=== PATIENT | male | born 1965 | race African-American/Black ===

== ENCOUNTER 2025-05-28 13:19 | Outpatient (AMB) | payer MEDICAID, SELFPAY ==
--- NOTE | 2025-05-28 13:16 | A.PHYSOV_ITS ---
Vital Signs 05/28/25 13:20 Height 5 ft 3 in Weight 231 lb BMI 40.9 Intake Visit Reasons: NPV VMA Ref- left sciatica (MRI 05/25 @ [facility]) Intake Note: Patient is a 60 year old male here today for a new patient office visit. 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 He initially believed it was related to his mattress and replaced it, but the pain persisted. The pain has progressed to the point where it wakes him in the morning, and he reports being unable to walk upon waking. He reports the pain radiates from his back down his left leg, and he is starting to experience it in the right leg as well, accompanied by numbness and tingling. For treatment, he has previously taken prednisone and is currently on tramadol, which he reports provides no significant relief. 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 He has a history of receiving cortisone injections in his knees. I reviewed the referring provider's no prior to consultation. Pain Description - Onset: The patient's back pain started around March. - Location: The pain is located in his lower back. - Radiation: The pain radiates down the back of his left leg and is beginning to radiate into his right leg. - Character: The pain is associated with numbness and tingling, which is more pronounced in the left leg. - Severity: The patient rated his pain as a 4/10 at the time of the visit, but reports it is an 8 or 9 out of 10 in the morning. - Timing: The pain is worse in the morning, described as crippling and preventi ng him from walking. - Exacerbating Factors: Bending forward and leaning backward both increase the pain. - Relieving Factors: He keeps his leg straight, which he states helps. Results - MRI: Findings reviewed, showing the most significant changes at the L4-5 level. - There is moderate foraminal narrowing on the left and moderate to severe foraminal narrowing on the right at L4-5. [facility] Surgical History History of carpal tunnel surgery H/O oral surgery Social History Alcohol intake: current Alcohol intake frequency: does not drink Patient Tobacco Use Status: Current everyday Tobacco user Use of substances other than those prescribed or required for medical reasons: Yes Substance Use Type: Former Substance User Substance Use Type Other:: marijuana, crack cocaine quite September 2018 Review of Systems Narrative Review of Systems - Musculoskeletal: Reports lower back pain. - Neurological: Reports pain radiating down his left leg and beginning in the right leg. - He also reports associated numbness and tingling in his leg. Physical Exam Exam Exam: Physical Exam - General: Patient keeps his left leg in a straight position when standing. - Back: Palpation of the lower back elicits tenderness. - Lumbar range of motion is limited by pain with both forward flexion and backward extension. - Neurological: Reflexes were tested in the lower extremities. - Motor strength testing of the feet elicited some pain and increased tingling in the left leg. Positive straight leg raise - Sensation to touch is altered, with the patient reporting more tingling in the left leg compared to the right. Vital Signs: BMI result Body Mass Index 40.9 Assessment & Plan Assessment & Plan (1) Lumbar radiculopathy: Code(s): M54.16 - Radiculopathy, lumbar region Category: Medical (2) Lumbar spondylosis: Code(s): M47.816 - Spondylosis without myelopathy or radiculopathy, lumbar region Category: Medical Plan Pain Management - Affect: The patient reports feeling incredibly angry upon waking due to pain severity and describes the morning pain as crippling. - Analgesia: He is currently taking tramadol, which he reports does not help. - Activities of Daily Living: The pain significantly impacts his ability to function, particularly in the morning when he is unable to walk. - Goals: The patient's functional goals include being able to perform stretching exercises and to stop taking oral pain medications. Plan Patient was informed and verbally consented to the use of an ambient scribe for clinic note documentation during this visit. 1. Lumbar Spinal Stenosis The patient's clinical presentation of chronic low back pain with left-sided radiculopathy is consistent with his MRI findings of L4-5 foraminal stenosis. His pain is inadequately controlled with oral tramadol. The plan is to proceed with a left L4 transforaminal epidural steroid injection to target the presumed source of his radicular symptoms. This procedure will be performed under X-ray guidance to ensure accurate medication placement and will be offered with sedation for patient comfort. The goal of the injection is to achieve at least 50% pain relief, thereby improving his functional ability and reducing the need for oral pain medication. The order will be placed for the injection, and the patient will be contacted by scheduling once authorization is obtained. Dr. Nguyen will perform the procedure. A follow-up visit will be scheduled with me three weeks after the injection. Discussion Notes I reviewed the patient's MRI findings with him, explaining that there is narrowing at the L4-5 level, which is moderate on the left and [id number] on the right, and that his symptoms are primarily on the left side. I recommended a left L4 transforaminal epidural steroid injection as the next step in treatment. I explained that the procedure involves injecting cortisone into his back to calm the inflammation around the nerve, with a goal of achieving at least 50% pain reduction for a period that typically lasts three to six months. I discussed the risks, including a small risk of infection, bleeding, or nerve damage, and explained that using X-ray guidance minimizes these risks. I noted the benefits include potential for significant pain relief, improved function, and a reduction in the need for oral pain medications. We discussed that he could be put to sleep (sedated) for the procedure, which he preferred. The patient understood the proposed plan and consented to proceed with the injection. I outlined the logistical next steps, including placing the order, waiting for authorization, and scheduling the procedure with Dr. Nguyen, to be followed by a three-week follow-up appointment with me. Patient Instructions - We will schedule you for a cortisone shot (epidural injection) in your lower back to help with your pain. - Our office will call you to schedule the appointment once it is approved by your insurance, which may take a couple of weeks. - When we call, we will give you instructions about eating and taking your medications before the procedure. - You will have the option to be sedated (put to sleep) for the injection. - The goal of this injection is to reduce your pain, which should make it easier for you to move and do activities like stretching, as well as reduce your need for pain pills. - Please schedule a follow-up appointment to see me about three weeks after you have the injection. Orders: Referrals Physiatry Procedure Notification M54.16 - Radiculopathy, lumbar region Coding Level of Care Code New Pt Level 4 (59374) Diagnoses Lumbar radiculopathy M54.16 Lumbar spondylosis M47.816
[2025-05-28 13:20] VITALS: BMI 40.9
--- OUTSIDE RECORDS SUMMARY | 2025-05-28 15:06 | XMS_ITS | Clinical Summary ---
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 Name Role Phone Unavailable Primary Care Provider Unavailabl e Social History Tobacco Use Types Packs/Day Years Used Date Smoking Tobacco: Never Assessed Sex and Gender Information Value Date Recorded Sex Assigned at Not on file Legal Sex Male 8:31 PM EST Gender Identity Not on file Sexual Orientation Not on file Plan of Treatment Health Maintenance Due Date Last Done Comments Colorectal Cancer Screening: Colonoscopy 1967 DTaP,Tdap,and Td Vaccines (1 - Tdap) 1986 Hepatitis B Vaccines (1 of 3 - 19+ 3-dose series) 1986 Pneumococcal Vaccine: 50+ Ye ars (1 of 1 - PCV) 2017 Zoster Vaccines (1 of 2) 2017 Depression Screening 06/10/2024 Cholesterol Screening (Lipid Panel) 12/17/2024 HIV Screening 12/17/2024 Hepatitis C Screening 12/17/2024 Social Influencers of Health Screening 12/17/2024 COVID-19 Vaccine (1 - 2024-2 6 season) 2025 Influenza Vaccine (#1) 2025 RSV Immunization Adult Patie nts (1 - 1-dose 75+ series) 2042 HIB Vaccines Aged Out No longer eligi ble based on patient's age to complete this topic HPV Vaccines Aged Out No longer eligi ble based on patient's age to complete this topic Hepatitis A Vaccines Aged Out No long er eligible based on patient's age to complete this topic IPV Vaccines Aged Out No longer eligi ble based on patient's age to complete this topic MMR Vaccines Aged Out No longer eligi ble based on patient's age to complete this topic Meningococcal ACWY Vaccine Aged Out N o longer eligible based on patient's age to complete this topic Meningococcal B Vaccine Aged Out No l onger eligible based on patient's age to complete this topic RSV Immunization Patients Un wilmer 20 months Aged Out No longer eligible b ased on patient's age to complete this topic Varicella Vaccines Aged Out No longer eligible based on patient's age to complete this topic
--- OUTSIDE RECORDS SUMMARY | 2025-05-28 15:06 | XMS_ITS | Continuity of Care Document ---
Author Organization [facility], Main Office Address [address] [facility] [address] [place] [address] Care Team Providers Care Bobcat Operator Name Role Phone RUTHANN TREJO Primary Care Provider SHAILA HERBERT Referring Provider [facility] Dentist [phone] RADHA MCCABE Dentist [facility] [place] Infectious Disease RADHA FONTANA Hand Surgeon MIRIAM COLLADO Coldfusion MAIK FONTANA Neurosurgeon LYNSEY RUBY General Surgeon [facility] Orthopedic Surgeon TED MARTINI Jacker Feeder ARMOND MUÑOZ Energy Infrastructure Engineer [phone] Assessment No assessment recorded. Plan of Treatment Reminders Order Date Submit Date Provider Last Modified By Organization Details Last Modified Time Details Appointments FOLLOW UP 30MIN 2025 01:00P M Ruthann matt MD Not available Not available Not available PE EST 2025 01:00P M uRthann matt MD Not available Not available Not available Lab None recorded. Referral pain managemen t referral - Back pain since early February and now with radiation into left leg. 2024 025 MARIVEL Israel MD, [address], [place], [address], 04/14/2025 09:49:08 Procedures None recorded. Surgeries None recorded. Imaging XR, lumbar spine - Low back pain with radiation into left leg/foot. R/o lesion 2024 025 DIANNA Not available 04/16/2025 11:58:59 MRI, lumbar spine, w/o contrast - Low back pain for 8 weeks. Doing PT which has not been helpful. Now with radiation into left leg. R/o stenosis. 2024 025 [email or web address] Not available 04/20/2025 08:24:17 Medication Orders Medrol (Jarrod) 4 mg tablets in a dose pack 2024 025 [facility], [address] [place], [address], 04/26/2025 05:02:13 cyclobenz aprine 10 mg tablet 2024 025 [facility], [address] [place], [address], 04/13/2025 15:23:30 meloxicam 15 mg tablet 2024 025 [facility], [address] [place], [address], 04/13/2025 15:23:15 Patient TargetsNo targets recorded. Patient InstructionsNo instructions recorded. 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 Referring Physician: Ruthann Trejo, Family Medicine, Encounter Date: 04/13/2025 Results Created Date Observation Date Name Description Value Unit Range Abnormal Flag Note LastModifiedBy Organization Detail LastModifiedTime 04/16/2004/14/2025 XR, lumba r spine Lumbar Spine 2 or 3 Views Reason : low back pain COMPAR ROBIN: None. FINDIN GS: No bone lesion s or fractu res. Mild multif ocal degene rative disc endpla te spurri ng and disc space narrow ing. Grade 1 shanti listhe sis of L4 on L5. Normal soft tissue s. IMPRES ADAM: Mild degene rative change of the lumbar spine with no radiog raphic eviden ce of lumbar verteb ral fractu re. WSN: [id number] Orderi ng Physic nergo: Ruthann Vazquez Dictat ed By: Rosalba Wagner ra, MD Dictat ed Date/T erica: 11:55 a Review ed By: Rosalba Wagner ra, MD Signed By: Rosalba Wagner ra, MD Signed Date/T erica: 11:55 am Transc ribed By: RONNIE Transc ribed Date/T erica: 11:51 am Patien t Class: Outpat ient [facility] (Outpt Imaging) [address] [facility], [place], [address], 04/16/2025 12:14:44 05/27/20 25 05/25/2025 MRI, lumba r spine , w/o contr ast MRI Lumbar Spine W/O Contra st INDICA TION: Reason : M54.10 ; Clinic al Questi on(s): Other: - TECHNI QUE: Multip lanar, multis equenc e MRI of the lumbar spine was perfor med withou t contra st. COMPAR ROBIN: Lumbar spine radiog raphs 025. FINDIN GS: LOCALI ZER: No additi onal findin gs on limite d locali zer images . NUMBER ING: The study assume s 5 non-ri b-bear ing lumbar type verteb ral bodies . ALIGNM ENT, VERTEB ANS, MARROW , AND DISCS: Subtle shanti listhe sis of L4 on L5. Otherw ise, alignm ent is normal . Verteb ral body height s are preser sohan. Minima l Modic type I signal change s at T11-T1 2, L3-L4, and L4-L5. Multil evel facet arthro ousmane with associ ated degene rative /react lexi marrow signal change s at L4-L5 bilate rally. Disc desicc ation at T11-T1 2, L3-L4, and L4-L5 with loss of interv ertebr al disc height at these levels . Otherw ise, the interv ertebr al discs are mainta ined. CONUS: The conus is normal in signal and contou r, with normal level of termin ation at T12-L1 . PARASP INAL TISSUE S: The parasp inal soft tissue s are unrema rkable . DETAIL ED FINDIN GS BY LEVEL: T12-L1 : No signif icant canal stenos is or neural forami nal narrow ing. L1-L2: No signif icant canal stenos is or neural forami nal narrow ing. L2-L3: Subtle disc bulge. No signif icant canal stenos is. Mild bilate ral neural forami nal narrow ing. L3-L4: Diffus e disc bulge. Facet spurri ng. No signif icant canal stenos is. Mild bilate ral neural forami nal narrow ing. L4-L5: Diffus e disc bulge, ligame ntum flavum thicke prieto, and advanc ed facet arthro ousmane with bilate ral facet joint effusi ons and reacti ve marrow signal change s as above. Mild canal stenos is. Modera te left and modera te to severe right neural forami nal narrow ing crowdi ng of the exitin g right L4 nerve root. L5-S1: Facet arthro ousmane. No signif icant canal stenos is or neural forami nal narrow ing. IMPRES ADAM: Degene rative change s of the lumbar spine as above which are most advanc ed at L4-L5. Modera te to severe right neural forami nal narrow ing with crowdi ng of the exitin g right L4 nerve root at this level. WSN: [id number] Orderi ng Physic negro: Ruthann Vazquez Dictat ed By: Malini Crenshaw MD Dictat ed Date/T erica: 2:50 pm Review ed By: Malini Crenshaw MD Signed By: Malini Crenshaw MD Signed Date/T erica: 2:50 pm Transc ribed By: RONNIE Transc ribed Date/T erica: 2:43 pm Patien t Class: Outpat ient INTERFACE [facility] (Outpt Imaging) [address] , [place], [address], 05/27/2025 14:55:30 Result Notes None recorded. Problems Name Problem SNOMED Code Status Onset Date Resolution Date Notes Provider Name and Address Organization Details Recorded Time Fracture of two ribs 25374364 Active Kellysonja Cordova [facility], [facility] 0 13:52:52 Pityrias is versicol or 84435582 Active Kelly Smarty Ants [facility], [facility] 0 13:52:52 Hearing loss 50407208 Active Kelly [facility], [facility] 0 13:52:52 Human immunode ficiency virus enteropa thy 273515144 Active Mery Gao [facility], [facility] 0 09:57:02 Asymptom atic human immunode ficiency virus infectio n 08203933 Active 1990 Kelly [facility], [facility] 0 13:52:52 Administ ration of bacteria l and viral vaccine Completed 200701/14/2014 RECORDED 02/17/20 08 3:08PM BY KAVYA GRANADOS, OFFICE VISIT Ruthann matt MD [address] [facility] [address], [place], [address], [facility] 6 19:06:01 Administ ration of bacteria l and viral vaccine Completed 200701/15/2014 RECORDED 02/17/20 08 3:08PM BY KAVYA GRANADOS, OFFICE VISIT Ruthann matt MD [address] [facility] [address], [facility] [place], [address], [facility] 6 19:06:01 Administ ration of bacteria l and viral vaccine Completed 200712/22/2013 RECORDED 02/17/20 08 3:08PM BY KAVYA GRANADOS, OFFICE VISIT Ruthann matt MD [address] [facility] [address], [place], [address], [facility] 6 19:06:01 Eruption [id number] Completed 200801/14/2014 RECORDED 02/02/20 09 9:42AM BY AZUCENA COBB ON/ADDEN DUM Ruthann matt MD [address] [facility] [address], [place], [address], [facility] 6 19:06:01 Eruption [id number] Completed 200801/15/2014 RECORDED 02/02/20 09 9:42AM BY AZUCENA COBB ON/ADDEN MARY matt MD [address] [facility] [address], [place], [address], [facility] 6 19:06:01 Eruption [id number] Completed 200812/22/2013 RECORDED 02/02/20 09 9:42AM BY AZUCENA COBB ON/ADDEN DUM Ruthann matt MD [address] [facility] [address], [place], [address], [facility] 6 19:06:01 Influenz a vaccine needed 90958445742 06 Completed 200901/14/2014 RECORDED 06/29/19 10 10:39AM BY RUTHANN SADLER MD, OFFICE VISIT Ruthann matt MD [address] [facility] [address] [facility] [address], [place], [address], [facility] 6 19:06:01 Influenz a vaccine needed 13685360420 06 Completed 200901/15/2014 RECORDED 06/29/19 10 10:39AM BY RUTHANN SADLER MD, OFFICE VISIT Ruthann matt MD [address] [facility] [address] [facility] [address], [place], [address], [facility] 6 19:06:01 Influenz a vaccine needed 25649440181 06 Completed 200912/22/2013 RECORDED 06/29/19 10 10:39AM BY RUTHANN SADLER MD, OFFICE VISIT Ruthann matt MD [address], [facility] [place], [address], [facility] 6 19:06:01 Allergic rhinitis 25472986 Completed 200901/14/2014 RECORDED 05/02/20 10 1:28PM BY PRANEETH SKY, ANNOTATI ON/ADDEN DUM Ruthann matt MD [address], [facility] [place], [address], [facility] 7 14:14:34 Allergic rhinitis 95125174 Completed 200901/15/2014 RECORDED 05/02/20 10 1:28PM BY PRANEETH SKY, ANNOTATI ON/ADDEN DUM Ruthann matt MD [address], [facility] [place], [address], [facility] 7 14:14:34 Allergic rhinitis 46493888 Completed 200912/22/2013 RECORDED 05/02/20 10 1:28PM BY PRANEETH SKY, ANNOTATI ON/ADDEN DUM Ruthann matt MD [address] [facility] [address], [facility] [place], [address], [facility] 7 14:14:34 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 Followed by Dr Modi. On lifelong Coumadin . Kelly warren, [facility] 0 13:52:52 Abdomina l pain 44436452 Completed 201101/14/2014 IMPRESSI ON: X 10 DAYS, WITH FAILURE TO MOVE BOWELS. NO EFFECT WITH ENEMAS AND OTC LAXATIVE S. STAT ABDO XRAY APPEARS NEG. I HAVE CONCERN REGARDIN G HIS HIGH LEVEL OF DISCOMFO RT, LACK OF RESPONSE TO MULTIPLE ENEMAS AND OTC LAXATIVE S. DISCUSSE D OPTIONS, ELECTED TO SEEK IMMEDIAT E TX/W/U VIA ER AT [facility]. CALLED IN EXPECT.; RECORDED 01/10/20 12 10:20AM BY AZUCENA FULLER ON/DAVID matt MD [address] [facility] [address], [place], [address], [facility] 6 19:06:01 Left upper quadrant pain 715150215 Completed 201101/14/2014 RECORDED 01/10/20 12 10:20AM BY AZUCENA FULLER/DAVID matt MD [address] [facility] [address], [place], [address], [facility] 6 19:06:01 Chronic allergic conjunct ivitis 44805814 Completed 201101/14/2014 RECORDED 01/10/20 12 10:20AM BY AZUCENA FULLER/DAVID matt MD [address] [facility] [address], [place], [address], [facility] 6 19:06:01 Acute asthma 132878169 Completed 201101/14/2014 IMPRESSI ON: MILD; RECORDED 01/10/20 12 10:20AM BY AZUCENA FULLER ON/DAVID matt MD [address] [facility] [address], [place], [address], [facility] 6 19:06:01 Digestiv e symptom 762514048 Completed 201101/14/2014 RECORDED 01/10/20 12 10:20AM BY AZUCENA FULLER/DAVID matt MD [address] [facility] [address], [place], [address], [facility] 6 19:06:01 Bronchit is 38590035 Completed 201101/14/2014 RECORDED 01/10/20 12 10:20AM BY AZUCENA FULLER ON/DAVID matt MD [address] [facility] [address], [place], [address], [facility] 6 19:06:01 Pain in limb 03090306 Completed 201101/14/2014 RECORDED 01/10/20 12 10:20AM BY AZUCENA FULLER ON/DAVID matt MD [address] [facility] [address], [place], [address], [facility] 6 19:06:01 Conjunct ivitis 8765925 Completed 201101/14/2014 IMPRESSI ON: SEE OTHER MESSAGE; RECORDED 01/10/20 12 10:20AM BY AZUCENA FULLER ON/DAVID matt MD [address] [facility] [address], [place], [address], [facility] 6 19:06:01 Counseli ng Completed 201101/14/2014 IMPRESSI ON: RE COUMADIN MONITORI NG, DIET. DUE FOR REPEAT PT/INR TODAY, THEN AGAIN SATURDAY. ANDRÉS BROWN WITH BRANCH LEAD WHO WILL BE IN COMMUNIC ATION WITH PT WE CONTINUE TO FOLLOW TO THERAPEU TIC LEVEL AND THEN W/REG MONITORI NG.; RECORDED 01/10/20 12 10:20AM BY AZUCENA FULLER/DAVID matt MD [address] [facility] [address], [place], [address], [facility] 6 19:06:01 Function al visual loss 618842665 Completed 201101/14/2014 RECORDED 01/10/20 12 10:20AM BY AZUCENA FULLER ON/DAVID matt MD [address] [facility] [address], [place], [address], [facility] 6 19:06:01 Abnormal weight gain 416288409 Completed 201101/14/2014 RECORDED 01/10/20 12 10:20AM BY AZUCENA FULLER ON/DAVID matt MD [address] [facility] [address], [facility] [place], [address], [facility] 6 19:06:01 Hearing loss 47442743 Completed 201101/14/2014 RECORDED 01/10/20 12 10:20AM BY AZUCENA FULLER ON/DAVID matt MD [address] [facility] [address], [facility] [place], [address], [facility] 6 19:06:01 Immunode ficiency disorder 046244177 Completed 201101/14/2014 RECORDED 01/10/20 12 10:20AM BY AZUCENA FULLER ON/DAVID matt MD [address] [facility] [address], [place], [address], [facility] 6 19:06:01 Disorder of upper respirat ory system Completed 201101/14/2014 RECORDED 01/10/20 12 10:20AM BY AZUCENA FULLER ON/DAVID matt MD [address] [facility] [address], [place], [address], [facility] 6 19:06:01 Breast finding [id number] Completed 201101/14/2014 RECORDED 01/10/20 12 10:20AM BY AZUCENA FULLER ON/DAVID matt MD [address] [facility] [address], [place], [address], [facility] 6 19:06:01 Abnormal ity of systemic vein Completed 201101/14/2014 RECORDED 01/10/20 12 10:20AM BY AZUCENA FULLER ON/DAVID matt MD [address] [facility] [address], [place], [address], [facility] 6 19:06:01 Shoulder joint pain 198484092 Completed 201101/14/2014 RECORDED 01/10/20 12 10:20AM BY AZUCENA FULLER ON/DAVID matt MD [address] [facility] [address], [place], [address], [facility] 6 19:06:01 Phlebiti s and thrombop hlebitis Completed 201101/14/2014 RECORDED 01/10/20 12 10:20AM BY AZUCENA FULLER ON/DAVID matt MD [address] [facility] [address], [place], [address], [facility] 6 19:06:01 Abdomina l pain 62487933 Completed 201101/15/2014 IMPRESSI ON: X 10 DAYS, WITH FAILURE TO MOVE BOWELS. NO EFFECT WITH ENEMAS AND OTC LAXATIVE S. STAT ABDO XRAY APPEARS NEG. I HAVE CONCERN REGARDIN G HIS HIGH LEVEL OF DISCOMFO RT, LACK OF RESPONSE TO MULTIPLE ENEMAS AND OTC LAXATIVE S. DISCUSSE D OPTIONS, ELECTED TO SEEK IMMEDIAT E TX/W/U VIA ER AT [facility]. CALLED IN EXPECT.; RECORDED 01/10/20 12 10:20AM BY AZUCENA FULLER/DAVID matt MD [address] [facility] [address], [place], [address], [facility] 6 19:06:01 Left upper quadrant pain 391796311 Completed 201101/15/2014 RECORDED 01/10/20 12 10:20AM BY AZUCENA FULLER ON/DAVID matt MD [address], [facility] [place], [address], [facility] 6 19:06:01 Chronic allergic conjunct ivitis 85453299 Completed 201101/15/2014 RECORDED 01/10/20 12 10:20AM BY AZUCENA FULLER ON/DAVID matt MD [address], [facility] [place], [address], [facility] 6 19:06:01 Acute asthma 286168531 Completed 201101/15/2014 IMPRESSI ON: MILD; RECORDED 01/10/20 12 10:20AM BY AZUCENA FULLER ON/DAVID matt MD [address], [place], [address], [facility] 6 19:06:01 Digestiv e symptom 184377855 Completed 201101/15/2014 RECORDED 01/10/20 12 10:20AM BY AZUCENA FULLER ON/DAVID matt MD [address], [facility] [place], [address], [facility] 6 19:06:01 Bronchit is [id number] Completed 201101/15/2014 RECORDED 01/10/20 12 10:20AM BY AZUCENA FULLER ON/DAVID matt MD [address], [facility] [place], [address], [facility] 6 19:06:01 Pain in limb 84067507 Completed 201101/15/2014 RECORDED 01/10/20 12 10:20AM BY AZUCENA FULLER/DAVID matt MD [address] [facility] [address], [place], [address], [facility] 6 19:06:01 Conjunct ivitis 8588273 Completed 201101/15/2014 IMPRESSI ON: SEE OTHER MESSAGE; RECORDED 01/10/20 12 10:20AM BY AZUCENA FULLER ON/DAVID matt MD [address] [address], [facility] [place], [address], [facility] 6 19:06:01 Counseli ng Completed 201101/15/2014 IMPRESSI ON: RE COUMADIN MONITORI NG, DIET. DUE FOR REPEAT PT/INR TODAY, THEN AGAIN SATURDAY. ANDRÉS BROWN WITH BRANCH LEAD WHO WILL BE IN COMMUNIC ATION WITH PT WE CONTINUE TO FOLLOW TO THERAPEU TIC LEVEL AND THEN W/REG MONITORI NG.; RECORDED 01/10/20 12 10:20AM BY AZUCENA FULLER ON/DAVID matt MD [address] [address], [place], [address], [facility] 6 19:06:01 Function al visual loss 261295065 Completed 201101/15/2014 RECORDED 01/10/20 12 10:20AM BY AZUCENA FULLER ON/DAVID matt MD [address] [facility] [address], [facility] [place], [address], [facility] 6 19:06:01 Abnormal weight gain 543715287 Completed 201101/15/2014 RECORDED 01/10/20 12 10:20AM BY AZUCENA FULLER/DAVID matt MD [address] [address], [place], [address], [facility] 6 19:06:01 Hearing loss 12501497 Completed 201101/15/2014 RECORDED 01/10/20 12 10:20AM BY AZUCENA FULLER ON/DAVID matt MD [address] [facility] [address], [place], [address], [facility] 6 19:06:01 Immunode ficiency disorder 682866724 Completed 201101/15/2014 RECORDED 01/10/20 12 10:20AM BY AZUCENA FULLER ON/DAVID matt MD [address] [facility] [address], [place], [address], [facility] 6 19:06:01 Disorder of upper respirat ory system Completed 201101/15/2014 RECORDED 01/10/20 12 10:20AM BY AZUCENA FULLER ON/DAVID matt MD [address] [facility] [address], [place], [address], [facility] 6 19:06:01 Breast finding [id number] Completed 201101/15/2014 RECORDED 01/10/20 12 10:20AM BY AZUCENA FULLER ON/DAVID matt MD [address] [facility] [address], [place], [address], [facility] 6 19:06:01 Abnormal ity of systemic vein Completed 201101/15/2014 RECORDED 01/10/20 12 10:20AM BY AZUCENA FULLER ON/DAVID matt MD [address] [facility] [address], [place], [address], [facility] 6 19:06:01 Shoulder joint pain 893418027 Completed 201101/15/2014 RECORDED 01/10/20 12 10:20AM BY AZUCENA FULLER/DAVID matt MD [address] [facility] [address], [place], [address], [facility] 6 19:06:01 Phlebiti s and thrombop hlebitis Completed 201101/15/2014 RECORDED 01/10/20 12 10:20AM BY AZUCENA FULLER ON/DAVID matt MD [address] [facility] [address], [place], [address], [facility] 6 19:06:01 Abdomina l pain 72880456 Completed 201112/22/2013 IMPRESSI ON: X 10 DAYS, WITH FAILURE TO MOVE BOWELS. NO EFFECT WITH ENEMAS AND OTC LAXATIVE S. STAT ABDO XRAY APPEARS NEG. I HAVE CONCERN REGARDIN G HIS HIGH LEVEL OF DISCOMFO RT, LACK OF RESPONSE TO MULTIPLE ENEMAS AND OTC LAXATIVE S. DISCUSSE D OPTIONS, ELECTED TO SEEK IMMEDIAT E TX/W/U VIA ER AT [facility]. CALLED IN EXPECT.; RECORDED 01/10/20 12 10:20AM BY AZUCENA FULLER/DAVID matt MD [address] [facility] [address], [place], [address], [facility] 6 19:06:01 Left upper quadrant pain 398743677 Completed 201112/22/2013 RECORDED 01/10/20 12 10:20AM BY AZUCENA FULLER/DAVID matt MD [address] [facility] [address], [place], [address], [facility] 6 19:06:01 Chronic allergic conjunct ivitis 42064666 Completed 201112/22/2013 RECORDED 01/10/20 12 10:20AM BY AZUCENA FULLER ON/DAVID matt MD [address] [facility] [address], [place], [address], [facility] 6 19:06:01 Acute asthma 488586165 Completed 201112/22/2013 IMPRESSI ON: MILD; RECORDED 01/10/20 12 10:20AM BY AZUCENA FULLER ON/DAVID matt MD [address] [facility] [address], [place], [address], [facility] 6 19:06:01 Digestiv e symptom 940219829 Completed 201112/22/2013 RECORDED 01/10/20 12 10:20AM BY AZUCENA FULLER ON/DAVID matt MD [address] [facility] [address], [place], [address], [facility] 6 19:06:01 Bronchit is 99143941 Completed 201112/22/2013 RECORDED 01/10/20 12 10:20AM BY AZUCENA FULLER ON/DAVID matt MD [address] [facility] [address], [place], [address], [facility] 6 19:06:01 Pain in limb 62819043 Completed 201112/22/2013 RECORDED 01/10/20 12 10:20AM BY AZUCENA FULLER/DAVID matt MD [address] [facility] [address], [place], [address], [facility] 6 19:06:01 Conjunct ivitis 1265724 Completed 201112/22/2013 IMPRESSI ON: SEE OTHER MESSAGE; RECORDED 01/10/20 12 10:20AM BY AZUCENA FULLER ON/DAVID matt MD [address], [place], [address], [facility] 6 19:06:01 Counseli belen Completed 201112/22/2013 IMPRESSI ON: RE COUMADIN MONITORI NG, DIET. DUE FOR REPEAT PT/INR TODAY, THEN AGAIN SATURDAY. ANDRÉS BROWN WITH BRANCH LEAD WHO WILL BE IN COMMUNIC ATION WITH PT WE CONTINUE TO FOLLOW TO THERAPEU TIC LEVEL AND THEN W/REG MONITORI NG.; RECORDED 01/10/20 12 10:20AM BY AZUCENA FULLER/DAVID matt MD [address] [facility] [address], [place], [address], [facility] 6 19:06:01 Function al visual loss 102322025 Completed 201112/22/2013 RECORDED 01/10/20 12 10:20AM BY AZUCENA FULLER ON/DAVID matt MD [address] [facility] [address], [place], [address], [facility] 6 19:06:01 Abnormal weight gain 122333748 Completed 201112/22/2013 RECORDED 01/10/20 12 10:20AM BY AZUCENA FULLER/DAVID matt MD [address] [facility] [address], [place], [address], [facility] 6 19:06:01 Hearing loss 98472562 Completed 201112/22/2013 RECORDED 01/10/20 12 10:20AM BY AZUCENA FULLER/DAVID matt MD [address] [facility] [address], [place], [address], [facility] 6 19:06:01 Immunode ficiency disorder 071010223 Completed 201112/22/2013 RECORDED 01/10/20 12 10:20AM BY AZUCENA FULLER/DAVID matt MD [address], [place], [address], [facility] 6 19:06:01 Disorder of upper respirat ory system Completed 201112/22/2013 RECORDED 01/10/20 12 10:20AM BY AZUCENA FULLER/DAVID matt MD [address], [place], [address], [facility] 6 19:06:01 Breast finding [id number] Completed 201112/22/2013 RECORDED 01/10/20 12 10:20AM BY AZUCENA FULLER/DAVID matt MD [address], [place], [address], [facility] 6 19:06:01 Abnormal ity of systemic vein Completed 201112/22/2013 RECORDED 01/10/20 12 10:20AM BY AZUCENA FULLER/DAVID matt MD [address], [place], [address], [facility] 6 19:06:01 Shoulder joint pain 781745653 Completed 201112/22/2013 RECORDED 01/10/20 12 10:20AM BY AZUCENA FULLER/DAVID matt MD [address], [place], [address], [facility] 6 19:06:01 Phlebiti s and thrombop hlebitis Completed 201112/22/2013 RECORDED 01/10/20 12 10:20AM BY CAMRON FULLERATI ON/DAVID matt MD [address] [address], [place], [address], [facility] 6 19:06:01 Acute pharyngi tis 717393624 Completed 201101/14/2014 IMPRESSI ON: RAPID STREP NEGATIVE , C/W VIRAL INFECTIO N, RECOMMEN D SUPPORTI VE TREATMEN T.; RECORDED 04/14/20 12 11:30AM BY MERY RHODES I, ANNOTATI ON/ADDEN MARY matt MD [address] [address], [place], [address], [facility] 6 19:06:01 Acute pharyngi tis [id number] Completed 201101/15/2014 IMPRESSI ON: RAPID STREP NEGATIVE , C/W VIRAL INFECTIO N, RECOMMEN D SUPPORTI VE TREATMEN T.; RECORDED 04/14/20 12 11:30AM BY MERY RHODES I, CAMRONATI ON/DAVID matt MD [address] [address], [place], [address], [facility] 6 19:06:01 Acute pharyngi tis [id number] Completed 201112/22/2013 IMPRESSI ON: RAPID STREP NEGATIVE , C/W VIRAL INFECTIO N, RECOMMEN D SUPPORTI VE TREATMEN T.; RECORDED 04/14/20 12 11:30AM BY CAMRON FULLERATI ON/ADDDERECK matt MD [address] [address], [place], [address], [facility] 6 19:06:01 Depressi ve disorder [id number] Completed 201201/14/2014 RECORDED 07/09/19 13 1:05AM BY QUIN RODRIGUEZ MA, ANNOTATI ON/ADDEN MARY matt MD [address] [facility] [address], [place], [address], [facility] 6 19:06:01 Onychomy cosis due to dermatop hyte [id number] Completed 201201/14/2014 RECORDED 07/09/19 13 1:06AM BY AZUCENA FULLER ON/LUCRECIAEN MARY matt MD [address] [facility] [address], [place], [address], [facility] 6 19:06:01 Depressi ve disorder 34268599 Completed 201201/15/2014 RECORDED 07/09/19 13 1:05AM BY QUIN RODRIGUEZ MA, AZUCENA ON/LUCRECIAEN MARY matt MD [address] [facility] [address], [facility] [place], [address], [facility] 6 19:06:01 Onychomy cosis due to dermatop hyte 869725026 Completed 201201/15/2014 RECORDED 07/09/19 13 1:06AM BY AZUCENA FULLER ON/DAVID matt MD [address] [facility] [address], [place], [address], [facility] 6 19:06:01 Depressi ve disorder [id number] Completed 201212/22/2013 RECORDED 07/09/19 13 1:05AM BY QUIN RODRIGUEZ MA, AZUCENA ON/LUCRECIAEN MARY matt MD [address] [facility] [address], [place], [address], [facility] 6 19:06:01 Onychomy cosis due to dermatop hyte 386894212 Completed 201212/22/2013 RECORDED 07/09/19 13 1:06AM BY AZUCENA FULLER ON/DAVID matt MD [address], [place], [address], [facility] 6 19:06:01 Knee pain Completed 201201/14/2014 RECORDED 07/15/19 13 11:37AM BY AZUCENA FULLER ON/DAVID matt MD [address], [facility] [place], [address], [facility] 6 19:06:01 Renewal of prescrip tion Completed 201201/14/2014 RECORDED 07/15/19 13 11:37AM BY AZUCENA FULLER ON/DAVID matt MD [address], [facility] [place], [address], [facility] 6 19:06:01 Knee pain Completed 201201/15/2014 RECORDED 07/15/19 13 11:37AM BY AZUCENA FULLER ON/DAVID matt MD [address], [facility] [place], [address], [facility] 6 19:06:01 Renewal of prescrip tion Completed 201201/15/2014 RECORDED 07/15/19 13 11:37AM BY AZUCENA FULLER ON/DAVID matt MD [address], [facility] [place], [address], [facility] 6 19:06:01 Knee pain Completed 201212/22/2013 RECORDED 07/15/19 13 11:37AM BY AZUCENA FULLER ON/DAVID matt MD [address], [facility] [place], [address], [facility] 6 19:06:01 Renewal of prescrip tion Completed 201212/22/2013 RECORDED 07/15/19 13 11:37AM BY AZUCENA FULLER/DAVID matt MD [address] [facility] [address], [facility] [place], [address], [facility] 6 19:06:01 Abscess of eyelid [id number] Completed 201201/14/2014 IMPRESSI ON: WILL FIND HOW TO GET HIM AN EYE DR APPT OR BE EVALUATE D URGENTLY SOMEWHER E. PT ALSO EXAMINED BY DR. RUPERT Perez; RECORDED 11/25/19 13 12:54PM BY AZUCENA FULLER/DAVID matt MD [address] [facility] [address], [facility] [place], [address], [facility] 6 19:06:01 Abscess of eyelid [id number] Completed 201201/15/2014 IMPRESSI ON: WILL FIND HOW TO GET HIM AN EYE DR APPT OR BE EVALUATE D URGENTLY SOMEWHER E. PT ALSO EXAMINED BY DR. RUPERT Perez; RECORDED 11/25/19 13 12:54PM BY AZUCENA FULLER/DAVID matt MD [address] [facility] [address], [facility] [place], [address], [facility] 6 19:06:01 Abscess of eyelid [id number] Completed 201212/22/2013 IMPRESSI ON: WILL FIND HOW TO GET HIM AN EYE DR APPT OR BE EVALUATE D URGENTLY SOMEWHER E. PT ALSO EXAMINED BY DR. RUPERT Perez; RECORDED 11/25/19 13 12:54PM BY AZUCENA FULLER/DAVID matt MD [address] [facility] [address], [facility] [place], [address], [facility] 6 19:06:01 External hordeolu m [id number] Completed 201201/14/2014 IMPRESSI ON: HAS AN OPHTHO APPT NEXT WEEK.; RECORDED 03/05/20 13 8:56AM BY AZUCENA FULLER ON/DAVID matt MD [address] [facility] [address], [place], [address], [facility] 6 19:06:01 External hordeolu m [id number] Completed 201201/15/2014 IMPRESSI ON: HAS AN OPHTHO APPT NEXT WEEK.; RECORDED 03/05/20 13 8:56AM BY AZUCENA FULLER ON/DAVID matt MD [address] [facility] [address], [place], [address], [facility] 6 19:06:01 External hordeolu m [id number] Completed 201212/22/2013 IMPRESSI ON: HAS AN OPHTHO APPT NEXT WEEK.; RECORDED 03/05/20 13 8:56AM BY AZUCENA FULLER ON/DAVID matt MD [address] [facility] [address], [place], [address], [facility] 6 19:06:01 Adult health examinat ion Completed 201201/14/2014 RECORDED 04/06/20 13 10:40AM BY AZUCENA FULLER ON/DAVID matt MD [address] [facility] [address], [place], [address], [facility] 6 19:06:01 Adult health examinat ion Completed 201201/15/2014 RECORDED 04/06/20 13 10:40AM BY AZUCENA UFLLER ON/DAVID matt MD [address] [address], [place], [address], [facility] 6 19:06:01 Adult health examinat ion Completed 201212/22/2013 RECORDED 04/06/20 13 10:40AM BY AZUCENA FULLER ON/DAVID matt MD [address] [facility] [address], [place], [address], [facility] 6 19:06:01 Acute upper respirat ory infectio n [id number] Completed 201201/14/2014 IMPRESSI ON: NO SIGNS FOR BACTERIA L INFECTIO ; WILL TREAT WITH CODEINE AND HE WILL CALL NEXT WEEK IF HIS SX PERSIST. ; RECORDED 05/04/20 13 11:01AM BY AZUCENA FULLER ON/DAVID matt MD [address] [facility] [address], [place], [address], [facility] 6 19:06:01 Acute upper respirat ory infectio n [id number] Completed 201201/15/2014 IMPRESSI ON: NO SIGNS FOR BACTERIA L INFECTIO ; WILL TREAT WITH CODEINE AND HE WILL CALL NEXT WEEK IF HIS SX PERSIST. ; RECORDED 05/04/20 13 11:01AM BY AZUCENA FULLER ON/DAVID matt MD [address] [facility] [address], [place], [address], [facility] 6 19:06:01 Acute upper respirat ory infectio n [id number] Completed 201212/22/2013 IMPRESSI ON: NO SIGNS FOR BACTERIA L INFECTIO ; WILL TREAT WITH CODEINE AND HE WILL CALL NEXT WEEK IF HIS SX PERSIST. ; RECORDED 05/04/20 13 11:01AM BY AZUCENA FULLER ON/DAVID matt MD [address] [facility] [address], [place], [address], [facility] 6 19:06:01 Anemia [id number] Completed 201301/14/2014 IMPRESSI ON: HGB 13 IN HOSPITAL BEFORE DISCHARG E, WILL REPEAT IN 2 WEEKS, LABSLIP GIVEN; RECORDED 08/04/19 14 10:34AM BY AZUCENA FULLER ON/DAVID matt MD [address], [facility] [place], [address], [facility] 6 19:06:01 Hemorrha ge of rectum and anus [id number] Completed 201301/14/2014 RECORDED 08/04/19 14 10:34AM BY AZUCENA FULLER ON/DAVID matt MD [address] [facility] [address], [place], [address], [facility] 6 19:06:01 Cough [id number] Completed 201301/14/2014 IMPRESSI ON: C/W VIRAL ILLNESS, LUNGS ARE CLEAR TODAY AND AFEBRILE , RECOMMEN D SUPPORTI VE TX INCL. REST AND HYDRATIO N BUT ADVISE TO RTC IF PERSISTE NT FEVER OR DYSPNEA. ; RECORDED 08/04/19 14 10:34AM BY AZUCENA FULLER ON/DAVID matt MD [address] [facility] [address], [facility] [place], [address], [facility] 6 19:06:01 Tobacco dependen ce syndrome 30691246 Completed 201301/14/2014 RECORDED 08/04/19 14 10:34AM BY [facility]NA [facility] ON[facility] 8 08:[facility]:50 Fever [id number] Completed 201301/14/2014 IMPRESSI ON: WITH TACHYPNE A, TACHYCAR KYLIE, ABDOMINA L TENDERNE SS, H/O SUPERIOR MESENTER IC VEIN THROMBOS IS ON COUMADIN , HIV+, SEND TO ER VIA AMBULANC E; RECORDED 08/04/19 14 10:34AM BY AZUCENA FULLER ON/DAVID matt MD [address], [place], [address], [facility] 6 19:06:01 Follow-u p encounte r Completed 201301/14/2014 RECORDED 08/04/19 14 10:34AM BY AZUCENA FULLER ON/DAVID matt MD [address], [place], [address], [facility] 6 19:06:01 Influenz a with respirat ory manifest ation other than pneumoni a Completed 201301/14/2014 IMPRESSI ON: RESOLVIN G, ON TAMIFLU, WILL COMPLETE COURSE; RECORDED 08/04/19 14 10:34AM BY AZUCENA FULLER ON/DAVID matt MD [address], [place], [address], [facility] 6 19:06:01 Anemia [id number] Completed 201301/15/2014 IMPRESSI ON: HGB 13 IN HOSPITAL BEFORE DISCHARG E, WILL REPEAT IN 2 WEEKS, LABSLIP GIVEN; RECORDED 08/04/19 14 10:34AM BY AZUCENA FULLER ON/DAVID matt MD [address], [place], [address], [facility] 6 19:06:01 Hemorrha ge of rectum and anus 683948441 Completed 201301/15/2014 RECORDED 08/04/19 14 10:34AM BY AZUCENA FULLER ON/DAVID matt MD [address], [place], [address], [facility] 6 19:06:01 Cough [id number] Completed 201301/15/2014 IMPRESSI ON: C/W VIRAL ILLNESS, LUNGS ARE CLEAR TODAY AND AFEBRILE , RECOMMEN D SUPPORTI VE TX INCL. REST AND HYDRATIO N BUT ADVISE TO RTC IF PERSISTE NT FEVER OR DYSPNEA. ; RECORDED 08/04/19 14 10:34AM BY AZUCENA FULLER ON/DAVID matt MD [address] [facility] [address], [place], [address], [facility] 6 19:06:01 Tobacco dependen ce syndrome [id number] Completed 201301/15/2014 RECORDED 08/04/19 14 10:34AM BY AZUCENA FULLER ON/DAVID [facility] [facility] 8 08:51:50 Fever [id number] Completed 201301/15/2014 IMPRESSI ON: WITH TACHYPNE A, TACHYCAR KYLIE, ABDOMINA L TENDERNE SS, H/O SUPERIOR MESENTER IC VEIN THROMBOS IS ON COUMADIN , HIV+, SEND TO ER VIA AMBULANC E; RECORDED 08/04/19 14 10:34AM BY AZUCENA FULLER ON/DAVID matt MD [address] [facility] [address], [place], [address], [facility] 6 19:06:01 Follow-u p encounte r Completed 201301/15/2014 RECORDED 08/04/19 14 10:34AM BY AZUCENA FULLER/DAVID matt MD [address] [facility] [address], [place], [address], [facility] 6 19:06:01 Influenz a with respirat ory manifest ation other than pneumoni a Completed 201301/15/2014 IMPRESSI ON: RESOLVIN G, ON TAMIFLU, WILL COMPLETE COURSE; RECORDED 08/04/19 14 10:34AM BY AZUCENA FULLER ON/DAVID mtat MD [address], [place], [address], [facility] 6 19:06:01 Anemia [id number] Completed 201312/22/2013 IMPRESSI ON: HGB 13 IN HOSPITAL BEFORE DISCHARG E, WILL REPEAT IN 2 WEEKS, LABSLIP GIVEN; RECORDED 08/04/19 14 10:34AM BY AZUCENA FULLER ON/DAVID matt MD [address] [facility] [address], [place], [address], [facility] 6 19:06:01 Hemorrha ge of rectum and anus [id number] Completed 201312/22/2013 RECORDED 08/04/19 14 10:34AM BY AZUCENA FULLER ON/DAVID matt MD [address] [facility] [address], [place], [address], [facility] 6 19:06:01 Cough 07238480 Completed 201312/22/2013 IMPRESSI ON: C/W VIRAL ILLNESS, LUNGS ARE CLEAR TODAY AND AFEBRILE , RECOMMEN D SUPPORTI VE TX INCL. REST AND HYDRATIO N BUT ADVISE TO RTC IF PERSISTE NT FEVER OR DYSPNEA. ; RECORDED 08/04/19 14 10:34AM BY AZUCENA FULLER ON/DAVID matt MD [address] 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 , HIV+, SEND TO ER VIA AMBULANC E; RECORDED 08/04/19 14 10:34AM BY AZUCENA FULLER ON/DAVID matt MD [address], [place], [address], [facility] 6 19:06:01 Follow-u p encounte r Completed 201312/22/2013 RECORDED 08/04/19 14 10:34AM BY AZUCENA FULLER ON/DAVID matt MD [address], [place], [address], [facility] 6 19:06:01 Influenz a with respirat ory manifest ation other than pneumoni a Completed 201312/22/2013 IMPRESSI ON: RESOLJESICA G, ON TAMIFLU, WILL COMPLETE COURSE; RECORDED 08/04/19 14 10:34AM BY AZUCENA FULLER ON/DAVID matt MD [address] [facility] [address], [place], [address], [facility] 6 19:06:01 Arthropa thy of knee joint 816051540 Active 2013 IMPRESSI ON: FOLLOWED BY [facility]; MCL sprain with medial compartm ent OA. Prescrib ed a rigid brace. 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 On lifelong coumadin Kelly warren [facility] 0 13:52:52 Degenera tion of lumbar interver tebral disc 56646766 Active 2013 Kelly warren [facility] 0 13:52:52 Blood coagulat ion disorder 83294026 Active 2013 Was positive for anticard iolipin Ab but has become negative . Followed by Dr Modi and on lifelong anticoag ulation. Kelly warren [facility] 0 13:52:52 Asthma 020555018 Active 2013 Kelly warren [facility] 0 13:52:52 Recurren t major depressi ve episodes , moderate 998503009 Active 2013 Kelly warren [facility] 0 13:52:52 Pure hypercho lesterol emia 141563896 Completed 201303/21/2017 RECORDED 12/03/19 14 2:09PM BY MERY RHODES I, OFFICE VISIT Ruthann matt MD [address] [facility] [address], [place], [address] 7 11:41:51 Insomnia 247428011 Active 2013 Kelly warren [facility] 0 13:52:52 Tobacco dependen ce syndrome 36323587 Active 2013 Kellysonja warren [facility] 0 13:52:52 Abnormal anal Papanico laou smear 128084749 Active 2014 Referred to surgery. Negative for AIN; needs yearly PAPs Kelly warren [facility] 0 13:52:52 Low grade squamous intraepi thelial lesion on anal Papanico laou smear [id number] 9106 Active 2015 followed by surgery; had anal biopsy which was negative ; followed yearly. Kelly warren [facility] 0 13:52:52 Hyperlip idemia 83237109 Active 2016 Kelly warren [facility] 0 13:52:52 Allergic rhinitis 33462511 Active 2016 Kellysonja warren, [facility] 0 13:52:52 Traumati c dislocat ion of joint of finger 063442628 Active 2017 4th finger. Reduced in ER Kelly warren, [facility] 0 13:52:52 Carpal tunnel syndrome of right wrist 66320815448 9108 Active 2018 Kelly warren, [facility] 0 13:52:52 Alcohol dependen ce 45568680 Active 2018 [facility], [facility] 0 13:52:52 Patellof emoral osteoart hritis 433422877 Active 2018 Nae lorenzo; seen at [facility]; PT and meds are only treatmen t. Kellysonja warren, [facility] 0 13:52:52 Gastroes ophageal reflux disease 788705701 Active 2018 [facility], [facility] 0 13:52:52 Obstruct lexi sleep apnea syndrome 55016064 Active 2019 [facility], [facility] 0 13:52:52 Essentia l hyperten adam 71850708 Active 2019 [facility], [facility] 0 13:52:52 Right lateral elbow tendinop athy 25655122962 9107 Active 2019 seen by ortho [facility], [facility] 0 13:52:52 Stenosin g tenosyno vitis 80205326 Active 2020 left ring finger; seen by Dr Fontana; consider ing surgery. Ruthann matt MD [address] [facility] [address], [facility] [address] , [facility] 1 08:42:39 Cyst 016241776 Active 2020 retinacu lar cyst of left ring finger. Dr Addi self ds surgery. Ruthann matt MD [address], [place], [address], [facility] 1 08:43:24 Dizzines s 065075394 Active 2020 Gertrude Woods PA-C [address], [place], [address], [facility] 1 15:12:20 Eczema of ear lobe 84923043 Active 2020 Gertrude Woods PA-C [address] [facility] [address], [place], [address], [facility] 1 15:17:29 SARS-CoV -2 Active 2021 Quin childs [place] null, [facility] 2 13:57:23 Hypercoa gulabili ty state 23204826 Active 2021 Josue Bacon MD [address], [place], [address], [facility] 2 14:33:58 Generali zed anxiety disorder 62215372 Active 2022 Ruthann matt MD [address] [facility] [address], [place], [address], [facility] 3 15:36:59 Type 2 diabetes mellitus 19223552 Active 2024 Ruthann matt MD [address] [facility] [facility] [address], [place], [address], [facility] 5 07:42:07 Problem Notes None recorded. Procedures Surgical History Date Name Laterality Status Provider Name and Address Organization Details Recorded Time 11/03/19 22 Carpal tunnel surgery completed Shireen Solorio [facility] 11/20/2021 15:10:46 10/22/19 21 Colonoscopy completed Deepika Peralta [facility] 10/28/2020 11:18:56 07/22/19 19 Carpal tunnel surgery completed Quin jeffrey MA [facility] 03/05/2019 15:05:37 05/28/20 18 Mini-Cog Test completed Mery Gao [facility] 05/28/2018 13:34:35 03/05/20 18 Unlisted px hands/fingers completed Shireen Solorio [facility] 03/06/2019 15:18:47 02/14/20 18 open reduction of dislocation completed Quin jeffrey MA [facility] 03/05/2019 15:10:44 01/11/20 18 tooth extraction completed Quin jeffrey MA [facility] 03/05/2019 14:40:16 05/31/20 15 Anoscopy and biopsy completed Quin jeffrey MA [facility] 03/05/2019 14:39:24 04/15/20 15 microscopic examination of anal Papanicolaou smear completed Quin jeffrey MA [facility] 03/05/2019 14:38:34 Oral surgery procedure completed Roxy Gupta MA [facility] 07/10/2022 13:07:19 Imaging Results None recorded. Procedure Notes None recorded. Medical Equipment None Reported. Allergies Allergen ID Allergen Name Allergen Category Reaction Reaction Severity Criticality Documentation Date Start Date Code Code System Note Provider Name and Address Organization Details Recorded Time 99684 hepatitis B surface antigen vaccine medicatio n itching Not available Not available 03/16/2022 25673 2 RxNorm BELKIS Colunga [facility] 2 13:59:27 Medications Name Sig Start Date Stop Date Status Note LastModified by Organization Details LastModified Time acetamino phen/code ine 300-15 mg tabs active Not Available Not Available Not Available loratadin e 10 mg tabs active Not Available Not Available Not Available vitamin d 55654 unit caps active Not Available Not Available No t Available vitamin d 50 mcg (1999 ut) 01/23 completed Not Available Not Available Not Available vitamin d 2000 unit tabs 04/09 completed Not Available Not Available Not Available selenium sulfide 2.5 % lotn active Not Available Not Available Not Available oxycodone /acetamin ophen 5-325 mg tabs active Not Available Not Available Not Available docqlace 100 mg caps active Not Available Not Available Not Available vitamin d3 2,000 unit tab 1 Tablet daily 02/07 completed Not Available Not Available Not Available d3 50 mcg (1999) tabs 09/26 completed Not Available Not Available Not Available warfarin sodium 2.5 mg tabs active Not Available Not Available Not Available bupropion hcl xl 300 mg tb24 active Not Available Not Available Not Available complera 200-25-30 0 mg tabs active Not Available Not Available No t Available bupropion hcl xl 150 mg tb24 active Not Available Not Available Not Available simvastat in 20 mg tabs active Not Available Not Available Not Available trazodone hcl 100 mg tabs active Not Available Not Available Not Available diazepam 5 mg tabs active Not Available Not Available No t Available citalopra m hydrobrom virgil 20 mg tabs active Not Available Not Available Not Available nasonex 50 mcg/act susp 11/22 completed Not Available Not Available Not Available lidocaine 5 % oint active Not Available Not Available Not Available vitamin d3 2,000 unit softg 07/10 completed Not Available Not Available Not Available vitamin d3 50 mcg (1999) 02/21 completed Not Available Not Available Not Available warfarin sodium 7.5 mg tabs active Not Available Not Available Not Available proair hfa 108 (90 base) mcg/act aers active Not Available Not Available Not Available cyclobenz aprine 10 mg tablet TAKE 1 TABLET BY MOUTH 3 TIMES A DAY FOR 5 DAYS active Not Available Not Available No t Available buspirone 5 mg tablet Take 1 tablet every day by oral route for 30 days. 05/21 completed Not Available Not Available Not Available Percocet 7.5 mg-325 mg tablet Take 1 tablet every 6 hours by oral route for 10 days. 05/21 completed Not Available Not Available Not Available venlafaxi ne ER 37.5 mg capsule,e xtended release 24 hr Take 1 capsule every day by oral route for 7 days. 02/03 completed Not Available Not Available Not Available prednison e 10 mg tablet 5 tabs daily for 4 days, then 4 tabs daily for 4 days, then 3 tabs daily for 4 days, then 2 tabs daily for 4 days then 1 tab daily for 4 days. 2024 active Not Available Not Available Not Avai lable venlafaxi ne ER 75 mg capsule,e xtended release 24 hr TAKE 1 CAPSULE BY MOUTH ONCE DAILY 05/21 completed Not Available Not Available Not Available atorvasta tin 20 mg tablet TAKE ONE TABLET BY MOUTH ONCE DAILY AT BEDTIME active Not Available Not Available No t Available venlafaxi ne 75 mg tablet 03/18 completed Not Available Not Available Not Available clindamyc in HCl 300 mg capsule TAKE 1 CAPSULE BY MOUTH EVERY 6 HOURS UNTIL GONE 07/10 completed Not Available Not Available Not Available albuterol sulfate 2.5 mg/3 mL (0.083 %) solution for nebulizat ion Inhale 3 mL 3 times a day by nebuliza tion route as needed. 03/21 completed Not Available Not Available Not Available citalopra m 40 mg tablet 03/18 completed Not Available Not Available Not Available triamcino lone acetonide 0.5 % topical cream Apply 1 applicat ion twice a day by topical route as needed. 04/02 completed Not Available Not Available Not Available cetirizin e 10 mg tablet TAKE ONE TABLET BY MOUTH ONCE DAILY active Not Available Not Available No t Available ibuprofen 800 mg tablet Take by oral route for 10 days. 07/10 completed Not Available Not Available Not Available nicotine (polacril ex) 2 mg gum EVERY 1-2 HRS 2011 completed RECORDED 08/08/19 12 3:31PM BY RUTHANN SADLER MD, MEDICATI ON AUTO-EVER CTIVATIO N;MAX OF 16 PER DAY Not Available Not Available Not Available hydrocodo ne 5 mg-acetam inophen 325 mg tablet Take 1 tablet 3 times a day by oral route as needed for 5 days. 12/31 completed Not Available Not Available Not Available warfarin 7.5 mg tablet 1 daily or as directed by coumadin nurse 04/20 completed Not Available Not Available Not Available meloxicam 15 mg tablet TAKE 1 TABLET BY MOUTH EVERY DAY active Not Available Not Available No t Available naltrexon e 50 mg tablet TAKE ONE TABLET BY MOUTH ONCE DAILY 04/02 completed Not Available Not Available Not Available Medrol (Jarrod) 4 mg tablets in a dose pack Take 1 dose pk every day by oral route as directed for 6 days. 04/26 completed Not Available Not Available Not Available prednison e 20 mg tablet TAKE 2 TABLETS BY MOUTH EVERY DAY FOR 5 DAYS 05/21 completed Not Available Not Available Not Available Tubersol 5 tub. unit/0.1 mL intraderm al injection solution Inject 1 mL by intrader mal route. 05/14 completed Not Available Not Available Not Available Doc-Q-Lac e 100 mg capsule active Not Available Not Available Not Available flunisoli de 250 mcg/actua tion aerosol inhaler FOUR TIMES DAILY 2007 active RECORDED 10/08/19 08 2:05PM BY RUTHANN SADLER MD, ANNOTATI ON/ADDEN DUM; Not Available Not Available Not Available Milk of Magnesia 400 mg/5 mL oral suspensio n active Not Available Not Available Not Available Zithromax Z-Jarrod 250 mg tablet DAILY 03/18 completed RECORDED 03/21/20 11 1:21PM BY QUOC LUX PA-C, MEDICATI ON AUTO-EVER CTIVATIO N;TAKE 2 TABS BY MOUTH ON DAY 1, THEN 1 TAB DAILY ON DAYS 2-5. Not Available Not Available Not Available venlafaxi ne ER 150 mg capsule,e xtended release 24 hr Take 1 capsule every day by oral route for 90 days. 05/21 completed Not Available Not Available Not Available warfarin 2.5 mg tablet 1daily 04/20 completed Not Available Not Available Not Available acetamino phen 300 mg-codein e 15 mg tablet Take 1 tablet twice a day by oral route as needed for 30 days. 2014 active Not Available Not Available Not Avai lable acetamino phen 300 mg-codein e 30 mg tablet TWO TIMES DAILY, NEEDED 02/28 completed Not Available Not Available Not Available chlorthal idone 25 mg tablet Take 1 tablet every day by oral route for 90 days. 03/18 completed Not Available Not Available Not Available amlodipin e 5 mg tablet TAKE ONE TABLET BY MOUTH ONCE DAILY 02/03 completed Not Available Not Available Not Available sulfameth oxazole 800 mg-trimet hoprim 160 mg tablet TWO TIMES DAILY 05/10 completed RECORDED 05/17/20 10 9:41AM BY QUOC LUX PA-C, MEDICATI ON AUTO-EVER CTIVATIO N; Not Available Not Available Not Available tramadol 50 mg tablet Take 1 tablet 3 times a day by oral route as needed for 7 days. 2024 active Not Available Not Available Not Avai lable triamcino lone acetonide 0.1 % topical cream APPLY A THIN LAYER TO THE AFFECTED AREA(S) BY TOPICAL ROUTE 2 TIMES PER DAY active Not Available Not Available No t Available oxycodone -acetamin ophen 5 mg-325 mg tablet TAKE 1 TABLET BY MOUTH EVERY 4 HOURS NEEDED FOR PAIN. DO NOT OPERATE HEAVY MACHINER Y UNDER THE INFLUENC E 07/10 completed Not Available Not Available Not Available Fluticaso ne Propionat e (Inhal) 50 mcg/BLIST inhl powd EACH NOSTRIL DAILY 07/20 completed RECORDED 07/20/19 12 11:05AM BY MERY RHODES I, MEDICATI ON AUTO-EVER CTIVATIO N; Not Available Not Available Not Available citalopra m 20 mg tablet TAKE 1 TABLET BY MOUTH EVERY DAY 02/28 completed Not Available Not Available Not Available gentamici n 0.3 % eye drops QID 06/14 completed RECORDED 06/14/19 12 8:39AM BY ADAIR Matt MD, MEDICATI ON AUTO-EVER CTIVATIO N; Not Available Not Available Not Available trazodone 100 mg tablet AT BEDTIME 04/09 completed Not Available Not Available Not Available amlodipin e 10 mg tablet take 1 tablet daily active Not Available Not Available No t Available benzonata te 100 mg capsule Take 1 capsule 3 times a day by oral route as needed for 10 days. 05/21 completed Not Available Not Available Not Available simvastat in 20 mg tablet TAKE 1 TABLET BY MOUTH ONCE DAILY 08/09 completed Will change to atorvast atin because there are too many interact ions with simvasta tin. Not Available Not Available Not Available mirtazapi ne 30 mg tablet EVERY EVENING BEFORE BEDTIME 11/07 completed RECORDED 11/08/19 12 3:00PM BY AZUCENA MONTEIRO ON/DAVID DUM; Not Available Not Available Not Available Coumadin 2 mg tablet QD PER INR RESULTS 2011 active RECORDED 01/18/20 12 3:02PM BY JOSUE BACON MD, PRESCRIP TION REFILL; Not Available Not Available Not Available buspirone 10 mg tablet Take 1 tablet every day by oral route for 30 days. active Not Available Not Available No t Available prednison e 50 mg tablet DAILY 05/28 completed Not Available Not Available Not Available lidocaine 5 % topical patch 02/28 completed Not Available Not Available Not Available polymyxin B sulfate 10,000 unit-trim ethoprim 1 mg/mL eye drops QID 06/06 completed RECORDED 06/07/20 11 11:07AM BY CASSIE MONTEIRO ON AUTO-EVER CTIVATIO N; Not Available Not Available Not Available warfarin 5 mg tablet Take 1 tablet every day by oral route. 04/20 completed Not Available Not Available Not Available Advair Diskus 250 mcg-50 mcg/dose powder for inhalatio n TWO TIMES DAILY 06/26 completed RECORDED 06/26/19 12 9:25AM BY RUTHANN SADLER MD, AZUCENA ON/DAVID DUM; Not Available Not Available Not Available Acular 0.5 % eye drops FOUR TIMES DAILY 06/26 completed RECORDED 06/26/19 12 9:25AM BY RUTHANN SADLER MD, AZUCENA ON/DAVID DUM; Not Available Not Available Not Available gabapenti n 300 mg capsule TAKE ONE CAPSULE BY MOUTH EVERY NIGHT AT BEDTIME 03/05 completed Not Available Not Available Not Available diclofena c sodium 75 mg tablet,de layed release TAKE ONE TABLET BY MOUTH TWO TIMES A DAY NEEDED active Not Available Not Available No t Available codeine 10 mg-guaife nesin 100 mg/5 mL oral liquid 10 ML EVERY 6 HOURS NEEDED FOR COUGH 11/22 completed Not Available Not Available Not Available Aspirin EC 325 mg tablet,de layed release DAILY 06/26 completed RECORDED 06/26/19 12 9:25AM BY RUTHANN SADLER MD, ANNOTATI ON/ADDEN DUM; Not Available Not Available Not Available gabapenti n 100 mg capsule active Not Available Not Available Not Available ergocalci ferol (vitamin D2) 1,250 mcg (50,000 unit) capsule 11/22 completed Not Available Not Available Not Available lorazepam 1 mg tablet Take 1 tablet twice a day by oral route as directed for 10 days. 05/31 completed Not Available Not Available Not Available selenium sulfide 2.5 % shampoo APPLY TO THE AFFECTED AREA(S) BY TOPICAL ROUTE DAILY for 7 days. Apply and leave on for 10 minutes. 2014 active Not Available Not Available Not Avai lable Nasonex 50 mcg/actua tion Perdido Perdido 2 sprays every day by intranas al route as directed for 90 days. 05/28 completed Not Available Not Available Not Available zolpidem 10 mg tablet TAKE ONE TABLET BY MOUTH AT BEDTIME active Not Available Not Available No t Available ketoconaz ole 2 % topical cream APPLY TOPICALL Y TWO TIMES A DAY FOR TINEA VERSICOL OR/SKIN COLOR CHANGES active Not Available Not Available No t Available piroxicam 20 mg capsule DAILY WITH FOOD 01/14 completed RECORDED 01/17/20 10 9:48AM BY QUIN RODRIGUEZ MA, MEDICATI ON AUTO-EVER CTIVATIO N; Not Available Not Available Not Available fluticaso ne propionat e 50 mcg/actua tion nasal spray,deidre pension USE 1 SPRAY IN EACH NOSTRIL DAILY active Not Available Not Available No t Available doxycycli ne hyclate 100 mg tablet 02/17 completed Not Available Not Available Not Available loratadin e 10 mg tablet TAKE 1 TABLET BY MOUTH ONCE DAILY 06/12 completed Not Available Not Available Not Available amoxicill in 875 mg-potass ium clavulana te 125 mg tablet TWO TIMES DAILY 11/05 completed RECORDED 11/18/19 13 7:51AM BY DONAVAN ABREU MA, MEDICATI ON AUTO-EVER CTIVATIO N; Not Available Not Available Not Available nicotine 7 mg/24 hr daily transderm al patch active Not Available Not Available Not Available Ventolin HFA 90 mcg/actua tion aerosol inhaler Inhale 2 puffs every 4 hours by inhalati on route as needed for 30 days. 2024 active Not Available Not Available Not Avai lable buspirone 15 mg tablet 02/03 completed Not Available Not Available Not Available oxycodone 5 mg tablet active Not Available Not Available Not Available hydroxyzi ne pamoate 25 mg capsule active Not Available Not Available Not Available Mouthwash Gargle 3-5 TIMES DAILY, NEEDED 07/11 completed RECORDED 07/21/19 11 1:04PM BY PRANEETH SKY, MEDICATI ON AUTO-EVER CTIVATIO N;1/3 VISCOUS LIDOCAIN E, 1/3 BENADRYL , 1/3 MAALOX. SWISH AND SPIT. Not Available Not Available Not Available albuterol (refill) 90 mcg/actua tion aerosol inhaler FOUR TIMES DAILY 2013 active RECORDED 07/22/19 14 4:22PM BY RUTHANN SADLER MD, REFILL REQUEST; Not Available Not Available Not Available bupropion HCl SR 200 mg tablet,12 hr sustained -release Take 1 tablet every day by oral route for 30 days. 02/03 completed Not Available Not Available Not Available codeine-g uaifenesi n oral syrup Q 4 HOURS PRN 08/05 completed RECORDED 08/13/19 14 9:34AM BY RUTHANN SADLER MD, MEDICATI ON AUTO-EVER CTIVATIO N; Not Available Not Available Not Available bupropion HCl XL 300 mg 24 hr tablet, extended release TAKE ONE TABLET BY MOUTH ONCE DAILY active Not Available Not Available No t Available bupropion HCl XL 150 mg 24 hr tablet, extended release TAKE ONE TABLET BY MOUTH ONCE DAILY 12/12 completed Not Available Not Available Not Available Flovent HFA 220 mcg/actua tion aerosol inhaler 11/22 completed Not Available Not Available Not Available Asmanex Twisthale r 220 mcg/actua tion(60 doses) breath activated inhalr TWO TIMES DAILY 11/11 completed RECORDED 11/12/19 10 1:36PM BY AZUCENA MONTEIRO ON/ADDEN DUM; Not Available Not Available Not Available chlorhexi dine gluconate 0.12 % mouthwash USE MOUTHWAS H 3 TO 4 TIMES A DAY. DO NOT SWALLOW. 05/21 completed Not Available Not Available Not Available Nasonex 2 1s. 03/18 completed Not Available Not Available Not Available Claritin 10 mg. 10/13 completed Not Available Not Available Not Available Ultram FOUR TIMES DAILY, NEEDED 08/17 completed RECORDED 09/15/19 10 11:32AM BY JOSUE BACON MD, MEDICATI ON AUTO-EVER CTIVATIO N; Not Available Not Available Not Available peak flow meter DAILY 06/07 completed RECORDED 06/07/20 11 2:52PM BY AZUCENA MONTEIRO ON/ADDDERECK DUM;DX=A STHMA Not Available Not Available Not Available varenicli ne tartrate 1 mg tablet 2 TIMES A DAY TO HELP QUIT SMOKING 11/11 completed RECORDED 11/12/19 10 1:36PM BY AZUCENA MONTEIRO ON/ADDEN DUM; Not Available Not Available Not Available Chantix Starting Month Jarrod 0.5 mg (11)-1 mg (42) tablets in dose pack TWO TIMES DAILY 12/14 completed RECORDED 12/16/19 10 10:15AM BY RUTHANN SADLER MD, MEDICATI ON AUTO-EVER CTIVATIO N; Not Available Not Available Not Available efavirenz 600 mg-emtric itabine 200 mg-tenofo vir disoprox 300 mg tablet DAILY 11/07 completed RECORDED 11/08/19 12 3:00PM BY AZUCENA MONTEIRO ON/ADDEN DUM; Not Available Not Available Not Available Ultram ER 200 mg tablet,ex tended release DAILY 01/21 completed RECORDED 01/22/20 09 7:25AM BY RUTHANN SADLER MD, MEDICATI ON AUTO-EVER CTIVATIO N; Not Available Not Available Not Available Symbicort 160 mcg-4.5 mcg/actua tion HFA aerosol inhaler INHALE 2 PUFFS BY MOUTH TWO TIMES A DAY 2024 active Not Available Not Available Not Avai lable Symbicort 80 mcg-4.5 mcg/actua tion HFA aerosol inhaler INHALE 2 PUFFS INTO THE LUNGS TWO TIMES A DAY 02/03 completed Not Available Not Available Not Available Golytely 236 gram-22.7 4 gram-6.74 gram-5.86 gram oral solution 11/02 completed Not Available Not Available Not Available cholecalc iferol (vitamin D3) 50 mcg (2,000 unit) capsule TAKE ONE CAPSULE BY MOUTH ONCE DAILY 02/17 completed *DO NOT TAKE IN THE SUMMER MONTHS*0 02/01/23 waiting for pt to get Vit D level checked Not Available Not Available Not Available cholecalc iferol (vitamin D3) 50 mcg (2,000 unit) tablet TAKE ONE TABLET BY MOUTH ONCE DAILY 07/10 completed Not Available Not Available Not Available Complera 200 mg-25 mg-300 mg tablet DAILY 02/28 completed Not Available Not Available Not Available lidocaine 5 % topical ointment 02/28 completed Not Available Not Available Not Available Vitamin D3 100 mcg (4,000 unit) capsule Take 1 capsule every day by oral route. 09/26 completed Not Available Not Available Not Available Forfivo XL 450 mg 24 hr tablet, extended release TAKE ONE TABLET BY MOUTH ONCE DAILY 03/18 completed Not Available Not Available Not Available Eliquis 5 mg tablet TAKE 1 TABLET BY MOUTH TWO TIMES A DAY active Not Available Not Available No t Available Eliquis 2.5 mg tablet TAKE 1 TABLET BY MOUTH TWICE DAILY FOR 5 DAYS 04/19 completed Not Available Not Available Not Available selenium sulfide 2.5 % lotion APPLY TO WET SCALP BY TOPICAL ROUTE ONCE WEEKLY WORK INTO A FULL LATHER, LEAVE ON SCALP FOR 2-3 MINUTES, RINSE THOROUGH LY, AND THEN PAT DRY 09/26 completed Not Available Not Available Not Available Odefsey 200 mg-25 mg-25 mg tablet Take 1 1 by oral route. active Not Available Not Available No t Available fluticaso ne 113 mcg-salme terol 14 mcg/actua tion breath activated powdr Inhale 1 puff twice a day by inhalati on route. 12/31 completed refill request Not Available Not Available Not Available Flucelvax Quad 60 mcg (15 mcg x 4)/0.5 mL intramusc ular susp ADM 0.5ML IM UTD 11/30 completed Not Available Not Available Not Available Egrifta SV 2 mg subcutane ous solution Inject 1.4 mg every day by subcutan eous route for 30 days, for lipodyst rophy. 02/03 completed Not Available Not Available Not Available Paxlovid 300 mg (150 mg x 2)-100 mg tablets in a dose pack TAKE 3 TABLET BY MOUTH TWICE DAILY 05/21 completed Not Available Not Available Not Available Vitals Date Recorded Body height Body mass index (BMI) Body weight Heart rate Oxygen saturation Body temperature Systolic And Diastolic Provider Name and Address Organization Details Last Updated DateTime 5 180.34 cm 32.2 kg/m2 585031. 84 g 86 /min 100 % 97.8 [degF] 130/80 mm[Hg] Glenny Mann MA [facility] 5 13:18:35 Social History Question Answer Notes LastModified by Organizat ion Details LastModified Time Tobacco Smoking Status Current Every Day Smoker Not Available [employer] 04/12/2020 03:36:34 Do You Have An Advance Directive? Yes [id number] Information not available 04/12/2020 Is Blood Transfusion Acceptable In An Emergency? Yes [id number] Information not available 04/12/2020 What Is Your Level Of Caffeine Consumption? Heavy 2 Pots Of Coffee Daily (five Large Cups Of Coffee); Occasional Soda Information not available 05/21/2023 How Much Tobacco Do You Chew? None [id number] Information not available 04/12/2020 What Type Of Diet Are You Following? REGULAR Eating More Cabbage [id number] Information not available 04/12/2020 Which Illicit Or Recreational Drugs Have You Used? Marijuana, Crack Quit Crack Cocaine On October 07, 2018 [id number] Information not available 04/12/2020 Are There Any Guns Present In Your Home? No [id number] Information not available 04/12/2020 Live Alone Or With Others? With Others Mother (Stefany) lara Information not available 04/09/2016 Do You Take Precautions To Prevent Distracted Driving? Yes Information not available 04/07/2015 How Often Do You Need To Have Someone Help You When You Read Instructions, Pamphlets, Or Other Written Material From Your Doctor Or Pharmacy? Never Information not available 04/07/2015 Have You Served In The ? No [email or web address] Information not available 04/09/2016 Have You Or Anyone In Your Household Had Any Of The Following Symptoms In The Last 14 Days: Sore Throat, Cough, Chills, Body Aches For Unknown Reasons, Shortness Of Breath For Unknown Reasons, Loss Of Smell, Loss Of Taste, Fever At Or Greater Than 100 Degrees Fahrenheit? No Information not available 12/23/2019 Are You Or Anyone In Your Household A Health Care Provider Or Emergency Responder? No Information not available 12/23/2019 To The Best Of Your Knowledge Have You Been In Close Proximity To Any Individual Who Tested Positive For COVID-19? No Information not available 12/23/2019 *AWV ONLY* Are You Presently Prescribed Opioid Medication By PCP Or Specialist? If YES -Provider Assess The Benefit For Other, Non-opioid Pain Therapies Instead, Even If The Patient Does Not Have OUD But Is Possibly At Risk. No Information not available 06/28/2021 Have You Recently Traveled To A COVID-19 High Risk Area Or Gathering In The Last 10 Days? No [email or web address] Information not available 12/27/2020 What Was The Date Of Your Most Recent Tobacco Screening? 09/29/2024 [email or web address] Information not available 09/29/2024 How Many Children Do You Have? 0 [id number] Information not available 04/12/2020 What Is Your Current Pack Years? 30ormorepa [email or web address] Information not available 06/28/2021 Do You Use Protection During Sex? Usually [id number] Information not available 04/12/2020 Seat Belts Used Routinely Yes Information not available 04/07/2015 Are You Sexually Active? Yes [id number] Information not available 04/12/2020 Smoke Alarm In Home Yes Information not available 04/07/2015 At What Age Did You Start Smoking Tobacco? 13 [id number] Information not available 04/12/2020 Are You Passively Exposed To Smoke? Yes [email or web address] Information not available 04/09/2016 How Much Tobacco Do You Smoke? 0.5 PPD [id number] Information not available 04/12/2020 General Stress Level Medium [email or web address] Information not available 03/23/2014 Do You Use Sunscreen Routinely? No [id number] Information not available 04/12/2020 How Many Years Have You Smoked Tobacco? 41 [id number] Information not available 04/12/2020 Sex: Unknown Functional Status Question Answer Note LastModified by Organizat ion Details LastModified Time Do you use any illicit or recreational drugs? No Information not available 06/28/2021 Do you or have you ever used any other forms of tobacco or nicotine? No Information not available 06/28/2021 What is your level of alcohol consumption? None quit October 07, 2018 [id number] Information not available 04/12/2020 Do you or have you ever used smokeless tobacco? Never used smokeless tobacco [id number] Information not available 04/12/2020 Are you currently employed? No [id number] Information not available 04/12/2020 Are you able to walk independently without assistance or assistive devices? [email or web address] Information not available 02/07/2021 Are you able to care for yourself independently? Yes [id number] Information not available 04/12/2020 What is your occupation? disabled Information not available 03/05/2019 Do you or have you ever used e-cigarettes or vape? Never used electronic cigarettes [id number] Information not available 04/12/2020 What is your exercise level? Occasional walking and using stairs [id number] Information not available 04/12/2020 Mental Status None recorded. Family History Relationship Description Onset Age of this Age Resolved Age Notes LastModified by Organization Details LastModified Time Mother Alzheimer's disease [email or web address] Not available 13:11:23 Mother Diabetes mellitus [email or web address] Not available 13:11:23 Mother Neuropathy due to diabetes mellitus [email or web address] s Not available 03/05/2019 14:49:21 Maternal Grandmother Diabetes mellitus [email or web address] Not available 13:11:23 Father Dementia due to Alzheimer's disease 75 [email or web address] Not available 03/12 14:14:59 Sister Fibromyalgia 48 [email or web address] to s Not available 03/05/2019 14:49:41 Notes:3 brothers and 2 siste rs (1 brother as an infant) Medical History Condition Response Coronary Artery Disease N Other N Gout N Kidney Stones N Blood Diseases N Hyperthyroidism N Breast Cancer N mrsa exposure N COPD N Depression Y Lung Disease N Hypothyroidism N Defects or Inherited Disease N Developmental or Behavioral Disorders N Breast Problem N Anesthesia Complications N Headaches/Migraines N Varicose Veins N Anxiety Disorder N Muscle, Joint, or Bone Problems N Obesity N Vision or Eye Problems N Arthritis N Head Injury/Concussion N Polyps N Infertility N Mental Disorder N Congenital Anomalies N Acid Reflux (GERD) N Cancer N Stroke N ADHD N Endometriosis N High Cholesterol Y Liver Disease N Fibromyalgia N Headaches N Kidney Disease N Heart Problems N Ear or Hearing Problems N Hospitalizations N Thyroid Problems N GI Problems N Developmental Delay N Acne N Skin Problems N Eating Disorder N Anemia N Constipation N Bladder Problems N Mental Illness N Ovarian Cancer N Diabetes N Bedwetting N Blood Transfusions N Seizures/Epilepsy N Heart Problems/Murmur N Tuberculosis N AIDS/HIV Y Congestive Heart Failure (CHF) N Eczema N Diverticulitis N Abuse/Domestic Violence N Asthma Y Allergies N Reflux/GERD N Hepatitis N Heart Disease N Pulmonary Embolism N Hypertension N Osteoporosis N Chicken Pox N Autism Spectrum Disorder (ASD) N Immunizations Vaccine Type Date Status Note Provider Nam e and Address Organization Details Recorded Time Influenza, MDCK, quadrivalent, preservative 9 completed BELKIS Samayoa [facility] 02/21/2022 11:36:55 pneumococcal polysaccharide PPV23 9 completed BELKIS Samayoa [facility] - [facility] 02/21/2022 11:36:54 meningococcal ACWY, unspecified formulation 7 completed BELKIS Samayoa, [facility] 02/21/2022 11:36:54 influenza, whole 2 completed BELKIS Samayoa, [facility] 02/21/2022 11:36:54 Hep A-Hep B 3 completed BELKIS Samayoa, [facility] 02/21/2022 11:36:54 Influenza, split virus, trivalent, preservative 3 completed BELKIS Samayoa, [facility] 02/21/2022 11:36:54 pneumococcal [facility]accharide PPV[facility] 11:36:55 Hep A-Hep B 3 completed BELKIS Samayoa, [facility] 02/21/2022 11:36:55 Hep A-Hep B 4 completed BELKIS Samayoa, [facility] 02/21/2022 11:36:55 influenza, whole 9 completed Mery warren [facility] 09/22/2019 09:57:03 Hep A, adult 2 completed BELKIS Samayoa, [facility] 02/21/2022 11:36:55 Hep A, adult 2 completed BELKIS Samayoa, [facility] 02/21/2022 11:36:55 Influenza, split virus, trivalent, preservative 8 completed BELKIS Samayoa, [facility] 02/21/2022 11:36:55 Hep B, adult 9 completed BELKIS Samayoa, [facility] 02/21/2022 11:36:55 Tdap 2 [facility] 11:36:55 Influenza, split virus, trivalent, preservative 5 [facility] 11:36:55 pneumococcal conjugate PCV 7 3 [facility] 11:36:55 Hep B, adult 9 [facility] 09[facility]57:04 COVID-19, mRNA, LNP-S, PF, 30 mcg/0.3 mL dose 1 [facility] 16:16:34 Influenza, split virus, trivalent, preservative 1 [facility] 16:16:34 zoster recombinant 1 [facility] 16:16:34 COVID-19, mRNA, LNP-S, PF, 30 mcg/0.3 mL dose 1 [facility] 16:16:34 COVID-19, mRNA, LNP-S, PF, 30 mcg/0.3 mL dose 1 [facility] 16:16:34 Influenza, MDCK, quadrivalent, preservative 9 [facility] 16:16:34 pneumococcal polysaccharide PPV23 2 completed Kelly Cordova [facility] 11/05/2019 13:52:46 Hep B, adult 6 completed Kelly Money null, [facility] 11/05/2019 13:52:46 Influenza, split virus, trivalent, preservative 7 completed Kelly Money null, [facility] 11/05/2019 13:52:46 Tdap 8 [facility] 13:52:46 Influenza, split virus, trivalent, preservative 8 completed Kelly Money null, [facility] 11/05/2019 13:52:46 Influenza, split virus, trivalent, preservative 9 completed Kelly Money null, [facility] 11/05/2019 13:52:46 Novel [id number], all formulations 0 completed Kelly Money [facility] 11/05/2019 13:52:46 Influenza, split virus, trivalent, preservative 0 completed Kelly Money null, [facility] 11/05/2019 13:52:46 Influenza, split virus, trivalent, preservative 1 completed Kelly Money null, [facility] 11/05/2019 13:52:46 Influenza, split virus, trivalent, preservative 3 [facility] 13:52:46 COVID-19, mRNA, LNP-S, PF, 10 mcg/0.2 mL dose, jocelyn-sucrose 1 completed Lisha Goff MA null, [facility] 02/21/2022 11:36:54 COVID-19, mRNA, LNP-S, PF, 30 mcg/0.3 mL dose, jocelyn-sucrose 2 completed Lisha Goff MA null, [facility] 02/21/2022 11:36:54 Influenza, split virus, quadrivalent, PF 8 completed BELKIS Samayoa, [facility] 02/21/2022 11:36:54 Td (adult), 2 Lf tetanus toxoid, preservative free, adsorbed 8 completed BELKIS Samayoa, [facility] 02/21/2022 11:36:55 Influenza, split virus, quadrivalent, PF [facility] 11:36:55 Influenza, split virus, quadrivalent, PF 6 completed BELKIS Samayoa, [facility] 02/21/2022 11:36:55 Influenza, split virus, quadrivalent, PF 5 [facility] 11:36:55 zoster recombinant 2 [facility] 11:36:55 Influenza, split virus, quadrivalent, PF 0 completed BELKIS Samayoa, [facility] 02/21/2022 11:36:55 Influenza, split virus, trivalent, preservative 1 [facility] 11:36:55 Influenza, split virus, quadrivalent, PF 5 completed BELKIS Alvarez, [facility] 03/14/2022 13:27:19 Influenza, split virus, quadrivalent, PF 2 completed BELKIS Catalan, [facility] 03/16/2022 13:58:37 Vaccinia, smallpox monkeypox vaccine live, PF, SQ or ID injection 2 completed BELKIS Alvarez, [facility] 07/10/2022 12:57:08 Vaccinia, smallpox monkeypox vaccine live, PF, SQ or ID injection 2 completed BELKIS Alvarez, [facility] 07/10/2022 12:57:08 Influenza, MDCK, quadrivalent, PF 3 completed BELKIS Cummings [facility] 05/21/2023 13:37:44 COVID-19, mRNA, LNP-S, PF, 50 mcg/0.5 mL 3 completed BELKIS Cummings, [facility] 05/21/2023 13:37:44 COVID-19, mRNA, LNP-S, PF, 50 mcg/0.5 mL 3 completed BELKIS Cummings, [facility] 05/21/2023 13:37:44 Pneumococcal conjugate PCV20, polysaccharide [id number] conjugate, adjuvant, PF 4 completed Not Available [facility] 05/04/2025 13:36:15 COVID-19, mRNA, LNP-S, PF, jocelyn-sucrose, 30 mcg/0.3 mL 4 completed Not Available [facility] 05/04/2025 13:36:15 Influenza, MDCK, trivalent, PF 4 completed Not Available [facility] 05/04/2025 13:36:15 Past Encounters Encounter ID Performer Location Encounter Start Date Encounter Closed Date Diagnosis/Indication Diagnosis SNOMED-CT Code Diagnosis ICD10 Code Diagnosis IMO Codes Diagnosis Note [id number] Ruthann Trejo MD Main Office [address] [facility] [address] [facility] [place] [id number] 04/13/2025 13:13:51 04/13/2025 14:20:58 Radicular pain 65298978 M54.10 [id number] He will hold his meloxicam while taking the medrol dose pack. Disorder o f left sciatic nerve 8082323743 24502 M54.32 [id number] Health Concerns Section Related Observation LastModified by Organization Detai ls LastModified Time None Recorded Concern Status LastModified by Organization Details LastModified Time None Recorded Payers Encounter Date Sequence Insurance Name Policy Number Policy Kebede Covered Member ID Kebede Member ID Guarantor Name 04/13/2025 1 [place]: [facility] Toby Brasher [id number] Toby Brasher Notes Date Note Type Note Provider Name and Address Organization Details Recorded Time 04/13/2025 text/html ROS as noted in the HPI He has been having low back for about 8 weeks. The pain was initially across his lower back but has recently started going into his left buttocks and down his left leg. He has a difficult time finding a comfortable position and has been having trouble sleeping. He has been doing PT w/o much help. He was taking meloxicam and cyclobenzaprine which was helping. Ruthann Trejo MD [address] [address], [place], [id number], [facility] 04/13/2025 20:32:39
--- OUTSIDE RECORDS SUMMARY | 2025-05-28 15:06 | XMS_ITS | Continuity of Care Document ---
Author Organization [facility], Main Office Address [address] [place] [address] Care Team Providers Care Scientific Publications Editor Name Role Phone RUTHANN TREJO Primary Care Provider SHAILA HERBERT Referring Provider [facility] Dentist RADHA MCCABE Dentist [phone] [facility] [place] Infectious Disease RADHA FONTANA Hand Surgeon MIRIAM COLLADO Account Officer MAKI FONTANA Neurosurgeon LYNSEY RUBY General Surgeon [facility] ([facility]) Orthopedic Surgeon TED MARTINI Inspecting And Testing Lead Hand ARMOND MUÑOZ Kelp Or Seagrass Gatherer Assessment No assessment recorded. Plan of Treatment Reminders Order Date Submit Date Provider Last Modified By Organization Details Last Modified Time Details Appointments FOLLOW UP 30MIN 2025 01:00P M Ruthann matt MD Not available Not available Not available PE EST 2025 01:00P M Ruthann matt MD Not available Not available Not available Lab None recorded. Referral None recorded. Procedures None recorded. Surgeries None recorded. Imaging None recorded. Medication Orders prednison e 10 mg tablet 2024 025 [facility], [address], [place], [address], 05/04/2025 15:03:45 Patient TargetsNo targets recorded. Patient InstructionsNo instructions recorded. Reason for Referral None Reported. Results Created Date Observation Date Name Description [...] of lumbar verteb ral fractu re. WSN: [id number] Orderi ng Physic negro: Ruthann Vazquez Dictat ed By: Rosalba Wagner ra, MD Dictat ed Date/T erica: 11:55 a Review ed By: Rosalba Wagner ra, MD Signed By: Rosalba Wagner ra, MD Signed Date/T erica: 11:55 am Transc ribed By: RONNIE Transc ribed Date/T erica: 11:51 am Patien t Class: Outpat [facility] (Outpt Imaging) [address], [place], [address], 04/16/2025 12:14:44 05/27/2005/25/2025 MRI, lumba r spine , w/o contr [...] verteb ral bodies . ALIGNM ENT, VERTEB NAS, MARROW , AND DISCS: Subtle shanti listhe [...] L4 nerve root at this level. WSN: [id number] Orderi ng Physic negro: Ruthann Vazquez ed By: Malini Crenshaw MD Dictat ed Date/T erica: 2:50 pm Review ed By: Malini Crenshaw MD Signed By: Malini Crenshaw MD Signed Date/T erica: 2:50 pm Transc ribed By: TYLERB Transc ribed Date/T erica: 2:43 pm Patien t Class: Outpat ient INTERFACE [facility] (Outpt Imaging) [address] [place], [address], 05/27/2025 14:55:30 Result Notes None recorded. Problems Name Problem SNOMED Code Status Onset Date Resolution Date Notes Provider Name and Address Organization Details Recorded Time Fracture of two ribs 88648659 Active Kelly Modbook [facility] 0 13:52:52 Pityrias is versicol or 01366426 Active Kelly Modbook [facility] 0 13:52:52 Hearing loss 40385389 Active [facility] 0 13:52:52 Human immunode ficiency virus enteropa thy 969300237 Active Mery Gao [facility] 0 09:57:02 Asymptom atic human immunode ficiency virus infectio n 07538814 Active 1990 Kelly Modbook [facility] 0 13:52:52 Administ ration of bacteria l and viral vaccine Completed 200701/14/2014 RECORDED 02/17/20 08 3:08PM BY KAVYA GRANADOS, OFFICE VISIT Ruthann matt MD [address], [place], [address], [facility] 6 19:06:01 Administ ration of bacteria l and viral vaccine Completed 200701/15/2014 RECORDED 02/17/20 08 3:08PM BY KAVYA GRANADOS, OFFICE VISIT Ruthann matt MD [address], [place], [address], [facility] 6 19:06:01 Administ ration of bacteria l and viral vaccine Completed 200712/22/2013 RECORDED 02/17/20 08 3:08PM BY KAVYA GRANADOS, OFFICE VISIT Ruthann matt MD [address] [facility], [place], [address], [facility] 6 19:06:01 Eruption [id number] Completed 200801/14/2014 RECORDED 02/02/20 09 9:42AM BY AZUCENA COBB ON/ADDEN DUM Ruthann matt MD [address], [place], [address], [facility] 6 19:06:01 Eruption [id number] Completed 200801/15/2014 RECORDED 02/02/20 09 9:42AM BY AZUCENA COBB ON/ADDEN DUM Ruthann matt MD [address], [place], [address], [facility] 6 19:06:01 Eruption [id number] Completed 200812/22/2013 RECORDED 02/02/20 09 9:42AM BY AZUCENA COBB ON/ADDEN DUM Ruthann matt MD [address], [place], [address], [facility] 6 19:06:01 Influenz a vaccine needed [id number] 06 Completed 200901/14/2014 RECORDED 06/29/19 10 10:39AM BY RUTHANN SADLER MD, OFFICE VISIT Ruthann matt MD [address], [place], [address], [facility] 6 19:06:01 Influenz a vaccine needed 34859342482 06 Completed 200901/15/2014 RECORDED 06/29/19 10 10:39AM BY RUTHANN SADLER MD, OFFICE VISIT Ruthann matt MD [address], [place], [address], [facility] 6 19:06:01 Influenz a vaccine needed 62178334750 06 Completed 200912/22/2013 RECORDED 06/29/19 10 10:39AM BY RUTHANN SADLER MD, OFFICE VISIT Ruthann matt MD [address], [facility] [place], [address], [facility] 6 19:06:01 Allergic rhinitis 98979131 Completed 200901/14/2014 RECORDED 05/02/20 10 1:28PM BY PRANEETH SKY, ANNOTATI ON/ADDEN DUM Ruthann matt MD [address], [place], [address], [facility] 7 14:14:34 Allergic rhinitis 02870608 Completed 200901/15/2014 RECORDED 05/02/20 10 1:28PM BY PRANEETH SKY, ANNOTATI ON/ADDEN DUM Ruthann matt MD [address], [place], [address], [facility] 7 14:14:34 Allergic rhinitis 75366926 Completed 200912/22/2013 RECORDED 05/02/20 10 1:28PM BY PRANEETH SKY, ANNOTATI ON/ADDEN DUM Ruthann matt MD 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 Followed by Dr Modi. On lifelong Coumadin . Kelly Art null, [facility] 0 13:52:52 Abdomina l pain 64287056 Completed 201101/14/2014 IMPRESSI ON: X 10 DAYS, WITH FAILURE TO MOVE BOWELS. NO EFFECT WITH ENEMAS AND OTC LAXATIVE S. STAT ABDO XRAY APPEARS NEG. I HAVE CONCERN REGARDIN G HIS HIGH LEVEL OF DISCOMFO RT, LACK OF RESPONSE TO MULTIPLE ENEMAS AND OTC LAXATIVE S. DISCUSSE D OPTIONS, ELECTED TO SEEK IMMEDIAT E TX/W/U VIA ER AT [place] [facility] [place]. CALLED IN EXPECT.; RECORDED 01/10/20 12 10:20AM BY AZUCENA FULLER ON/DAVID matt MD [address], [place], [address], [facility] 6 19:06:01 Left upper quadrant pain 511598906 Completed 201101/14/2014 RECORDED 01/10/20 12 10:20AM BY AZUCENA FULLER/DAVID matt MD [address], [place], [address], [facility] 6 19:06:01 Chronic allergic conjunct ivitis 25182195 Completed 201101/14/2014 RECORDED 01/10/20 12 10:20AM BY AZUCENA FULLER/DAVID matt MD [address], [place], [address], [facility] 6 19:06:01 Acute asthma 079454699 Completed 201101/14/2014 IMPRESSI ON: MILD; RECORDED 01/10/20 12 10:20AM BY AZUCENA FULLER ON/DAVID matt MD [address], [place], [address], [facility] 6 19:06:01 Digestiv e symptom 633192259 Completed 201101/14/2014 RECORDED 01/10/20 12 10:20AM BY AZUCENA FULLER ON/DAVID matt MD [address], [place], [address], [facility] 6 19:06:01 Bronchit is 08866824 Completed 201101/14/2014 RECORDED 01/10/20 12 10:20AM BY AZUCENA FULLER ON/DAVID matt MD [address], [place], [address], [facility] 6 19:06:01 Pain in limb 20012190 Completed 201101/14/2014 RECORDED 01/10/20 12 10:20AM BY AZUCENA FULLER ON/DAVID matt MD [address], [place], [address], [facility] 6 19:06:01 Conjunct ivitis 6600091 Completed 201101/14/2014 IMPRESSI ON: SEE OTHER MESSAGE; RECORDED 01/10/20 12 10:20AM BY AZUCENA FULLER/DAVID matt MD [address], [place], [address], [facility] 6 19:06:01 Counseli ng Completed 201101/14/2014 IMPRESSI ON: RE COUMADIN MONITORI NG, DIET. DUE FOR REPEAT PT/INR TODAY, THEN AGAIN SATURDAY. ANDRÉS BROWN WITH RAIL CAR MAINTENANCE MECHANIC WHO WILL BE IN COMMUNIC ATION WITH PT WE CONTINUE TO FOLLOW TO THERAPEU TIC LEVEL AND THEN W/REG MONITORI NG.; RECORDED 01/10/20 12 10:20AM BY AZUCENA FULLER/DAVID matt MD [address], [place], [address], [facility] 6 19:06:01 Function al visual loss 686654017 Completed 201101/14/2014 RECORDED 01/10/20 12 10:20AM BY AZUCENA FULLER/DAVID matt MD [address], [facility] [place], [address], [facility] 6 19:06:01 Abnormal weight gain 936368613 Completed 201101/14/2014 RECORDED 01/10/20 12 10:20AM BY AZUCENA FULLER/DAVID matt MD [address], [facility] [place], [address], [facility] 6 19:06:01 Hearing loss 98389013 Completed 201101/14/2014 RECORDED 01/10/20 12 10:20AM BY AZUCENA FULLRE/DAVID matt MD [address], [facility] [place], [address], [facility] 6 19:06:01 Immunode ficiency disorder 626301601 Completed 201101/14/2014 RECORDED 01/10/20 12 10:20AM BY AZUCENA FULLER/DAVID matt MD [address], [place], [address], [facility] 6 19:06:01 Disorder of upper respirat ory system Completed 201101/14/2014 RECORDED 01/10/20 12 10:20AM BY AZUCENA FULLER ON/DAVID matt MD [address], [place], [address], [facility] [place] 6 19:06:01 Breast finding 709392541 Completed 201101/14/2014 RECORDED 01/10/20 12 10:20AM BY AZUCENA FULLER ON/DAVID matt MD [address], [place], [address], [facility] 6 19:06:01 Abnormal ity of systemic vein Completed 201101/14/2014 RECORDED 01/10/20 12 10:20AM BY AZUCENA FULLER ON/DAVID matt MD [address], [place], [address], [facility] [place] 6 19:06:01 Shoulder joint pain 540179658 Completed 201101/14/2014 RECORDED 01/10/20 12 10:20AM BY AZUCENA FULLER ON/DAVID matt MD [address], [place], [address], [facility] [place] 6 19:06:01 Phlebiti s and thrombop hlebitis Completed 201101/14/2014 RECORDED 01/10/20 12 10:20AM BY AZUCENA FULLER/DAVID matt MD [address], [place], [address], [facility] [place] 6 19:06:01 Abdomina l pain 98000872 Completed 201101/15/2014 IMPRESSI ON: X 10 DAYS, WITH FAILURE TO MOVE BOWELS. NO EFFECT WITH ENEMAS AND OTC LAXATIVE S. STAT ABDO XRAY APPEARS NEG. I HAVE CONCERN REGARDIN G HIS HIGH LEVEL OF DISCOMFO RT, LACK OF RESPONSE TO MULTIPLE ENEMAS AND OTC LAXATIVE S. DISCUSSE D OPTIONS, ELECTED TO SEEK IMMEDIAT E TX/W/U VIA ER AT [place] [facility] [place]. CALLED IN EXPECT.; RECORDED 01/10/20 12 10:20AM BY AZUCENA FULLER ON/DAVID matt MD [address], [place], [address], [facility] 6 19:06:01 Left upper quadrant pain [id number] Completed 201101/15/2014 RECORDED 01/10/20 12 10:20AM BY AZUCENA FULLER/DAVID matt MD [address] [address], [place], [address], [facility] 6 19:06:01 Chronic allergic conjunct ivitis 50628301 Completed 201101/15/2014 RECORDED 01/10/20 12 10:20AM BY AZUCENA FULLER/DAVID matt MD [address] [address], [place], [address], [facility] 6 19:06:01 Acute asthma 986362508 Completed 201101/15/2014 IMPRESSI ON: MILD; RECORDED 01/10/20 12 10:20AM BY AZUCENA FULLER ON/DAVID matt MD [address], [facility] [place], [address], [facility] 6 19:06:01 Digestiv e symptom 090518522 Completed 201101/15/2014 RECORDED 01/10/20 12 10:20AM BY AZUCENA FULLER/DAVID matt, MD [address], [place], [address], [facility] 6 19:06:01 Bronchit is 57121071 Completed 201101/15/2014 RECORDED 01/10/20 12 10:20AM BY AZUCENA FULLER ON/DAVID matt MD [address], [facility] [place], [address], [facility] 6 19:06:01 Pain in limb 59310187 Completed 201101/15/2014 RECORDED 01/10/20 12 10:20AM BY AZUCENA FULLER ON/DAVID matt MD [address], [place], [address], [facility] 6 19:06:01 Conjunct ivitis 0858992 Completed 201101/15/2014 IMPRESSI ON: SEE OTHER MESSAGE; RECORDED 01/10/20 12 10:20AM BY AZUCENA FULLER/DAVID matt MD [address], [place], [address], [facility] 6 19:06:01 Counseli ng Completed 201101/15/2014 IMPRESSI ON: RE COUMADIN MONITORI NG, DIET. DUE FOR REPEAT PT/INR TODAY, THEN AGAIN SATURDAY. ANDRÉS BROWN WITH RAIL CAR MAINTENANCE MECHANIC WHO WILL BE IN COMMUNIC ATION WITH PT WE CONTINUE TO FOLLOW TO THERAPEU TIC LEVEL AND THEN W/REG MONITORI NG.; RECORDED 01/10/20 12 10:20AM BY AZUCENA FULLER/DAVID matt MD [address], [place], [address], [facility] 6 19:06:01 Function al visual loss 988625952 Completed 201101/15/2014 RECORDED 01/10/20 12 10:20AM BY AZUCENA FULLER ON/DAVID matt MD [address], [place], [address], [facility] 6 19:06:01 Abnormal weight gain 890841957 Completed 201101/15/2014 RECORDED 01/10/20 12 10:20AM BY AZUCENA FULLER ON/DAVID matt MD [address], [place], [address], [facility] 6 19:06:01 Hearing loss 96468486 Completed 201101/15/2014 RECORDED 01/10/20 12 10:20AM BY AZUCENA FULLER ON/DAVID matt MD [address], [place], [address], [facility] 6 19:06:01 Immunode ficiency disorder 351959899 Completed 201101/15/2014 RECORDED 01/10/20 12 10:20AM BY AZUCENA FULLER ON/DAVID matt MD [address], [place], [address], [facility] 6 19:06:01 Disorder of upper respirat ory system Completed 201101/15/2014 RECORDED 01/10/20 12 10:20AM BY AZUCENA FULLER ON/DAVID matt MD [address], [place], [address], [facility] 6 19:06:01 Breast finding 415565668 Completed 201101/15/2014 RECORDED 01/10/20 12 10:20AM BY AZUCENA FULLER ON/DAVID matt MD [address], [place], [address], [facility] 6 19:06:01 Abnormal ity of systemic vein Completed 201101/15/2014 RECORDED 01/10/20 12 10:20AM BY AZUCENA FULLER ON/DAVID matt MD [address], [place], [address], [facility] 6 19:06:01 Shoulder joint pain 450361609 Completed 201101/15/2014 RECORDED 01/10/20 12 10:20AM BY AZUCENA FULLER ON/DAVID matt MD [address], [facility] [place], [address], [facility] 6 19:06:01 Phlebiti s and thrombop hlebitis Completed 201101/15/2014 RECORDED 01/10/20 12 10:20AM BY AZUCENA FULLER ON/DAVID matt MD [address], [place], [address], [facility] 6 19:06:01 Abdomina l pain 80941778 Completed 201112/22/2013 IMPRESSI ON: X 10 DAYS, WITH FAILURE TO MOVE BOWELS. NO EFFECT WITH ENEMAS AND OTC LAXATIVE S. STAT ABDO XRAY APPEARS NEG. I HAVE CONCERN REGARDIN G HIS HIGH LEVEL OF DISCOMFO RT, LACK OF RESPONSE TO MULTIPLE ENEMAS AND OTC LAXATIVE S. DISCUSSE D OPTIONS, ELECTED TO SEEK IMMEDIAT E TX/W/U VIA ER AT [place] [facility] [place]. CALLED IN EXPECT.; RECORDED 01/10/20 12 10:20AM BY AZUCENA FULLER/DAVID matt MD [address], [place], [address], [facility] 6 19:06:01 Left upper quadrant pain 174130599 Completed 201112/22/2013 RECORDED 01/10/20 12 10:20AM BY AZUCENA FULLER ON/DAVID matt MD [address], [place], [address], [facility] 6 19:06:01 Chronic allergic conjunct ivitis 96576238 Completed 201112/22/2013 RECORDED 01/10/20 12 10:20AM BY AZUCENA FULLER ON/DAVID matt MD [address], [place], [address], [facility] 6 19:06:01 Acute asthma 258660939 Completed 201112/22/2013 IMPRESSI ON: MILD; RECORDED 01/10/20 12 10:20AM BY AZUCENA FULLER ON/DAVID matt MD [address], [place], [address], [facility] 6 19:06:01 Digestiv e symptom 376382060 Completed 201112/22/2013 RECORDED 01/10/20 12 10:20AM BY AZUCENA FULLER ON/DAVID matt MD [address], [place], [address], [facility] 6 19:06:01 Bronchit is 78371283 Completed 201112/22/2013 RECORDED 01/10/20 12 10:20AM BY AZUCENA FULLER ON/DAVID matt MD [address], [place], [address], [facility] 6 19:06:01 Pain in limb 33877594 Completed 201112/22/2013 RECORDED 01/10/20 12 10:20AM BY AZUCENA FULLER/DAVID matt MD [address], [facility] [place], [address], [facility] 6 19:06:01 Conjunct ivitis 6048659 Completed 201112/22/2013 IMPRESSI ON: SEE OTHER MESSAGE; RECORDED 01/10/20 12 10:20AM BY AZUCENA FULLER ON/DAVID matt MD [address], [place], [address], [facility] 6 19:06:01 Counseli ng Completed 201112/22/2013 IMPRESSI ON: RE COUMADIN MONITORI NG, DIET. DUE FOR REPEAT PT/INR TODAY, THEN AGAIN SATURDAY. ANDRÉS BROWN WITH RAIL CAR MAINTENANCE MECHANIC WHO WILL BE IN COMMUNIC ATION WITH PT WE CONTINUE TO FOLLOW TO THERAPEU TIC LEVEL AND THEN W/REG MONITORI NG.; RECORDED 01/10/20 12 10:20AM BY AZUCENA FULLER ON/DAVID matt MD [address], [place], [address], [facility] 6 19:06:01 Function al visual loss 802668196 Completed 201112/22/2013 RECORDED 01/10/20 12 10:20AM BY AZUCENA FULLER ON/DAVID matt MD [address], [place], [address], [facility] 6 19:06:01 Abnormal weight gain 285424722 Completed 201112/22/2013 RECORDED 01/10/20 12 10:20AM BY AZUCENA FULLER/DAVID matt MD [address], [place], [address], [facility] 6 19:06:01 Hearing loss 86408693 Completed 201112/22/2013 RECORDED 01/10/20 12 10:20AM BY AZUCENA FULLER/DAVID matt MD [address], [place], [address], [facility] 6 19:06:01 Immunode ficiency disorder 065062981 Completed 201112/22/2013 RECORDED 01/10/20 12 10:20AM BY AZUCENA FULLER ON/DAVID matt MD [address] [facility] [address], [place], [address], [facility] 6 19:06:01 Disorder of upper respirat ory system Completed 201112/22/2013 RECORDED 01/10/20 12 10:20AM BY AZUCENA FULLER/DAVID matt MD [address] [facility] [address], [place], [address], [facility] 6 19:06:01 Breast finding [id number] Completed 201112/22/2013 RECORDED 01/10/20 12 10:20AM BY AZUCENA FULLER ON/DAVID matt MD [address], [place], [address], [facility] 6 19:06:01 Abnormal ity of systemic vein Completed 201112/22/2013 RECORDED 01/10/20 12 10:20AM BY AZUCENA FULLER/DAVID matt MD [address], [place], [address], [facility] 6 19:06:01 Shoulder joint pain 619968517 Completed 201112/22/2013 RECORDED 01/10/20 12 10:20AM BY AZUCENA FULLER ON/DAVID matt MD [address], [facility] [place], [address], [facility] 6 19:06:01 Phlebiti s and thrombop hlebitis Completed 201112/22/2013 RECORDED 01/10/20 12 10:20AM BY AZUCENA FULLER ON/DAVID matt MD [address], [facility] [place], [address], [facility] 6 19:06:01 Acute pharyngi tis 432148645 Completed 201101/14/2014 IMPRESSI ON: RAPID STREP NEGATIVE , C/W VIRAL INFECTIO N, RECOMMEN D SUPPORTI VE TREATMEN T.; RECORDED 04/14/20 12 11:30AM BY AZUCENA FULLER ON/DAVID matt MD [address], [facility] [place], [address], [facility] 6 19:06:01 Acute pharyngi tis 568826416 Completed 201101/15/2014 IMPRESSI ON: RAPID STREP NEGATIVE , C/W VIRAL INFECTIO N, RECOMMEN D SUPPORTI VE TREATMEN T.; RECORDED 04/14/20 12 11:30AM BY AZUCENA FULLER ON/DAVID matt MD [address], [place], [address], [facility] 6 19:06:01 Acute pharyngi tis 859277977 Completed 201112/22/2013 IMPRESSI ON: RAPID STREP NEGATIVE , C/W VIRAL INFECTIO N, RECOMMEN D SUPPORTI VE TREATMEN T.; RECORDED 04/14/20 12 11:30AM BY AZUCENA FULLER ON/LUCRECIAEN MARY matt MD [address], [facility] [place], [address], [facility] 6 19:06:01 Depressi ve disorder 30705626 Completed 201201/14/2014 RECORDED 07/09/19 13 1:05AM BY QUIN RODRIGUEZ MA, AZUCENA ON/ADDEN MARY matt MD [address], [place], [address], [facility] 6 19:06:01 Onychomy cosis due to dermatop hyte 735340991 Completed 201201/14/2014 RECORDED 07/09/19 13 1:06AM BY AZUCENA FULLER ON/ADDEN MARY matt MD [address] [facility] [facility] [address], [place], [address], [facility] 6 19:06:01 Depressi ve disorder 74365474 Completed 201201/15/2014 RECORDED 07/09/19 13 1:05AM BY QUIN RODRIGUEZ MA, AZUCENA ON/DAVID matt MD [address] [facility] [facility] [address], [place], [address], [facility] [place] 6 19:06:01 Onychomy cosis due to dermatop hyte 378166931 Completed 201201/15/2014 RECORDED 07/09/19 13 1:06AM BY AZUCENA FULLER ON/LUCRECIAEN MARY matt MD [address] [facility], [place], [address], [facility] 6 19:06:01 Depressi ve disorder 27436328 Completed 201212/22/2013 RECORDED 07/09/19 13 1:05AM BY QUIN RODRIGUEZ MA, AZUCENA ON/DAVID matt MD [address], [facility] [place], [address], [facility] 6 19:06:01 Onychomy cosis due to dermatop hyte 003469178 Completed 201212/22/2013 RECORDED 07/09/19 13 1:06AM BY AZUCENA FULLER ON/DAVID matt MD [address] [facility] [address], [facility] [place], [address], [facility] 6 19:06:01 Knee pain Completed 201201/14/2014 RECORDED 07/15/19 13 11:37AM BY AZUCENA FULLER ON/DAVID matt MD [address], [facility] [place], [address], [facility] 6 19:06:01 Renewal of prescrip tion Completed 201201/14/2014 RECORDED 07/15/19 13 11:37AM BY AZUCENA FULLER ON/DAVID matt MD [address] [facility] [address], [facility] [place], [address], [facility] 6 19:06:01 Knee pain Completed 201201/15/2014 RECORDED 07/15/19 13 11:37AM BY AZUCENA FULLER ON/DAVID matt MD [address], [facility] [place], [address], [facility] 6 19:06:01 Renewal of prescrip tion Completed 201201/15/2014 RECORDED 07/15/19 13 11:37AM BY AZUCENA FULLER ON/DAVID matt MD [address] [facility] [address], [place], [address], [facility] 6 19:06:01 Knee pain Completed 201212/22/2013 RECORDED 07/15/19 13 11:37AM BY AZUCENA FULLER ON/DAVID matt MD [address] [facility], [place], [address], [facility] 6 19:06:01 Renewal of prescrip tion Completed 201212/22/2013 RECORDED 07/15/19 13 11:37AM BY AZUCENA FULLER ON/DAVID matt MD [address] [facility], [place], [address], [facility] 6 19:06:01 Abscess of eyelid [id number] Completed 201201/14/2014 IMPRESSI ON: WILL FIND HOW TO GET HIM AN EYE DR LI OR BE EVALUATE D URGENTLY SOMEWHER E. PT ALSO EXAMINED BY DR. RUPERT Perez; RECORDED 11/25/19 13 12:54PM BY AZUCENA FULLER/DAVID matt MD [address] [facility], [place], [address], [facility] 6 19:06:01 Abscess of eyelid [id number] Completed 201201/15/2014 IMPRESSI ON: WILL FIND HOW TO GET HIM AN EYE DR LI OR BE EVALUATE D URGENTLY SOMEWHER E. PT ALSO EXAMINED BY DR. RUPERT Perez; RECORDED 11/25/19 13 12:54PM BY AZUCENA FULLER/DAVID matt MD [address] [facility], [facility] [place], [address], [facility] 6 19:06:01 Abscess of eyelid [id number] Completed 201212/22/2013 IMPRESSI ON: WILL FIND HOW TO GET HIM AN EYE DR APPT OR BE EVALUATE D VIVI Rubio. PT ALSO EXAMINED BY DR. RUPERT Lopez.; RECORDED 11/25/19 13 12:54PM BY AZUCENA FULLER ON/DAVID matt MD [address] [facility], [place], [address], [facility] 6 19:06:01 External hordeolu m [id number] Completed 201201/14/2014 IMPRESSI ON: HAS AN OPHTHO APPT NEXT WEEK.; RECORDED 03/05/20 13 8:56AM BY AZUCENA FULLER ON/DAVID matt MD [address] [address], [place], [address], [facility] 6 19:06:01 External hordeolu m [id number] Completed 201201/15/2014 IMPRESSI ON: HAS AN OPHTHO APPT NEXT WEEK.; RECORDED 03/05/20 13 8:56AM BY AZUCENA FULLER ON/DAVID matt MD [address] [address], [facility] [place], [address], [facility] 6 19:06:01 External hordeolu m [id number] Completed 201212/22/2013 IMPRESSI ON: HAS AN OPHTHO APPT NEXT WEEK.; RECORDED 03/05/20 13 8:56AM BY AZUCENA FULLER/DAVID matt MD [address] [facility], [facility] [place], [address], [facility] 6 19:06:01 Adult health examinat ion Completed 201201/14/2014 RECORDED 04/06/20 13 10:40AM BY CAMRON FULLERATI ON/DAVID matt MD [address] [facility], [place], [address], [facility] [place] 6 19:06:01 Adult health examinat ion Completed 201201/15/2014 RECORDED 04/06/20 13 10:40AM BY CAMRON FULLERATI ON/DAVID matt MD [address] [facility], [place], [address], [facility] 6 19:06:01 Adult health examinat ion Completed 201212/22/2013 RECORDED 04/06/20 13 10:40AM BY AZUCENA FULLER ON/DAVID matt MD [address], [place], [address], [facility] [place] 6 19:06:01 Acute upper respirat ory infectio n [id number] Completed 201201/14/2014 IMPRESSI ON: NO SIGNS FOR BACTERIA L INFECTIO ; WILL TREAT WITH CODEINE AND HE WILL CALL NEXT WEEK IF HIS SX PERSIST. ; RECORDED 05/04/20 13 11:01AM BY AZUCENA FULLER ON/DAVID matt MD [address], [place], [address], [facility] 6 19:06:01 Acute upper respirat ory infectio n [id number] Completed 201201/15/2014 IMPRESSI ON: NO SIGNS FOR BACTERIA L INFECTIO ; WILL TREAT WITH CODEINE AND HE WILL CALL NEXT WEEK IF HIS SX PERSIST. ; RECORDED 05/04/20 13 11:01AM BY AZUCENA FULLER ON/DAVID matt MD [address] [facility] [address], [place], [address], [facility] 6 19:06:01 Acute upper respirat ory infectio n [id number] Completed 201212/22/2013 IMPRESSI ON: NO SIGNS FOR BACTERIA L INFECTIO ; WILL TREAT WITH CODEINE AND HE WILL CALL NEXT WEEK IF HIS SX PERSIST. ; RECORDED 05/04/20 13 11:01AM BY AZUCENA FULLER ON/DAVID matt MD [address] [facility] [address], [place], [address], [facility] 6 19:06:01 Anemia [id number] Completed 201301/14/2014 IMPRESSI ON: HGB 13 IN HOSPITAL BEFORE DISCHARG E, WILL REPEAT IN 2 WEEKS, LABSLIP GIVEN; RECORDED 08/04/19 14 10:34AM BY AZUCENA FULLER ON/DAVID matt MD [address] [facility] [address], [facility] [place], [address], [facility] 6 19:06:01 Hemorrha ge of rectum and anus 147714014 Completed 201301/14/2014 RECORDED 08/04/19 14 10:34AM BY AZUCENA FULLER ON/DAVID matt MD [address] [facility] [address], [facility] [place], [address], [facility] 6 19:06:01 Cough [id number] Completed 201301/14/2014 IMPRESSI ON: C/W VIRAL ILLNESS, LUNGS ARE CLEAR TODAY AND AFEBRILE , RECOMMEN D SUPPORTI VE TX INCL. REST AND HYDRATIO N BUT ADVISE TO RTC IF PERSISTE NT FEVER OR DYSPNEA. 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 , HIV+, SEND TO ER VIA AMBULANC E; RECORDED 08/04/19 14 10:34AM BY AZUCENA FULLER ON/DAVID matt MD [address], [place], [address], [facility] 6 19:06:01 Follow-u p encounte r Completed 201301/14/2014 RECORDED 08/04/19 14 10:34AM BY AZUCENA FULLER ON/DAVID matt MD [address], [place], [address], [facility] 6 19:06:01 Influenz a with respirat ory manifest ation other than pneumoni a Completed 201301/14/2014 IMPRESSI ON: RESOLVIN G, ON TAMIFLU, WILL COMPLETE COURSE; RECORDED 08/04/19 14 10:34AM BY AZUCENA FULLER ON/DAVID matt MD [address], [place], [address], [facility] 6 19:06:01 Anemia [id number] Completed 201301/15/2014 IMPRESSI ON: HGB 13 IN HOSPITAL BEFORE DISCHARG E, WILL REPEAT IN 2 WEEKS, LABSLIP GIVEN; RECORDED 08/04/19 14 10:34AM BY AZUCENA FULLER ON/DAVID matt MD [address], [place], [address], [facility] 6 19:06:01 Hemorrha ge of rectum and anus [id number] Completed 201301/15/2014 RECORDED 08/04/19 14 10:34AM BY AZUCENA FULLER ON/DAVID matt MD [address], [facility] [place], [address], [facility] 6 19:06:01 Cough [id number] Completed 201301/15/2014 IMPRESSI ON: C/W VIRAL ILLNESS, LUNGS ARE CLEAR TODAY AND AFEBRILE , RECOMMEN D SUPPORTI VE TX INCL. REST AND HYDRATIO N BUT ADVISE TO RTC IF PERSISTE NT FEVER OR DYSPNEA. 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 , HIV+, SEND TO ER VIA AMBULANC E; RECORDED 08/04/19 14 10:34AM BY AZUCENA FULLER ON/DAVID matt MD [address], [place], [address], [facility] 6 19:06:01 Follow-u p encounte r Completed 201301/15/2014 RECORDED 08/04/19 14 10:34AM BY AZUCENA FULLER/DAVID matt MD [address] [facility] [address], [place], [address], [facility] 6 19:06:01 Influenz a with respirat ory manifest ation other than pneumoni a Completed 201301/15/2014 IMPRESSI ON: RESOLVIN G, ON TAMIFLU, WILL COMPLETE COURSE; RECORDED 08/04/19 14 10:34AM BY AZUCENA FULLER ON/DAVID matt MD [address] [facility] [address], [facility] [place], [address], [facility] 6 19:06:01 Anemia [id number] Completed 201312/22/2013 IMPRESSI ON: HGB 13 IN HOSPITAL BEFORE DISCHARG E, WILL REPEAT IN 2 WEEKS, LABSLIP GIVEN; RECORDED 08/04/19 14 10:34AM BY AZUCENA FULLER ON/DAVID matt MD [address] [facility] [address], [facility] [place], [address], [facility] 6 19:06:01 Hemorrha ge of rectum and anus [id number] Completed 201312/22/2013 RECORDED 08/04/19 14 10:34AM BY AZUCENA FULLER ON/DAVID matt MD [address] [facility] [address], [facility] [place], [address], [facility] 6 19:06:01 Cough [id number] Completed 201312/22/2013 IMPRESSI ON: C/W VIRAL ILLNESS, LUNGS ARE CLEAR TODAY AND AFEBRILE , RECOMMEN D SUPPORTI VE TX INCL. REST AND HYDRATIO N BUT ADVISE TO RTC IF PERSISTE NT FEVER OR DYSPNEA. 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 , HIV+, SEND TO ER VIA AMBULANC E; RECORDED 08/04/19 14 10:34AM BY AZUCENA FULLER ON/DAVID matt MD [address], [place], [address], [facility] 6 19:06:01 Follow-u p encounte r Completed 201312/22/2013 RECORDED 08/04/19 14 10:34AM BY AZUCENA FULLER ON/DAVID matt MD [address], [place], [address], [facility] [place] 6 19:06:01 Influenz a with respirat ory manifest ation other than pneumoni a Completed 201312/22/2013 IMPRESSI ON: RESOLVIN G, ON TAMIFLU, WILL COMPLETE COURSE; RECORDED 08/04/19 14 10:34AM BY AZUCENA FULLER ON/DAVID matt MD [address] [facility] [address], [place], [address], [facility] [place] 6 19:06:01 Arthropa thy of knee joint 494611642 Active 2013 IMPRESSI ON: FOLLOWED BY ALAN; MCL sprain with medial compartm ent OA. Prescrib ed a rigid brace. 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 On lifelong coumadin Kellysonja Cordova [facility] 0 13:52:52 Degenera tion of lumbar interver tebral disc 43326185 Active 2013 Kelly Money [facility] 0 13:52:52 Blood coagulat ion disorder 56455539 Active 2013 Was positive for anticard iolipin Ab but has become negative . Followed by Dr Modi and on lifelong anticoag ulation. Kellysonja Cordova [facility] 0 13:52:52 Asthma 434698430 Active 2013 Kelly Money [facility] 0 13:52:52 Recurren t major depressi ve episodes , moderate 645830578 Active 2013 Kelly Art [facility] 0 13:52:52 Pure hypercho lesterol emia 568873923 Completed 201303/21/2017 RECORDED 12/03/19 14 2:09PM BY MERY RHODES I, OFFICE VISIT Ruthann matt MD [address], [place], [address] [place] [address] 7 11:41:51 Insomnia 305461122 Active 2013 Kellysonja Cordova [facility] 0 13:52:52 Tobacco dependen ce syndrome 68828726 Active 2013 Kelly Art [facility] 0 13:52:52 Abnormal anal Papanico laou smear 815555802 Active 2014 Referred to surgery. Negative for AIN; needs yearly PAPs Kelly warren [facility] 0 13:52:52 Low grade squamous intraepi thelial lesion on anal Papanico laou smear 95455347422 9106 Active 2015 followed by surgery; had anal biopsy which was negative ; followed yearly. Kelly warren, [facility] 0 13:52:52 Hyperlip idemia 50580590 Active 2016 Kelly warren, [facility] 0 13:52:52 Allergic rhinitis 37592988 Active 2016 Kelly Art warren, [facility] 0 13:52:52 Traumati c dislocat ion of joint of finger 724484019 Active 2017 4th finger. Reduced in ER Kelly warren [facility] 0 13:52:52 Carpal tunnel syndrome of right wrist 79977081745 9108 Active 2018 Kelly Art [facility], [facility] 0 13:52:52 Alcohol dependen ce 27819065 Active 2018 Kelly warren, [facility] 0 13:52:52 Patellof emoral osteoart hritis 465164041 Active 2018 Nae lorenzo; seen at [facility]; PT and meds are only treatmen t. Kelly warren, [facility] 0 13:52:52 Gastroes ophageal reflux disease 476655159 Active 2018 Kelly Art [facility], [facility] 0 13:52:52 Obstruct lexi sleep apnea syndrome 44834031 Active 2019 Kelly Art null, [facility] 0 13:52:52 Essentia l hyperten adam 39078797 Active 2019 Kelly Art null, [facility] 0 13:52:52 Right lateral elbow tendinop athy 68223536852 9107 Active 2019 seen by jay Cordova null, [facility] 0 13:52:52 Stenosin g tenosyno vitis 50441168 Active 2020 left ring finger; seen by Dr Fontana; consider ing surgery. Ruthann matt MD [address], [place], [address], [facility] 1 08:42:39 Cyst 178082305 Active 2020 retinacu lar cyst of left ring finger. Dr Fontana recommen surgery. Ruthann matt MD [address], [place], [address], [facility] 1 08:43:24 Dizzines s 646427804 Active 2020 Gertrude Woods PA-C [address], [place], [address], [facility] 1 15:12:20 Eczema of ear lobe 76237710 Active 2020 Gertrude Woods PA-C [address] [facility] [address], [place], [address], [facility] 1 15:17:29 SARS-CoV -2 Active 2021 Quin childs [place] null, [facility] 2 13:57:23 Hypercoa gulabili ty state 41269452 Active 2021 Josue Bacon MD [address] [facility] [address], [place], [address], [facility] 2 14:33:58 Generali zed anxiety disorder 24507262 Active 2022 Ruthann matt MD [address], [place], [address], [facility] 3 15:36:59 Type 2 diabetes mellitus 05082338 Active 2024 Ruthann matt MD [address] [facility] [address], [facility] [place], [address], [facility] 5 07:42:07 Problem Notes None recorded. Procedures Surgical History Date Name Laterality Status Provider Name and Address Organization Details Recorded Time 11/03/19 22 Carpal tunnel surgery completed Shireen Solorio [facility] 11/20/2021 15:10:46 10/22/19 21 Colonoscopy completed Deepika Peralta [facility] 10/28/2020 11:18:56 07/22/19 19 Carpal tunnel surgery completed Quin jeffrey MA [facility] 03/05/2019 15:05:37 05/28/20 18 Mini-Cog Test completed Mery Gao [facility] 05/28/2018 13:34:35 03/05/20 18 Unlisted px hands/fingers completed Shireen Solorio [facility] 03/06/2019 15:18:47 02/14/20 18 open reduction of dislocation completed Quin jeffrey MA [facility] 03/05/2019 15:10:44 01/11/20 18 tooth extraction completed Quin jeffrey MA [facility] 03/05/2019 14:40:16 05/31/20 15 Anoscopy and biopsy completed Quin jeffrey MA [facility] 03/05/2019 14:39:24 04/15/20 15 microscopic examination of anal Papanicolaou smear completed Quin jeffrey MA [facility] 03/05/2019 14:38:34 Oral surgery procedure completed Roxy Gupta MA [facility] 07/10/2022 13:07:19 Imaging Results None recorded. Procedure Notes None recorded. Medical Equipment None Reported. Allergies Allergen ID Allergen Name Allergen Category Reaction Reaction Severity Criticality Documentation Date Start Date Code Code System Note Provider Name and Address Organization Details Recorded Time 08227 hepatitis B surface antigen vaccine medicatio n itching Not available Not available 03/16/2022 12163 2 RxNorm BELKIS Colunga MA [facility] 2 13:59:27 Medications Name Sig Start Date Stop Date Status Note LastModified by Organization Details LastModified Time acetamino phen/code ine 300-15 mg tabs active Not Available Not Available Not Available loratadin e 10 mg tabs active Not Available Not Available Not Available vitamin d 83178 unit caps active Not Available Not Available No t Available vitamin d 50 mcg (1999) 01/23 completed Not Available Not Available Not [...] 2024 active Not Available Not Available Not Avyesika labjess triamcino lone acetonide 0.1 % topical cream [...] 12 9:25AM BY RUTHANN SADLER MD, AZUCENA ON/ADDEN DUM; Not Available Not Available Not Available Acular 0.5 % eye drops FOUR TIMES DAILY 06/26 completed RECORDED 06/26/19 12 9:25AM BY RUTHANN SADLER MD, AZUCENA ON/ADDEN DUM; Not Available Not Available Not [...] 12 9:25AM BY RUTHANN SADLER MD, AZUCENA ON/ADDEN DUM; Not Available Not Available Not [...] Not Avai lable Nasonex 50 mcg/actua tion [place] 2 sprays every day by intranas al [...] RECORDED 11/12/19 10 1:36PM BY AZUCENA MONTEIRO ON/DAVID DUM; Not Available [...] RECORDED 06/07/20 11 2:52PM BY AZUCENA MONTEIRO ON/DAVID HERNANDEZ;DX=A STHMA Not Available Not Available Not Available varenicli ne tartrate 1 mg tablet 2 TIMES A DAY TO HELP QUIT SMOKING 11/11 completed RECORDED 11/12/19 10 1:36PM BY AZUCENA MONTEIRO ON/DAVID HERNANDEZ; Not Available Not Available Not Available Chantix Starting Month Jarrod 0.5 mg (11)-1 mg (42) tablets in dose pack TWO TIMES DAILY 12/14 completed RECORDED 12/16/19 10 10:15AM BY RUTHANN SADLER MD, MEDICATI ON AUTO-EVER CTIVATIO N; Not Available Not Available Not Available efavirenz 600 mg-emtric itabine 200 mg-tenofo vir disoprox 300 mg tablet DAILY 11/07 completed RECORDED 11/08/19 12 3:00PM BY FRIDA NAJERA ANNOTDERRICK ON/DAVID DUM; Not Available Not Available Not [...] Available Not Available Not Available Flucelvax Quad 9219-0804 60 mcg (15 mcg x 4)/0.5 mL [...] Details Last Updated DateTime 5 180.34 cm 32.4 kg/m2 126369. 43 g 61 /min 96 % 98.1 [degF] 127/86 mm[Hg] Glenny Mann MA [facility] 5 13:49:23 Social History Question Answer Notes LastModified by Organizat ion Details LastModified Time Tobacco Smoking Status Current Every Day Smoker Not Available [employer] 04/12/2020 03:36:34 Do You Have An Advance Directive? Yes [id number] Information not available 04/12/2020 Is Blood Transfusion Acceptable In An Emergency? Yes [id number] Information not available 04/12/2020 What Is Your Level Of Caffeine Consumption? Heavy 2 Pots Of Coffee Daily (five Large Cups Of Coffee); Occasional Soda Information not available 05/21/2023 How Much Tobacco Do You Chew? None [id number] Information not available 04/12/2020 What Type Of Diet Are You Following? REGULAR Eating More Cabbage [id number] Information not available 04/12/2020 Which Illicit Or Recreational Drugs Have You Used? Marijuana, Crack Quit Crack Cocaine On October 07, 2018 [id number] Information not available 04/12/2020 Are There Any Guns Present In Your Home? No [id number] Information not available 04/12/2020 Live Alone Or [...] Have You Served In The ? No [email or web address] Information not available 04/09/2016 Have You Or [...] 06/28/2021 Have You Recently Traveled To A [facility] High Risk Area Or Gathering In The Last 10 Days? No Information not available 12/27/2020 What Was The Date Of Your Most Recent Tobacco Screening? 09/29/2024 [email or web address] Information not available 09/29/2024 How Many Children Do You Have? 0 [id number] Information not available 04/12/2020 What Is Your Current Pack Years? 30ormorepa [email or web address] Information not available 06/28/2021 Do You Use Protection During Sex? Usually [id number] Information not available 04/12/2020 Seat Belts Used Routinely Yes Information not available 04/07/2015 Are You Sexually Active? Yes [id number] Information not available 04/12/2020 Smoke Alarm In Home Yes Information not available 04/07/2015 At What Age Did You Start Smoking Tobacco? 13 [id number] Information not available 04/12/2020 Are You Passively Exposed To Smoke? Yes [email or web address] Information not available 04/09/2016 How Much Tobacco Do You Smoke? 0.5 PPD [id number] Information not available 04/12/2020 General Stress Level Medium [email or web address] Information not available 03/23/2014 Do You Use Sunscreen Routinely? No [id number] Information not available 04/12/2020 How Many Years Have You Smoked Tobacco? 41 [id number] Information not available 04/12/2020 Sex: Unknown Functional Status Question Answer Note LastModified by Organizat ion Details LastModified Time Do you use any illicit or recreational drugs? No Information not available 06/28/2021 Do you or have you ever used any other forms of tobacco or nicotine? No Information not available 06/28/2021 What is your level of alcohol consumption? None quit October 07, 2018 [id number] Information not available 04/12/2020 Do you or have you ever used smokeless tobacco? Never used smokeless tobacco [id number] Information not available 04/12/2020 Are you currently employed? No [id number] Information not available 04/12/2020 Are you able to walk independently without assistance or assistive devices? YESWOREST [email or web address] Information not available 02/07/2021 Are you able to care for yourself independently? Yes [id number] Information not available 04/12/2020 What is your occupation? disabled Information not available 03/05/2019 Do you or have you ever used e-cigarettes or vape? Never used electronic cigarettes [id number] Information not available 04/12/2020 What is your exercise level? Occasional walking and using stairs [id number] Information not available 04/12/2020 Mental Status None [...] N Breast Cancer N mrsa exposure N Depression Y COPD N Lung Disease N Hypothyroidism N Developmental or Behavioral Disorders N Defects or Inherited Disease N Breast Problem N Anesthesia Complications N Headaches/Migraines N Varicose Veins N Anxiety Disorder N Muscle, Joint, or Bone Problems N Obesity N Vision or Eye Problems N Arthritis N Head Injury/Concussion N Polyps N Infertility N Mental Disorder N Congenital Anomalies N Acid Reflux (GERD) N Cancer N Stroke N ADHD N Endometriosis N High Cholesterol Y Liver Disease N Headaches N Fibromyalgia N Kidney Disease N Heart Problems N [...] MDCK, quadrivalent, preservative 9 completed BELKIS Samayoa [facility] 02/21/2022 11:36:55 pneumococcal polysaccharide PPV23 9 [facility] 11:36:54 meningococcal ACWY, unspecified formulation 7 [facility] 11:36:54 influenza, whole 2 [facility] 11:36:54 Hep A-Hep B 3 [facility] 11:36:54 Influenza, split virus, trivalent, preservative 3 completed BELKIS Samayoa [facility] 02/21/2022 11:36:54 pneumococcal polysaccharide PPV23 2 completed BELKIS Samayoa [facility] 02/21/2022 11:36:55 Hep A-Hep B 3 completed BELKIS Samayoa [facility] 02/21/2022 11:36:55 Hep A-Hep B 4 [facility] 11:36:55 influenza, whole 9 completed Mery warren [facility] 09/22/2019 09:57:03 Hep A, adult 2 completed BELKIS Samayoa [facility] 02/21/2022 11:36:55 Hep A, adult 2 completed BELKIS Samayoa, [facility] 02/21/2022 11:36:55 Influenza, split virus, trivalent, preservative 8 completed BELKIS Samayoa, [facility] 02/21/2022 11:36:55 Hep B, adult 9 completed BELKIS Samayoa, [facility] 02/21/2022 11:36:55 Tdap 2 completed BELKIS Samayoa, [facility] 02/21/2022 11:36:55 Influenza, split virus, trivalent, preservative 5 completed BELKIS Samayoa, [facility] 02/21/2022 11:36:55 pneumococcal conjugate PCV 7 3 completed BELKIS Samayoa, [facility] 02/21/2022 11:36:55 Hep B, adult 9 completed Mery Gao null, [facility] 09/22/2019 09:57:04 COVID-19, mRNA, LNP-S, PF, 30 mcg/0.3 mL dose 1 completed BELKIS Alvarez, [facility] 05/31/2021 16:16:34 Influenza, split virus, trivalent, preservative 1 completed BELKIS Alvarez, [facility] 05/31/2021 16:16:34 zoster recombinant 1 completed BELKIS Alvarez, [facility] 05/31/2021 16:16:34 COVID-19, mRNA, LNP-S, PF, 30 mcg/0.3 mL dose 1 completed BELKIS Alvarez, [facility] 05/31/2021 16:16:34 COVID-19, mRNA, LNP-S, PF, 30 mcg/0.3 mL dose 1 completed Roxy Gupta MA null, [facility] 05/31/2021 16:16:34 Influenza, MDCK, quadrivalent, preservative 9 completed Roxy Gupta MA null, [facility] 05/31/2021 16:16:34 pneumococcal polysaccharide PPV23 2 completed Kelly Money null, [facility] 11/05/2019 13:52:46 Hep B, adult 6 completed [facility], [facility] 11/05/2019 13:52:46 Influenza, split virus, trivalent, preservative 7 completed [facility] 11/05/2019 13:52:46 Tdap 8 completed [facility], [facility] 11/05/2019 13:52:46 Influenza, split virus, trivalent, preservative 8 completed [facility], [facility] 11/05/2019 13:52:46 Influenza, split virus, trivalent, preservative 9 completed [facility] 11/05/2019 13:52:46 Novel [id number], all formulations 0 completed Kelly Money [facility], [facility] 11/05/2019 13:52:46 Influenza, split virus, trivalent, preservative 0 completed Kelly Money null, [facility] 11/05/2019 13:52:46 Influenza, split virus, trivalent, preservative 1 completed Kelly Money null, [facility] 11/05/2019 13:52:46 Influenza, split virus, trivalent, preservative 3 [facility] 13:52:46 COVID-19, mRNA, LNP-S, PF, 10 mcg/0.2 mL dose, jocelyn-sucrose 1 completed BELKIS Samayoa, [facility] 02/21/2022 11:36:54 COVID-19, mRNA, LNP-S, PF, 30 mcg/0.3 mL dose, jocelyn-sucrose 2 completed BELKIS Samayoa, [facility] 02/21/2022 11:36:54 Influenza, split virus, quadrivalent, PF 8 [facility] 11:36:54 Td (adult), 2 Lf tetanus toxoid, preservative free, adsorbed 8 [facility] 11:36:55 Influenza, split virus, quadrivalent, PF 7 completed BELKIS Samayoa, [facility] 02/21/2022 11:36:55 Influenza, split virus, quadrivalent, PF 6 completed BELKIS Samayoa, [facility] 02/21/2022 11:36:55 Influenza, split virus, quadrivalent, PF 5 completed BELKIS Samayoa, [facility] 02/21/2022 11:36:55 zoster recombinant 2 completed BELKIS Samayoa, [facility] 02/21/2022 11:36:55 Influenza, split virus, quadrivalent, PF 0 [facility] 11:36:55 Influenza, split virus, trivalent, preservative 1 [facility] 11:36:55 Influenza, split virus, quadrivalent, PF 5 completed BELKIS Alvarez, [facility] 03/14/2022 13:27:19 Influenza, split virus, quadrivalent, PF 2 completed BELKIS Catalan, [facility] 03/16/2022 13:58:37 Vaccinia, smallpox monkeypox vaccine live, PF, SQ or ID injection 2 completed BELKIS Alvarez, [facility] 07/10/2022 12:57:08 Vaccinia, smallpox monkeypox vaccine live, PF, SQ or ID injection 2 [facility] 12:57:08 Influenza, MDCK, quadrivalent, PF 3 [facility]23 13:37:44 COVID-19, mRNA, LNP-S, PF, 50 mcg/0.5 mL 3 [facility]23 13:37:44 COVID-19, mRNA, LNP-S, PF, 50 mcg/0.5 mL 3 [facility]23 13:37:44 Pneumococcal conjugate PCV20, polysaccharide [id number] conjugate, adjuvant, PF 4 completed Not Available [facility] 05/04/2025 13:36:15 COVID-19, mRNA, LNP-S, PF, jocelyn-sucrose, 30 mcg/0.3 mL 4 completed Not Available [facility] 05/04/2025 13:36:15 Influenza, MDCK, trivalent, PF 4 completed Not Available [facility] 05/04/2025 13:36:15 Past Encounters Encounter ID Performer Location Encounter Start Date Encounter Closed Date Diagnosis/Indication Diagnosis SNOMED-CT Code Diagnosis ICD10 Code Diagnosis IMO Codes Diagnosis Note [id number] Ruthann Trejo MD Main Office [address] [facility] [address] 04/13/2025 13:13:51 04/13/2025 14:20:58 Radicular pain 09963644 M54.10 [id number] He will hold his meloxicam while taking the medrol dose pack. Disorder o f left sciatic nerve [id number] 64584 M54.32 [id number] Ruthann Trejo MD Main Office [address] [facility] [address] [facility] [place] [address] 05/04/2025 13:35:26 05/04/2025 14:32:38 Disorder of left sciatic nerve [id number] 74016 M54.32 [id number] He is scheduled for an MRI on 05/25 (3 weeks from now) and a pain Mgmt appointmen t 05/[address] Israel. In the meantime we will do a tapering course of prednisone and he will continue with flexeril prn. Health Concerns Section Related Observation LastModified by Organization Detai ls LastModified Time None Recorded Concern Status LastModified by Organization Details LastModified Time None Recorded Payers Encounter Date Sequence Insurance Name Policy Number Policy Kebede Covered Member ID Kebede Member ID Guarantor Name 05/04/2025 1 [place] [facility] Toby Brasher [id number] Toby Brasher Notes Date Note Type Note Provider Name and Address Organization Details Recorded Time 05/04/2025 text/html ROS as noted in the HPI He continues to have left-sided pain that goes from his left buttocks to just below his left knee. He denies any pain or numbness in his left foot. No prior injury and the pain started in early February about 3 months ago. I initially thought it was from his mattress and bought a new mattress but this didn't help. He was also given scripts for meloxicam, medrol dose-pack and cyclobenzaprine. He felt that the meloxicam did not help but the steroid did. He also did PT w/o much help. He is scheduled for an MRI 05/25 and a Pain Mgmt appointment 05/28. Ruthann Trejo MD [address] [address], [place], [address], [facility] 05/04/2025 14:46:54
--- OUTSIDE RECORDS SUMMARY | 2025-05-28 15:07 | XMS_ITS | Data Portability ---
Author Organization [facility], Main Office Address [address] [facility] [address] [place] [address] Care Team Providers Care Loom Checker Name Role Phone RUTHANN TREJO Primary Care Provider SHAILA HERBERT Referring Provider [phone] [facility] Dentist RADHA MCCABE Dentist [facility]ICAL [facility]ERAP[facility] OTHER [facility] WHITMAN Infectious Disease RADHA FONTANA Hand Surgeon MIRIAM COLLADO Paving Foreman MAIK FONTANA Neurosurgeon [phone] LYNSEY RUBY General Surgeon [facility] (MATHEW HARRIS) Orthopedic Surgeon TED MARTINI Brick Handler ARMOND SCHREIBER Cable Reeler [phone] Assessment No assessment recorded. Plan of Treatment Reminders Order Date Submit Date Provider Last Modified By Organization Details Last Modified Time Details Appointments FOLLOW UP 30MIN 2025 01:00P M Ruthann matt MD Not available Not available Not available PE EST 2025 01:00P M Ruthann matt MD Not available Not available Not available Lab hemogl obin A1C, finger stick 2024 025 DIANNA In-Office Order, Internal Use Only DO Not Attach Compendium DO Not Attach Compendium, Do Not Delete/merge, [id number] 01/06/2025 13:46:48 lipid panel, serum 2024 025 DIANNA [facility] (Centralized Electronic Ordering - All Locations), Patient Can Go To The Location Of Their Choice, 10/08/2024 06:13:26 CMP, serum or plasma 2024 025 DIANNA [facility] (Centralized Electronic Ordering - All Locations), Patient Can Go To The Location Of Their Choice, 10/08/2024 06:13:25 CBC w/ auto diff 2024 025 DIANNA [facility] (Centralized Electronic Ordering - All Locations), Patient Can Go To The Location Of Their Choice, 10/08/2024 06:13:24 HbA1c (hemog lobin A1c), blood 2024 025 DIANNA [facility] (Centralized Electronic Ordering - All Locations), Patient Can Go To The Location Of Their Choice, 10/08/2024 06:13:26 Referral pain manage ment referr al - Back pain since early and now with radiat ion into left leg. 2024 025 MARIVEL Israel MD, [address] [facility], [address], [address], 04/14/2025 09:49:08 physic al therap ist referr al - Please see for LBP 2024 025 Not available 02/17/2025 15:07:14 sleep medici ne referr al - Had a dx in the past and had a sebas e but no longer and would like to be tested again. 2024 025 [email or web address] [facility], [address] [facility], [place], [address], 10/29/2024 11:54:21 bariat rochelle surger y referr al - BMI has been increa sing and is now >35. He has tried multip le diets over the years and has been unsucc essful either losing the weight and if he loses it he is unable to keep it off. 2024 025 lisette Johnson MD, [address] [address], [place], [address], 03/29/2025 08:41:53 Procedures None record ed. Surgeries None record ed. Imaging XR, lumbar spine - Low back pain with radiat ion into left leg/fo ot. R/o lesion 2024 025 DIANNA Not available 04/16/2025 11:58:59 MRI, lumbar spine, w/o contra st - Low back pain for 8 weeks. Doing PT which has not been helpfu l. Now with radiat ion into left leg. R/o stenos is. 2024 025 [email or web address] Not available 04/20/2025 08:24:17 LDCT, chest, for lung cancer screen ing - The patirufino t does not have lung cancer or signs of lung cancer at this time. -Sree nt has not had a chest CT in the last 12 months . *SHARE D DECISI ON MAKING * I have discus sed the benefi ts and risks of lung cancer screen ing in compli ance with [facility] shared decisi on making guidel ekta includ ing early detect ion, radiat ion exposu re, false negati ve rates, false positi ve rates, over-d iagnos is, incide ntal findin gs, impact of comorb iditie s and the abilit y or willin gness to underg o diagno sis and treatm ent if someth ing concer prieto is found. I have review ed with the patien t the import ance of abstin ence if a former smoker , and import ance of smokin g cessat ion if a curren t smoker . I have furnis hed the patirufino t with inform ation and resour gale availa ble to quit smokin g if approp riate. 2024 025 [email or web address] [facility], [address], [place], [address], 10/13/2024 13:21:20 Medication Orders predni sone 10 mg tablet 2024 025 [facility], [address] [place] [address], [id number], 05/04/2025 15:03:45 Medrol (Jarrod) 4 mg tablet s in a dose pack 2024 025 [facility], [address] [place] [address], [address], 04/26/2025 05:02:13 cyclob enzapr ine 10 mg tablet 2024 025 [facility], [address] [place] [address], [address], 04/13/2025 15:23:30 meloxi cam 15 mg tablet 2024 025 [facility], [address] [place] [address], [address], 04/13/2025 15:23:15 meloxi cam 15 mg tablet 2024 025 [facility], [address] [place] [address], [address], 03/18/2025 14:26:20 cyclob enzapr ine 10 mg tablet 2024 025 [facility], [address] [place] [address], [id number], 03/08/2025 11:37:53 amlodi pine 10 mg tablet 2024 025 [email or web address] [facility], [address] [place] [address], [address], 01/06/2025 13:38:17 triamc inolon e aceton virgil 0.1 % topica l cream 2024 025 [facility], [address] [place] [address], [address], 12/24/2024 12:49:22 Patient TargetsNo targets recorded. Patient Instructions Encounter Date Encounter Id Patient Instructions Last Modified By Organization Details Last Modified Time 09/29/2024 [id number] alcohol detoxification and withdrawal: care instructions [email or web address] Not available 09/29/2024 11:45:01 substance use disorder: care instructions [email or web address] Not available 09/29/2024 11:45:01 deciding about using medicines to quit smoking [email or web address] Not available 09/29/2024 11:45:01 Quitting Tobacco : Care Instructions [email or web address] Not available 09/29/2024 11:45:01 gastroesophageal reflux disease (GERD): care instructions [email or web address] Not available 09/29/2024 11:45:01 high cholesterol : care instructions acennerazzo Not available 09/29/2024 11:45:01 sleep apnea: car e instructions [email or web address] Not available 09/29/2024 11:45:01 high blood pressure: care instructions acennerazzo Not available 09/29/2024 11:45:01 learning about h igh blood pressure acennerazzo Not available 09/29/2024 11:45:01 body mass index: care instructions acennerazzo Not available 09/29/2024 11:49:25 learning about healthy weight acennerazzo Not available 09/29/2024 11:49:25 01/06/2025 [id number] alcohol detoxification and withdrawal: care instructions [email or web address] Not available 01/06/2025 13:55:07 substance use disorder: care instructions acennerazzo Not available 01/06/2025 13:55:07 learning about t ype 2 diabetes acennerazzo Not available 01/06/2025 13:38:17 type 2 diabetes: care instructions acennerazzo Not available 01/06/2025 13:38:17 02/17/2025 [id number] low back pain: exercises acennerazzo Not available 02/17/2025 15:05:11 Reason for Referral Sleep Medicine Referral for Obstructive sleep apnea syndrome Had a dx in the past and had a machine but no longer and would like to be tested again. Referring Physician: Ruthann Trejo, Family Medicine, Encounter Date: 09/29/2024 Bariatric Surgery Referral f or Body mass index 30+ - obesity BMI has been increasing and is now >35. He has tried multiple diets over the years and has been unsuccessful either losing the weight and if he loses it he is unable to keep it off. Referring Physician: Ruthann Trejo [facility], Encounter Date: 09/29/2024 Physical Therapist Referral for Acute low back pain Please see for LBP Referring Physician: Ruthann Trejo 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 Referring Physician: Ruthann Trejo [facility] Medicine, Encounter Date: 04/13/2025 Results Created Date Observation Date Name Description Value Unit Range Abnormal Flag Note LastModifiedBy Organization Detail LastModifiedTime 10/08/1910/08/2024 CBC WITH DIFFE RENTI AL/PL ATELE T WBC 4.1 x10e3 /uL 3.4-10 .8 normal Not Available [facility] ([facility]) [address] [place], [address], 10/08/2024 06:13:24 10/08/1910/08/2024 CBC WITH DIFFE RENTI AL/PL ATELE T RBC 4.54 x10e6 /uL 4.14-5 .80 normal Not Available [facility] ([facility]) [address] [place], [address], 10/08/2024 06:13:24 10/08/1910/08/2024 CBC WITH DIFFE RENTI AL/PL ATELE T hemoglobin 14.3 g/dL 13.0-1 7.7 normal Not Available [facility] ([facility]) [address] [place], [address], 10/08/2024 06:13:24 10/08/19 25 10/08/2024 CBC WITH DIFFE RENTI AL/PL ATELE T hematocrit 41.2 % 37.5-5 1.0 normal Not Available [facility] ([facility]) [address] [facility], [place], [address], 10/08/2024 06:13:24 10/08/1910/08/2024 CBC WITH DIFFE RENTI AL/PL ATELE T MCV 91 fL 79-97 normal Not Available [facility] ([facility]) [address] [facility], [place], [address], 10/08/2024 06:13:24 10/08/19 25 10/08/2024 CBC WITH DIFFE RENTI AL/PL ATELE T MCH 31.5 pg 26.6-3 3.0 normal Not Available [facility] ([facility]) [address] [facility], [place], [address], 10/08/2024 06:13:24 10/08/19 25 10/08/2024 CBC WITH DIFFE RENTI AL/PL ATELE T MCHC 34.7 g/dL 31.5-3 5.7 normal Not Available [facility] ([facility]) [address] [facility], [place], [address], 10/08/2024 06:13:24 10/08/1910/08/2024 CBC WITH DIFFE RENTI AL/PL ATELE T RDW 13.0 % 11.6-1 5.4 Not Available [facility] ([facility]) [address] [facility], [place], [address], 10/08/2024 06:13:24 10/08/1910/08/2024 CBC WITH DIFFE RENTI AL/PL ATELE T platelets 327 x10e3 /uL 150-45 0 normal Not Available [facility] ([facility]) [address] [place], [address], 10/08/2024 06:13:24 10/08/19 25 10/08/2024 CBC WITH DIFFE RENTI AL/PL ATELE T neutrophils 44 % not estab. normal Not Available [facility] ([facility]) [address] [facility], [place], [address], 10/08/2024 06:13:24 10/08/19 25 10/08/2024 CBC WITH DIFFE RENTI AL/PL ATELE T lymphs 39 % not estab. normal Not Available [facility] ([facility]) [address] [facility], [place], [address], 10/08/2024 06:13:24 10/08/19 25 10/08/2024 CBC WITH DIFFE RENTI AL/PL ATELE T monocytes 11 % not estab. normal Not Available [facility] ([facility]) [address] [facility], [place], [address], 10/08/2024 06:13:24 10/08/19 25 10/08/2024 CBC WITH DIFFE RENTI AL/PL ATELE T eos 5 % not estab. normal Not Available [facility] ([facility]) [address] [facility], [place], [address], 10/08/2024 06:13:24 10/08/19 25 10/08/2024 CBC WITH DIFFE RENTI AL/PL ATELE T basos 1 % not estab. normal Not Available [facility] ([facility]) [address] [facility], [place], [address], 10/08/2024 06:13:24 10/08/19 25 10/08/2024 CBC WITH DIFFE RENTI AL/PL ATELE T immature cells PAINT SPECIALIST Not Available [facility] ([facility]) [address] [facility], [place], [address], 10/08/2024 06:13:24 10/08/1910/08/2024 CBC WITH DIFFE RENTI AL/PL ATELE T neutrophils (absolute) 1.8 x10e3 /uL 1.4-7. 0 normal Not Available [facility] ([facility]) [address] [facility], [place], [address], 10/08/2024 06:13:24 10/08/19 25 10/08/2024 CBC WITH DIFFE RENTI AL/PL ATELE T lymphs (absolute) 1.6 x10e3 /uL 0.7-3. 1 normal Not Available [facility] ([facility]) [address] [facility], [place], [address], 10/08/2024 06:13:24 10/08/19 25 10/08/2024 CBC WITH DIFFE RENTI AL/PL ATELE T monocytes(ab solute) 0.5 x10e3 /uL 0.1-0. 9 normal Not Available [facility] ([facility]) [address] [facility], [place], [address], 10/08/2024 06:13:24 10/08/19 25 10/08/2024 CBC WITH DIFFE RENTI AL/PL ATELE T eos (absolute) 0.2 x10e3 /uL 0.0-0. 4 normal Not Available [facility] ([facility]) [address] [facility], [place], [address], 10/08/2024 06:13:24 10/08/19 25 10/08/2024 CBC WITH DIFFE RENTI AL/PL ATELE T baso (absolute) 0.0 x10e3 /uL 0.0-0. 2 normal Not Available [facility] ([facility]) [address] [place], [address], 10/08/2024 06:13:24 10/08/19 25 10/08/2024 CBC WITH DIFFE RENTI AL/PL ATELE T immature granulocytes 0 % not estab. Not Available [facility] ([facility]) [address] [place], [address], 10/08/2024 06:13:24 10/08/19 25 10/08/2024 CBC WITH DIFFE RENTI AL/PL ATELE T immature grans (abs) 0.0 x10e3 /uL 0.0-0. 1 Not Available [facility] ([facility]) [address], [place], [address], 10/08/2024 06:13:24 10/08/19 25 10/08/2024 CBC WITH DIFFE RENTI AL/PL ATELE T NRBC PAINT SPECIALIST Not Available [facility] ([facility]) [address], [place], [address], 10/08/2024 06:13:24 10/08/19 25 10/08/2024 CBC WITH DIFFE RENTI AL/PL ATELE T hematology comments: PAINT SPECIALIST Not Available [facility] ([facility]) [address], [place], [address], 10/08/2024 06:13:24 10/08/19 25 10/07/2024 COMP. METAB OLIC PANEL (14) glucose 111 mg/dL 70-99 above high normal Not Available [facility] ([facility]) [address], [place], [address], 10/08/2024 06:13:25 10/08/19 25 10/07/2024 COMP. METAB OLIC PANEL (14) BUN 15 mg/dL 6-24 normal Not Available [facility] ([facility]) [address], [place], [address], 10/08/2024 06:13:25 10/08/19 25 10/07/2024 COMP. METAB OLIC PANEL (14) creatinine 1.03 mg/dL 0.76-1 .27 normal Not Available [facility] ([facility]) [address], [place], [address], 10/08/2024 06:13:25 10/08/19 25 10/07/2024 COMP. METAB OLIC PANEL (14) eGFR 85 mL/mi n/1.7 3 >59 normal Not Available [facility] ([facility]) [address], [place], [address], 10/08/2024 06:13:25 10/08/19 25 10/07/2024 COMP. METAB OLIC PANEL (14) BUN/creatini ne ratio 15 9-20 normal Not Available [facility] ([facility]) [address] [place] [place], [address], 10/08/2024 06:13:25 10/08/19 25 10/07/2024 COMP. METAB OLIC PANEL (14) sodium 139 mmol/ L 134-14 4 normal Not Available [facility] ([facility]) [address] [place] [place], [address], 10/08/2024 06:13:25 10/08/19 25 10/07/2024 COMP. METAB OLIC PANEL (14) potassium 4.4 mmol/ L 3.5-5. 2 normal Not Available [facility] ([facility]) [address] [facility], [place], [address], 10/08/2024 06:13:25 10/08/19 25 10/07/2024 COMP. METAB OLIC PANEL (14) chloride 102 mmol/ L 96-106 normal Not Available [facility] ([facility]) [address] [place], [address], 10/08/2024 06:13:25 10/08/19 25 10/07/2024 COMP. METAB OLIC PANEL (14) carbon dioxide, total 23 mmol/ L 20-29 normal Not Available [facility] ([facility]) [address] [place], [address], 10/08/2024 06:13:25 10/08/19 25 10/07/2024 COMP. METAB OLIC PANEL (14) calcium 9.3 mg/dL 8.7-10 .2 normal Not Available [facility] ([facility]) [address] [place], [address], 10/08/2024 06:13:25 10/08/19 25 10/07/2024 COMP. METAB OLIC PANEL (14) protein, total 7.1 g/dL 6.0-8. 5 normal Not Available [facility] ([facility]) [address] [place], [address], 10/08/2024 06:13:25 10/08/19 25 10/07/2024 COMP. METAB OLIC PANEL (14) albumin 4.2 g/dL 3.8-4. 9 normal Not Available [facility] ([facility]) [address] [facility] [place], [address], 10/08/2024 06:13:25 10/08/19 25 10/07/2024 COMP. METAB OLIC PANEL (14) globulin, total 2.9 g/dL 1.5-4. 5 Not Available [facility] ([facility]) [address] [place], [address], 10/08/2024 06:13:25 10/08/19 25 10/07/2024 COMP. METAB OLIC PANEL (14) bilirubin, total 0.4 mg/dL 0.0-1. 2 normal Not Available [facility] ([facility]) [address] [facility] [place], [address], 10/08/2024 06:13:25 10/08/19 25 10/07/2024 COMP. METAB OLIC PANEL (14) alkaline phosphatase 121 IU/L 44-121 normal Not Available [facility] ([facility]) [address] [facility] [place], [address], 10/08/2024 06:13:25 10/08/19 25 10/07/2024 COMP. METAB OLIC PANEL (14) AST (SGOT) 24 IU/L 0-40 normal Not Available [facility] ([facility]) [address] [facility] [place], [address], 10/08/2024 06:13:25 10/08/19 25 10/07/2024 COMP. METAB OLIC PANEL (14) ALT (SGPT) 25 IU/L 0-44 normal Not Available [facility] ([facility]) [address] [place], [address], 10/08/2024 06:13:25 10/08/19 25 10/07/2024 LIPID PANEL triglyceride s 139 mg/dL 0-149 normal Not Available [facility] ([facility]) [address] [place], [address], 10/08/2024 06:13:25 10/08/19 25 10/08/2024 LIPID PANEL cholesterol, total 171 mg/dL 100-19 9 normal Not Available [facility] ([facility]) [address] [place], [address], 10/08/2024 06:13:25 10/08/19 25 10/08/2024 LIPID PANEL HDL cholesterol 46 mg/dL >39 normal Not Available [facility] ([facility]) [address] [place], [address], 10/08/2024 06:13:25 10/08/19 25 10/08/2024 LIPID PANEL VLDL cholesterol kati 25 mg/dL 5-40 Not Available [facility] ([facility]) [address] [place], [address], 10/08/2024 06:13:25 10/08/19 25 10/08/2024 LIPID PANEL LDL chol calc ([facility]) 100 mg/dL 0-99 above high normal Not Available [facility] ([facility]) [address] [place], [address], 10/08/2024 06:13:25 10/08/19 25 10/08/2024 LIPID PANEL LDL calc comment: PAINT SPECIALIST Not Available [facility] ([facility]) [address] [place], [address], 10/08/2024 06:13:25 10/08/19 25 10/08/2024 HEMOG LOBIN A1C hemoglobin A1C 6.2 % 4.8-5. 6 above high normal Predi abete s: 5.7 - 6.4 Diabe liberty: >6.4 Glyce jasmine contr ol for adult s with diabe liberty: <7.0 Not Available [facility] ([facility]) [address] [facility], [place], [address], 10/08/2024 06:13:26 01/07/20 25 01/06/2025 hemog lobin A1C, finge rstic k A1C 5.9 % 4-6 normal Not Available In-Office Order Internal Use Only DO Not Attach Compendium DO Not Attach Compendium, Do Not Delete/merge, [id number] 01/06/2025 13:38:11 04/16/2004/14/2025 XR, lumba r spine Lumbar Spine [...] of lumbar verteb ral fractu re. WSN: [id number] Orderi ng Physic negro: Ruthann Vazquez Dictat ed By: Rosalba Wagner ra, MD Dictat ed Date/T erica: 11:55 a Review ed By: Rosalba Wagner ra, MD Signed By: Rosalba Wagner ra, MD Signed Date/T erica: 11:55 am Transc ribed By: RONNIE Transc ribed Date/T erica: 11:51 am Patien t Class: Outpat ient [facility] (Outpt Imaging) [address] [place], [address], 04/16/2025 12:14:44 05/27/20 25 05/25/2025 MRI, lumba [...] L4 nerve root at this level. WSN: [id number] Orderi ng Physic negro: Ruthann Vazquez Dictat ed By: Malini Crenshaw MD Dictat ed Date/T erica: 2:50 pm Review ed By: Malini Crenshaw MD Signed By: Malini Crenshaw MD Signed Date/T erica: 2:50 pm Transc ribed By: RONNIE Transc ribed Date/T erica: 2:43 pm Patien t Class: Outpat ient INTERFACE [facility] (Outpt Imaging) [address] [place] [address], [address], 05/27/2025 14:55:30 Result Notes Documentation Provider Name and Address Organization Details Recorded Time Xr, Lumbar Spine : Lumbar Spine 2 or 3 Views Reason: low back pain COMPARISON: None. FINDINGS: No bone lesions or fractures. Mild multifocal degenerative disc endplate spurring and disc space narrowing. Grade 1 anterolisthesis of L4 on L5. Normal soft tissues. IMPRESSION: Mild degenerative change of the lumbar spine with no radiographic evidence of lumbar vertebral fracture. WSN: [id number] Ordering Physician: Ruthann Trejo Dictated By: Rosalba Woods MD Dictated Date/Time: 04/16/25 11:55 a Reviewed By: Rosalba Woods MD Signed By: Rosalba Woods MD Signed Date/Time: 04/16/25 11:55 am Transcribed By: RONNIE Transcribed Date/Time: 04/16/25 11:51 am Patient Class: Outpatient Ruthann Trejo MD [address] [address], [place], [address], [facility] 04/16/2025 12:14:44 Mri, Lumbar Spine, W/o Contrast : MRI Lumbar Spine W/O Contrast INDICATION: Reason: M54.10; Clinical Question(s): Other: - TECHNIQUE: Multiplanar, multisequence MRI of the lumbar spine was performed without contrast. COMPARISON: Lumbar spine radiographs 04/14/2025. FINDINGS: LOCALIZER: No additional findings on limited localizer images. NUMBERING: The study assumes 5 [id number]-hykvgzu lumbar type vertebral bodies. ALIGNMENT, VERTEBRAE, MARROW, AND DISCS: Subtle anterolisthesis of L4 on L5. Otherwise, alignment is normal. Vertebral body heights are preserved. Minimal Modic type I signal changes at T11-T12, L3-L4, and L4-L5. Multilevel facet arthropathy with associated degenerative/reactive marrow signal changes at L4-L5 bilaterally. Disc desiccation at T11-T12, L3-L4, and L4-L5 with loss of intervertebral disc height at these levels. Otherwise, the intervertebral discs are maintained. CONUS: The conus is normal in signal and contour, with normal level of termination at T12-L1. PARASPINAL TISSUES: The paraspinal soft tissues are unremarkable. DETAILED FINDINGS BY LEVEL: T12-L1: No significant canal stenosis or neural foraminal narrowing. L1-L2: No significant canal stenosis or neural foraminal narrowing. L2-L3: Subtle disc bulge. No significant canal stenosis. Mild bilateral neural foraminal narrowing. L3-L4: Diffuse disc bulge. Facet spurring. No significant canal stenosis. Mild bilateral neural foraminal narrowing. L4-L5: Diffuse disc bulge, ligamentum flavum thickening, and advanced facet arthropathy with bilateral facet joint effusions and reactive marrow signal changes as above. Mild canal stenosis. Moderate left and moderate to severe right neural foraminal narrowing crowding of the exiting right L4 nerve root. L5-S1: Facet arthropathy. No significant canal stenosis or neural foraminal narrowing. IMPRESSION: Degenerative changes of the lumbar spine as above which are most advanced at L4-L5. Moderate to severe right neural foraminal narrowing with crowding of the exiting right L4 nerve root at this level. WSN: [id number] Ordering Physician: Ruthann Trejo Dictated By: Malini Diaz MD Dictated Date/Time: 05/27/25 2:50 pm Reviewed By: Malini Diaz MD Signed By: Malini Diaz MD Signed Date/Time: 05/27/25 2:50 pm Transcribed By: RONNIE Transcribed Date/Time: 05/27/25 2:43 pm Patient Class: Outpatient Not Available [facility] 05/27/2025 14:55:30 Problems Name Problem SNOMED Code Status Onset Date Resolution Date Notes Provider Name and Address Organization Details Recorded Time Fracture of two ribs 51601463 Active [employer] [facility], [facility] 0 13:52:52 Pityrias is versicol or 37833905 Active Kelly [employer] null, [facility] 0 13:52:52 Hearing loss 45075796 Active [employer] [facility], [facility] 0 13:52:52 Human immunode ficiency virus enteropa thy 878828639 Active Mery Gao null, [facility] 0 09:57:02 Asymptom atic human immunode ficiency virus infectio n 31222688 Active 1990 Kelly Money null, [facility] 0 13:52:52 Administ ration of bacteria l and viral vaccine Completed 200701/14/2014 RECORDED 02/17/20 08 3:08PM BY KAVYA GRANADOS, OFFICE VISIT Ruthann matt MD [address], [phone], [facility] 6 19:06:01 Administ ration of bacteria l and viral vaccine Completed 200701/15/2014 RECORDED 02/17/20 08 3:08PM BY KAVYA GRANADOS, OFFICE VISIT Ruthann matt MD [address], [phone], [facility] 6 19:06:01 Administ ration of bacteria l and viral vaccine Completed 200712/22/2013 RECORDED 02/17/20 08 3:08PM BY KAVYA GRANADOS, OFFICE VISIT Ruthann matt MD [address] [facility] [address], [place], [address], [facility] [place] 6 19:06:01 Eruption [id number] Completed 200801/14/2014 RECORDED 02/02/20 09 9:42AM BY AZUCENA COBB ON/ADDEN DUM Ruthann matt MD [address] [facility] [address], [place], [address], [facility] [place] 6 19:06:01 Eruption [id number] Completed 200801/15/2014 RECORDED 02/02/20 09 9:42AM BY AZUCENA COBB ON/ADDEN MARY matt MD [address] [facility] [address], [place], [address], [facility] [place] 6 19:06:01 Eruption [id number] Completed 200812/22/2013 RECORDED 02/02/20 09 9:42AM BY AZUCENA COBB ON/ADDEN DUM Ruthann matt MD [address] [facility] [address], [place], [address], [facility] [place] 6 19:06:01 Influenz a vaccine needed [id number] 06 Completed 200901/14/2014 RECORDED 06/29/19 10 10:39AM BY RUTHANN SADLER MD, OFFICE VISIT Ruthann matt MD [address], [place], [address], [facility] [place] 6 19:06:01 Influenz a vaccine needed [id number] 06 Completed 200901/15/2014 RECORDED 06/29/19 10 10:39AM BY RUTHANN SADLER MD, OFFICE VISIT Ruthann matt MD [address] [facility] [address], [place], [address], [facility] [place] 6 19:06:01 Influenz a vaccine needed [id number] 06 Completed 200912/22/2013 RECORDED 06/29/19 10 10:39AM BY RUTHANN SADLER MD, OFFICE VISIT Ruthann matt MD [address], [facility] [place], [address], [facility] [place] 6 19:06:01 Allergic rhinitis [id number] Completed 200901/14/2014 RECORDED 05/02/20 10 1:28PM BY PRANEETH SKY, ANNOTATI ON/ADDEN DUM Ruthann matt MD [address], [facility] [place], [address], [facility] [place] 7 14:14:34 Allergic rhinitis 73674625 Completed 200901/15/2014 RECORDED 05/02/20 10 1:28PM BY PRANEETH SKY, ANNOTATI ON/ADDEN DUM Ruthann matt MD [address], [facility] [place], [address], [facility] [place] 7 14:14:34 Allergic rhinitis 88212084 Completed 200912/22/2013 RECORDED 05/02/20 10 1:28PM BY PRANEETH SKY, ANNOTATI ON/ADDEN DUM Ruthann matt MD [address] [facility] [address], [facility] [place], [address], [facility] [place] 7 14:14:34 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 Followed by Dr Modi. On lifelong Coumadin . Kelly warren, [facility] 0 13:52:52 Abdomina l pain [id number] Completed 201101/14/2014 IMPRESSI ON: X 10 DAYS, WITH FAILURE TO MOVE BOWELS. NO EFFECT WITH ENEMAS AND OTC LAXATIVE S. STAT ABDO XRAY APPEARS NEG. I HAVE CONCERN REGARDIN G HIS HIGH LEVEL OF DISCOMFO RT, LACK OF RESPONSE TO MULTIPLE ENEMAS AND OTC LAXATIVE S. DISCUSSE D OPTIONS, ELECTED TO SEEK IMMEDIAT E TX/W/U VIA ER AT [facility] [place]. CALLED IN EXPECT.; RECORDED 01/10/20 12 10:20AM BY AZUCENA FULLER ON/DAVID matt MD [address] [facility] [address], [facility] [place], [address], [facility] [place] 6 19:06:01 Left upper quadrant pain [id number] Completed 201101/14/2014 RECORDED 01/10/20 12 10:20AM BY AZUCENA FULLER/DAVID matt MD [address] [address], [facility] [place], [address], [facility] [place] 6 19:06:01 Chronic allergic conjunct ivitis 04583606 Completed 201101/14/2014 RECORDED 01/10/20 12 10:20AM BY AZUCENA FULLER/DAVID matt MD [address] [address], [place], [address], [facility] [place] 6 19:06:01 Acute asthma [id number] Completed 201101/14/2014 IMPRESSI ON: MILD; RECORDED 01/10/20 12 10:20AM BY AZUCENA FULLER ON/DAVID matt MD [address] [facility] [address], [facility] [place], [address], [facility] [place] 6 19:06:01 Digestiv e symptom [id number] Completed 201101/14/2014 RECORDED 01/10/20 12 10:20AM BY AZUCENA FULLER/DAVID matt MD [address] [address], [place], [address], [facility] [place] 6 19:06:01 Bronchit is [id number] Completed 201101/14/2014 RECORDED 01/10/20 12 10:20AM BY AZUCENA FULLER ON/DAVID matt MD [address] [facility] [address], [place], [address], [facility] [place] 6 19:06:01 Pain in limb 92906491 Completed 201101/14/2014 RECORDED 01/10/20 12 10:20AM BY AZUCENA FULLER ON/DAVID matt MD [address] [facility] [address], [place], [address], [facility] [place] 6 19:06:01 Conjunct ivitis [id number] Completed 201101/14/2014 IMPRESSI ON: SEE OTHER MESSAGE; RECORDED 01/10/20 12 10:20AM BY AZUCENA FULLER/DAVID matt MD [address] [facility] [address], [place], [address], [facility] [place] 6 19:06:01 Counseli ng Completed 201101/14/2014 IMPRESSI ON: RE COUMADIN MONITORI NG, DIET. DUE FOR REPEAT PT/INR TODAY, THEN AGAIN SATURDAY. 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 PT WE CONTINUE TO FOLLOW TO THERAPEU TIC LEVEL AND THEN W/REG MONITORI NG.; RECORDED 01/10/20 12 10:20AM BY AZUCENA FULLER/DAVID matt MD [address] [facility] [address], [place], [address], [facility] [place] 6 19:06:01 Function al visual loss [id number] Completed 201101/14/2014 RECORDED 01/10/20 12 10:20AM BY AZUCENA FULLER ON/DAVID matt MD [address] [facility] [address], [place], [address], [facility] [place] 6 19:06:01 Abnormal weight gain 031083716 Completed 201101/14/2014 RECORDED 01/10/20 12 10:20AM BY AZUCENA FULLER ON/DAVID matt MD [address] [facility] [address], [facility] [place], [address], [facility] [place] 6 19:06:01 Hearing loss 75620499 Completed 201101/14/2014 RECORDED 01/10/20 12 10:20AM BY AZUCENA FULLER ON/DAVID matt MD [address] [facility] [address], [facility] [place], [address], [facility] [place] 6 19:06:01 Immunode ficiency disorder [id number] Completed 201101/14/2014 RECORDED 01/10/20 12 10:20AM BY AZUCENA FULLER ON/DAVID matt MD [address] [facility] [address], [facility] [place], [address], [facility] [place] 6 19:06:01 Disorder of upper respirat ory system Completed 201101/14/2014 RECORDED 01/10/20 12 10:20AM BY AZUCENA FULLER ON/DAVID matt MD [address] [facility] [address], [place], [address], [facility] [place] 6 19:06:01 Breast finding [id number] Completed 201101/14/2014 RECORDED 01/10/20 12 10:20AM BY AZUCENA FULLER ON/DAVID matt MD [address] [facility] [address], [place], [address], [facility] [place] 6 19:06:01 Abnormal ity of systemic vein Completed 201101/14/2014 RECORDED 01/10/20 12 10:20AM BY AZUCENA FULLER ON/DAVID matt MD [address] [facility] [address], [place], [address], [facility] [place] 6 19:06:01 Shoulder joint pain [id number] Completed 201101/14/2014 RECORDED 01/10/20 12 10:20AM BY AZUCENA FULLER ON/DAVID matt MD [address] [facility] [address], [place], [address], [facility] [place] 6 19:06:01 Phlebiti s and thrombop hlebitis Completed 201101/14/2014 RECORDED 01/10/20 12 10:20AM BY AZUCENA FULLER ON/DAVID matt MD [address] [facility] [address], [place], [address], [facility] [place] 6 19:06:01 Abdomina l pain [id number] Completed 201101/15/2014 IMPRESSI ON: X 10 DAYS, WITH FAILURE TO MOVE BOWELS. NO EFFECT WITH ENEMAS AND OTC LAXATIVE S. STAT ABDO XRAY APPEARS NEG. I HAVE CONCERN REGARDIN G HIS HIGH LEVEL OF DISCOMFO RT, LACK OF RESPONSE TO MULTIPLE ENEMAS AND OTC LAXATIVE S. DISCUSSE D OPTIONS, ELECTED TO SEEK IMMEDIAT E TX/W/U VIA ER AT [facility]. CALLED IN EXPECT.; RECORDED 01/10/20 12 10:20AM BY AZUCENA FULLER ON/DAVID matt MD [address] [facility] [address], [place], [address], [facility] [place] 6 19:06:01 Left upper quadrant pain [id number] Completed 201101/15/2014 RECORDED 01/10/20 12 10:20AM BY AZUCENA FULLER ON/DAVID matt MD [address], [facility] [place], [address], [facility] [place] 6 19:06:01 Chronic allergic conjunct ivitis [id number] Completed 201101/15/2014 RECORDED 01/10/20 12 10:20AM BY AZUCENA FULLER ON/DAVID matt MD [address], [facility] [place], [address], [facility] [place] 6 19:06:01 Acute asthma [id number] Completed 201101/15/2014 IMPRESSI ON: MILD; RECORDED 01/10/20 12 10:20AM BY AZUCENA FULLER ON/DAVID matt MD [address], [place], [address], [facility] [place] 6 19:06:01 Digestiv e symptom 725388486 Completed 201101/15/2014 RECORDED 01/10/20 12 10:20AM BY AZUCENA FULLER ON/DAVID matt MD [address], [place], [address], [facility] [place] 6 19:06:01 Bronchit is [id number] Completed 201101/15/2014 RECORDED 01/10/20 12 10:20AM BY AZUCENA FULLER ON/DAVID matt MD [address], [place], [address], [facility] [place] 6 19:06:01 Pain in limb 77009016 Completed 201101/15/2014 RECORDED 01/10/20 12 10:20AM BY AZUCENA FULLER ON/DAVID matt MD [address] [facility] [address], [facility] [place], [address], [facility] [place] 6 19:06:01 Conjunct ivitis 6850544 Completed 201101/15/2014 IMPRESSI ON: SEE OTHER MESSAGE; RECORDED 01/10/20 12 10:20AM BY AZUCENA FULLER ON/DAVID matt MD [address] [facility] [address], [facility], [address], [facility] [place] 6 19:06:01 Counseli ng Completed 201101/15/2014 IMPRESSI ON: RE COUMADIN MONITORI NG, DIET. DUE FOR REPEAT PT/INR TODAY, THEN AGAIN SATURDAY. 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 ATION WITH PT WE CONTINUE TO FOLLOW TO THERAPEU TIC LEVEL AND THEN W/REG MONITORI NG.; RECORDED 01/10/20 12 10:20AM BY AZUCENA FULLER ON/DAVID matt MD [address] [facility] [address], [place], [address], [facility] [place] 6 19:06:01 Function al visual loss [id number] Completed 201101/15/2014 RECORDED 01/10/20 12 10:20AM BY AZUCENA FULLER ON/DAVID matt MD [address] [facility] [address], [facility], [address], [facility] [place] 6 19:06:01 Abnormal weight gain 106406475 Completed 201101/15/2014 RECORDED 01/10/20 12 10:20AM BY AZUCENA FULLER/DAVID matt MD [address], [place], [address], [facility] [place] 6 19:06:01 Hearing loss 89136431 Completed 201101/15/2014 RECORDED 01/10/20 12 10:20AM BY AZUCENA FULLER/DAVID matt MD [address] [facility] [address], [place], [address], [facility] [place] 6 19:06:01 Immunode ficiency disorder [id number] Completed 201101/15/2014 RECORDED 01/10/20 12 10:20AM BY AZUCENA FULLER ON/DAVID matt MD [address] [facility] [address], [place], [address], [facility] [place] 6 19:06:01 Disorder of upper respirat ory system Completed 201101/15/2014 RECORDED 01/10/20 12 10:20AM BY AZUCENA FULLER/DAVID matt MD [address] [facility] [address], [place], [address], [facility] [place] 6 19:06:01 Breast finding [id number] Completed 201101/15/2014 RECORDED 01/10/20 12 10:20AM BY AZUCENA FULLER ON/DAVID matt MD [address] [facility] [address], [place], [address], [facility] [place] 6 19:06:01 Abnormal ity of systemic vein Completed 201101/15/2014 RECORDED 01/10/20 12 10:20AM BY AZUCENA FULLER/DAVID matt MD [address] [facility] [address], [place], [address], [facility] [place] 6 19:06:01 Shoulder joint pain [id number] Completed 201101/15/2014 RECORDED 01/10/20 12 10:20AM BY AZUCENA FULLER ON/DAVID matt MD [address] [facility] [address], [facility] [place], [address], [facility] [place] 6 19:06:01 Phlebiti s and thrombop hlebitis Completed 201101/15/2014 RECORDED 01/10/20 12 10:20AM BY AZUCENA FULLER ON/DAVID matt MD [address] [facility] [address], [place], [address], [facility] [place] 6 19:06:01 Abdomina l pain [id number] Completed 201112/22/2013 IMPRESSI ON: X 10 DAYS, WITH FAILURE TO MOVE BOWELS. NO EFFECT WITH ENEMAS AND OTC LAXATIVE S. STAT ABDO XRAY APPEARS NEG. I HAVE CONCERN REGARDIN G HIS HIGH LEVEL OF DISCOMFO RT, LACK OF RESPONSE TO MULTIPLE ENEMAS AND OTC LAXATIVE S. DISCUSSE D OPTIONS, ELECTED TO SEEK IMMEDIAT E TX/W/U VIA ER AT [facility]. CALLED IN EXPECT.; RECORDED 01/10/20 12 10:20AM BY AZUCENA FULLER ON/DAVID matt MD [address] [facility] [address], [place], [address], [facility] [place] 6 19:06:01 Left upper quadrant pain [id number] Completed 201112/22/2013 RECORDED 01/10/20 12 10:20AM BY AZUCENA FULLER ON/DAVID matt MD [address] [facility] [address], [place], [address], [facility] [place] 6 19:06:01 Chronic allergic conjunct ivitis 85623759 Completed 201112/22/2013 RECORDED 01/10/20 12 10:20AM BY AZUCENA FULLER ON/DAVID matt MD [address] [facility] [address], [place], [address], [facility] [place] 6 19:06:01 Acute asthma [id number] Completed 201112/22/2013 IMPRESSI ON: MILD; RECORDED 01/10/20 12 10:20AM BY AZUCENA FULLER ON/DAVID matt MD [address] [facility] [address], [facility], [address], [facility] [place] 6 19:06:01 Digestiv e symptom 423780319 Completed 201112/22/2013 RECORDED 01/10/20 12 10:20AM BY AZUCENA FULLER ON/DAVID matt MD [address] [facility] [address], [facility] [place], [address], [facility] [place] 6 19:06:01 Bronchit is [id number] Completed 201112/22/2013 RECORDED 01/10/20 12 10:20AM BY AZUCENA FULLER ON/DAVID matt MD [address] [facility] [address], [facility] [place], [address], [facility] [place] 6 19:06:01 Pain in limb 13308627 Completed 201112/22/2013 RECORDED 01/10/20 12 10:20AM BY AZUCENA FULLER ON/DAVID matt MD [address] [facility] [address], [facility] [place], [address], [facility] [place] 6 19:06:01 Conjunct ivitis [id number] Completed 201112/22/2013 IMPRESSI ON: SEE OTHER MESSAGE; RECORDED 01/10/20 12 10:20AM BY AZUCENA FULLER ON/DAVID matt MD [address] [facility] [address], [place], [address], [facility] [place] 6 19:06:01 Counseli ng Completed 201112/22/2013 IMPRESSI ON: RE COUMADIN MONITORI NG, DIET. DUE FOR REPEAT PT/INR TODAY, THEN AGAIN SATURDAY. 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 PT WE CONTINUE TO FOLLOW TO THERAPEU TIC LEVEL AND THEN W/REG MONITORI NG.; RECORDED 01/10/20 12 10:20AM BY AZUCENA FULLER ON/DAVID matt MD [address] [facility] [address], [place], [address], [facility] [place] 6 19:06:01 Function al visual loss 201149609 Completed 201112/22/2013 RECORDED 01/10/20 12 10:20AM BY AZUCENA FULLER ON/DAVID matt MD [address] [facility] [address], [place], [address], [facility] [place] 6 19:06:01 Abnormal weight gain 928731658 Completed 201112/22/2013 RECORDED 01/10/20 12 10:20AM BY AZUCENA FULLER ON/DAVID matt MD [address] [facility] [address], [place], [address], [facility] 6 19:06:01 Hearing loss 99650351 Completed 201112/22/2013 RECORDED 01/10/20 12 10:20AM BY AZUCENA FULLER ON/DAVID matt MD [address] [facility] [address], [place], [address], [facility] 6 19:06:01 Immunode ficiency disorder 697942435 Completed 201112/22/2013 RECORDED 01/10/20 12 10:20AM BY AZUCENA FULLER ON/DAVID matt MD [address], [place], [address], [facility] [place] 6 19:06:01 Disorder of upper respirat ory system Completed 201112/22/2013 RECORDED 01/10/20 12 10:20AM BY AZUCENA FULLER/DAVID matt MD [address] [facility] [address], [place], [address], [facility] [place] 6 19:06:01 Breast finding [id number] Completed 201112/22/2013 RECORDED 01/10/20 12 10:20AM BY AZUCENA FULLER ON/DAVID matt MD [address], [place], [address], [facility] [place] 6 19:06:01 Abnormal ity of systemic vein Completed 201112/22/2013 RECORDED 01/10/20 12 10:20AM BY AZUCENA FULLER/DAVID matt MD [address], [place], [address], [facility] [place] 6 19:06:01 Shoulder joint pain 161492190 Completed 201112/22/2013 RECORDED 01/10/20 12 10:20AM BY AZUCENA FULLER/DAVID matt MD [address] [facility] [address], [place], [address], [facility] [place] 6 19:06:01 Phlebiti s and thrombop hlebitis Completed 201112/22/2013 RECORDED 01/10/20 12 10:20AM BY CAMRON FULLERATI ON/DAVID matt MD [address] [address], [place], [address], [facility] [place] 6 19:06:01 Acute pharyngi tis [id number] Completed 201101/14/2014 IMPRESSI ON: RAPID STREP NEGATIVE , C/W VIRAL INFECTIO N, RECOMMEN D SUPPORTI VE TREATMEN T.; RECORDED 04/14/20 12 11:30AM BY CAMRON FULLERATI ON/DAVID matt MD [address] [address], [place], [address], [facility] [place] 6 19:06:01 Acute pharyngi tis 067892695 Completed 201101/15/2014 IMPRESSI ON: RAPID STREP NEGATIVE , C/W VIRAL INFECTIO N, RECOMMEN D SUPPORTI VE TREATMEN T.; RECORDED 04/14/20 12 11:30AM BY AZUCENA FULLER ON/DAVID matt MD [address] [address], [place], [address], [facility] [place] 6 19:06:01 Acute pharyngi tis 032349976 Completed 201112/22/2013 IMPRESSI ON: RAPID STREP NEGATIVE , C/W VIRAL INFECTIO N, RECOMMEN D SUPPORTI VE TREATMEN T.; RECORDED 04/14/20 12 11:30AM BY CAMRON FULLERATI ON/DAVID matt MD [address] [address], [place], [address], [facility] [place] 6 19:06:01 Depressi ve disorder 72729745 Completed 201201/14/2014 RECORDED 07/09/19 13 1:05AM BY QUIN RODRIGUEZ MA, AZUCENA ON/ADDEN MARY matt MD [address] [facility] [address], [place], [address], [facility] [place] 6 19:06:01 Onychomy cosis due to dermatop hyte 449590524 Completed 201201/14/2014 RECORDED 07/09/19 13 1:06AM BY AZUCENA FULLER ON/ADDEN MARY matt MD [address] [facility] [address], [place], [address], [facility] [place] 6 19:06:01 Depressi ve disorder 97118371 Completed 201201/15/2014 RECORDED 07/09/19 13 1:05AM BY QUIN RODRIGUEZ MA, AZUCENA ON/LUCRECIAEN MARY matt MD [address] [facility] [address], [place], [address], [facility] [place] 6 19:06:01 Onychomy cosis due to dermatop hyte 274209537 Completed 201201/15/2014 RECORDED 07/09/19 13 1:06AM BY AZUCENA FULLER ON/LUCRECIAEN MARY matt MD [address] [facility] [address], [place], [address], [facility] [place] 6 19:06:01 Depressi ve disorder 29337070 Completed 201212/22/2013 RECORDED 07/09/19 13 1:05AM BY QUIN RODRIGUEZ MA, AZUCENA ON/DAVID matt MD [address] [facility] [address], [place], [address], [facility] 6 19:06:01 Onychomy cosis due to dermatop hyte 859794391 Completed 201212/22/2013 RECORDED 07/09/19 13 1:06AM BY AZUCENA FULLER ON/DAVID matt MD [address], [place], [address], [facility] 6 19:06:01 Knee pain Completed 201201/14/2014 RECORDED 07/15/19 13 11:37AM BY AZUCENA FULLER ON/ADDEN MARY matt MD [address], [facility] [place], [address], [facility] [place] 6 19:06:01 Renewal of prescrip tion Completed 201201/14/2014 RECORDED 07/15/19 13 11:37AM BY AZUCENA FULLER ON/DAVID matt MD [address], [place], [address], [facility] [place] 6 19:06:01 Knee pain Completed 201201/15/2014 RECORDED 07/15/19 13 11:37AM BY AZUCENA FULLER ON/DAVID matt MD [address], [place], [address], [facility] [place] 6 19:06:01 Renewal of prescrip tion Completed 201201/15/2014 RECORDED 07/15/19 13 11:37AM BY AZUCENA FULLER ON/LUCRECIAEN MARY matt MD [address], [place], [address], [facility] 6 19:06:01 Knee pain Completed 201212/22/2013 RECORDED 07/15/19 13 11:37AM BY AZUCENA FULLER ON/DAVID matt MD [address], [place], [address], [facility] [place] 6 19:06:01 Renewal of prescrip tion Completed 201212/22/2013 RECORDED 07/15/19 13 11:37AM BY AZUCENA FULLER/DAVID matt MD [address] [facility] [address], [place], [address], [facility] 6 19:06:01 Abscess of eyelid [id number] Completed 201201/14/2014 IMPRESSI ON: WILL FIND HOW TO GET HIM AN EYE DR APPT OR BE EVALUATE D URGENTLY SOMEWHER E. PT ALSO EXAMINED BY DR. RUPERT Perez; RECORDED 11/25/19 13 12:54PM BY AZUCENA FULLER/DAVID matt MD [address] [facility] [address], [place], [address], [facility] [place] 6 19:06:01 Abscess of eyelid [id number] Completed 201201/15/2014 IMPRESSI ON: WILL FIND HOW TO GET HIM AN EYE DR APPT OR BE EVALUATE D URGENTLY SOMEWHER E. PT ALSO EXAMINED BY DR. RUPERT Perez; RECORDED 11/25/19 13 12:54PM BY AZUCENA FULLER/DAVID matt MD [address] [facility] [address], [place], [address], [facility] [place] 6 19:06:01 Abscess of eyelid [id number] Completed 201212/22/2013 IMPRESSI ON: WILL FIND HOW TO GET HIM AN EYE DR YECENIAT OR BE EVALUATE D URGENTLY SOMEWHER E. PT ALSO EXAMINED BY DR. RUPERT Perez; RECORDED 11/25/19 13 12:54PM BY AZUCENA FULLER/DAVID matt MD [address] [facility] [address], [place], [address], [facility] [place] 6 19:06:01 External hordeolu m [id number] Completed 201201/14/2014 IMPRESSI ON: HAS AN OPHTHO APPT NEXT WEEK.; RECORDED 03/05/20 13 8:56AM BY AZUCENA FULLER ON/DAVID matt MD [address] [facility] [address], [place], [address], [facility] 6 19:06:01 External hordeolu m [id number] Completed 201201/15/2014 IMPRESSI ON: HAS AN OPHTHO APPT NEXT WEEK.; RECORDED 03/05/20 13 8:56AM BY AZUCENA FULLER ON/DAVID matt MD [address] [address], [place], [address], [facility] 6 19:06:01 External hordeolu m [id number] Completed 201212/22/2013 IMPRESSI ON: HAS AN OPHTHO APPT NEXT WEEK.; RECORDED 03/05/20 13 8:56AM BY AZUCENA FULLER ON/DAVID matt MD [address] [address], [place], [address], [facility] [place] 6 19:06:01 Adult health examinat ion Completed 201201/14/2014 RECORDED 04/06/20 13 10:40AM BY AZUCENA FULLER ON/DAVID matt MD [address] [address], [place], [address], [facility] [place] 6 19:06:01 Adult health examinat ion Completed 201201/15/2014 RECORDED 04/06/20 13 10:40AM BY AZUCENA FULLER ON/DAVID matt MD [address] [address], [facility] [place], [address], [facility] [place] 6 19:06:01 Adult health examinat ion Completed 201212/22/2013 RECORDED 04/06/20 13 10:40AM BY AZUCENA FULLER ON/DAVID matt MD [address] [facility] [address], [facility] [place], [address], [facility] [place] 6 19:06:01 Acute upper respirat ory infectio n [id number] Completed 201201/14/2014 IMPRESSI ON: NO SIGNS FOR BACTERIA L INFECTIO ; WILL TREAT WITH CODEINE AND HE WILL CALL NEXT WEEK IF HIS SX PERSIST. ; RECORDED 05/04/20 13 11:01AM BY AZUCENA FULLER ON/DAVID matt MD [address] [facility] [address], [facility] [place], [address], [facility] [place] 6 19:06:01 Acute upper respirat ory infectio n [id number] Completed 201201/15/2014 IMPRESSI ON: NO SIGNS FOR BACTERIA L INFECTIO ; WILL TREAT WITH CODEINE AND HE WILL CALL NEXT WEEK IF HIS SX PERSIST. ; RECORDED 05/04/20 13 11:01AM BY AZUCENA FULLER ON/DAVID matt MD [address] [facility] [address], [place], [address], [facility] [place] 6 19:06:01 Acute upper respirat ory infectio n [id number] Completed 201212/22/2013 IMPRESSI ON: NO SIGNS FOR BACTERIA L INFECTIO ; WILL TREAT WITH CODEINE AND HE WILL CALL NEXT WEEK IF HIS SX PERSIST. ; RECORDED 05/04/20 13 11:01AM BY AZUCENA FULLER ON/DAVID matt MD [address] [facility] [address], [facility] [place], [address], [facility] [place] 6 19:06:01 Anemia 432620898 Completed 201301/14/2014 IMPRESSI ON: HGB 13 IN HOSPITAL BEFORE DISCHARG E, WILL REPEAT IN 2 WEEKS, LABSLIP GIVEN; RECORDED 08/04/19 14 10:34AM BY AZUCENA FULLER ON/DAVID matt MD [address] [facility] [address], [facility] [place], [address], [facility] [place] 6 19:06:01 Hemorrha ge of rectum and anus 479692246 Completed 201301/14/2014 RECORDED 08/04/19 14 10:34AM BY AZUCENA FULLER ON/DAVID matt MD [address] [facility] [address], [facility] [place], [address], [facility] [place] 6 19:06:01 Cough [id number] Completed 201301/14/2014 IMPRESSI ON: C/W VIRAL ILLNESS, LUNGS ARE CLEAR TODAY AND AFEBRILE , RECOMMEN D SUPPORTI VE TX INCL. REST AND HYDRATIO N BUT ADVISE TO RTC IF PERSISTE NT FEVER OR DYSPNEA. ; RECORDED 08/04/19 14 10:34AM BY AZUCENA FULLER ON/DAVID matt MD [address] [facility] [address], [place], [address], [facility] [place] 6 19:06:01 Tobacco dependen ce syndrome 51169916 Completed 201301/14/2014 RECORDED 08/04/19 14 10:34AM [facility] 8 08:51:50 Fever [id number] Completed 201301/14/2014 IMPRESSI ON: WITH TACHYPNE A, TACHYCAR NANCY, ABDOMINA L TENDERNE SS, H/O SUPERIOR MESENTER IC VEIN THROMBOS IS ON COUMADIN , HIV+, SEND TO ER VIA AMBULANC E; RECORDED 08/04/19 14 10:34AM BY AZUCENA FULLER ON/DAVID matt MD [address], [place], [address], [facility] 6 19:06:01 Follow-u p encounte r Completed 201301/14/2014 RECORDED 08/04/19 14 10:34AM BY AZUCENA FULLER ON/DAVID matt MD [address], [place], [address], [facility] 6 19:06:01 Influenz a with respirat ory manifest ation other than pneumoni a Completed 201301/14/2014 IMPRESSI ON: RESOLVIN G, ON TAMIFLU, WILL COMPLETE COURSE; RECORDED 08/04/19 14 10:34AM BY AZUCENA FULLER ON/DAVID matt MD [address], [place], [address], [facility] [place] 6 19:06:01 Anemia 346271913 Completed 201301/15/2014 IMPRESSI ON: HGB 13 IN HOSPITAL BEFORE DISCHARG E, WILL REPEAT IN 2 WEEKS, LABSLIP GIVEN; RECORDED 08/04/19 14 10:34AM BY AZUCENA FULLER ON/DAVID matt MD [address], [place], [address], [facility] [place] 6 19:06:01 Hemorrha ge of rectum and anus 243464400 Completed 201301/15/2014 RECORDED 08/04/19 14 10:34AM BY AZUCENA FULLER/DAVID matt MD [address], [place], [address], [facility] [place] 6 19:06:01 Cough [id number] Completed 201301/15/2014 IMPRESSI ON: C/W VIRAL ILLNESS, LUNGS ARE CLEAR TODAY AND AFEBRILE , RECOMMEN D SUPPORTI VE TX INCL. REST AND HYDRATIO N BUT ADVISE TO RTC IF PERSISTE NT FEVER OR DYSPNEA. 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 , HIV+, SEND TO ER VIA AMBULANC E; RECORDED 08/04/19 14 10:34AM BY AZUCENA FULLER ON/DAVID matt MD [address] [facility] [address], [place], [address], [facility] [place] 6 19:06:01 Follow-u p encounte r Completed 201301/15/2014 RECORDED 08/04/19 14 10:34AM BY AZUCENA FULLER/DAVID matt MD [address] [facility] [address], [place], [address], [facility] [place] 6 19:06:01 Influenz a with respirat ory manifest ation other than pneumoni a Completed 201301/15/2014 IMPRESSI ON: RESOLVIN G, ON TAMIFLU, WILL COMPLETE COURSE; RECORDED 08/04/19 14 10:34AM BY AZUCENA FULLER ON/DAVID matt MD [address] [facility] [address], [facility] [place], [address], [facility] [place] 6 19:06:01 Anemia 349702783 Completed 201312/22/2013 IMPRESSI ON: HGB 13 IN HOSPITAL BEFORE DISCHARG E, WILL REPEAT IN 2 WEEKS, LABSLIP GIVEN; RECORDED 08/04/19 14 10:34AM BY AZUCENA FULLER ON/DAVID matt MD [address] [facility] [address], [facility] [place], [address], [facility] [place] 6 19:06:01 Hemorrha ge of rectum and anus 184783778 Completed 201312/22/2013 RECORDED 08/04/19 14 10:34AM BY AZUCENA FULLER ON/DAVID matt MD [address] [facility] [address], [place], [address], [facility] [place] 6 19:06:01 Cough [id number] Completed 201312/22/2013 IMPRESSI ON: C/W VIRAL ILLNESS, LUNGS ARE CLEAR TODAY AND AFEBRILE , RECOMMEN D SUPPORTI VE TX INCL. REST AND HYDRATIO N BUT ADVISE TO RTC IF PERSISTE NT FEVER OR DYSPNEA. 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 , HIV+, SEND TO ER VIA AMBULANC E; RECORDED 08/04/19 14 10:34AM BY AZUCENA FULLER ON/DAVID matt MD [address], [place], [address], [facility] [place] 6 19:06:01 Follow-u p encounte r Completed 201312/22/2013 RECORDED 08/04/19 14 10:34AM BY AZUCENA FULLER ON/DAVID matt MD [address], [place], [address], [facility] [place] 6 19:06:01 Influenz a with respirat ory manifest ation other than pneumoni a Completed 201312/22/2013 IMPRESSI ON: RESOLVIN G, ON TAMIFLU, WILL COMPLETE COURSE; RECORDED 08/04/19 14 10:34AM BY AZUCENA FULLER ON/DAVID matt MD [address] [facility] [address], [place], [address], [facility] [place] 6 19:06:01 Arthropa thy of knee joint 334662742 Active 2013 IMPRESSI ON: FOLLOWED BY [facility]; MCL sprain with medial compartm ent OA. Prescrib ed a rigid brace. 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 On lifelong coumadin Kelly warren [facility] 0 13:52:52 Degenera tion of lumbar interver tebral disc 13743419 Active 2013 Kellysonja warren [facility] 0 13:52:52 Blood coagulat ion disorder 13759893 Active 2013 Was positive for anticard iolipin Ab but has become negative . Followed by Dr Modi and on lifelong anticoag ulation. Kellysonaj warren [facility] 0 13:52:52 Asthma 378722316 Active 2013 Kellysonja warren [facility] 0 13:52:52 Recurren t major depressi ve episodes , moderate 957707872 Active 2013 Kelly Art [facility] 0 13:52:52 Pure hypercho lesterol emia 310980124 Completed 201303/21/2017 RECORDED 12/03/19 14 2:09PM BY MERY RHODES I, OFFICE VISIT Ruthann matt MD [address] [facility] [address], [place], [address], [facility] [place] 7 11:41:51 Insomnia 937000917 Active 2013 Kellysonja Cordova [facility] 0 13:52:52 Tobacco dependen ce syndrome 22945351 Active 2013 [facility] 0 13:52:52 Abnormal anal Papanico laou smear 231376357 Active 2014 Referred to surgery. Negative for AIN; needs yearly PAPs Kellysonja warren [facility] 0 13:52:52 Low grade squamous intraepi thelial lesion on anal Papanico laou smear 34161501247 9106 Active 2015 followed by surgery; had anal biopsy which was negative ; followed yearly. Kellysonja warren [facility] 0 13:52:52 Hyperlip idemia 55442285 Active 2016 Kelly warren, [facility] 0 13:52:52 Allergic rhinitis 46305699 Active 2016 Kellysonja warren, [facility] 0 13:52:52 Traumati c dislocat ion of joint of finger 452946719 Active 2017 4th finger. Reduced in ER Kelly warren, [facility] 0 13:52:52 Carpal tunnel syndrome of right wrist 99400843755 9108 Active 2018 Kelly warren, [facility] 0 13:52:52 Alcohol dependen ce 65331870 Active 2018 [facility], [facility] 0 13:52:52 Patellof emoral osteoart hritis 271932845 Active 2018 Nae lorenzo; seen at [facility]; PT and meds are only treatmen t. Kellysonja warren, [facility] 0 13:52:52 Gastroes ophageal reflux disease 806172599 Active 2018 [facility] 0 13:52:52 Obstruct lexi sleep apnea syndrome 80610383 Active 2019 Kelly Money [facility], [facility] 0 13:52:52 Essentia l hyperten adam 07306659 Active 2019 Kelly Money [facility], [facility] 0 13:52:52 Right lateral elbow tendinop athy 69520713258 9107 Active 2019 seen by ortho [facility] 0 13:52:52 Stenosin g tenosyno vitis 96837494 Active 2020 left ring finger; seen by Dr Fontana; consider ing surgery. Ruthann matt MD [address] [facility] [address], [facility] [place], [address] , [facility] [place] 1 08:42:39 Cyst 850593890 Active 2020 retinacu lar cyst of left ring finger. Dr Addi self ds surgery. Ruthann matt MD [address] [facility] [address], [place], [address], [facility] [place] 1 08:43:24 Dizzines s 385606586 Active 2020 eGrtrude Woods PA-C [address] [facility] [address], [place], [address], [facility] [place] 1 15:12:20 Eczema of ear lobe 56834863 Active 2020 Gertrude Woods PA-C [address] [facility] [address], [place], [address], [facility] [place] 1 15:17:29 SARS-CoV -2 Active 2021 Quin childs [place] null, [facility] 2 13:57:23 Hypercoa gulabili ty state 48435278 Active 2021 Josue Bacon MD [address] [facility] [address], [place], [address], [facility] [place] 2 14:33:58 Generali zed anxiety disorder 54364495 Active 2022 Ruthann matt MD [address] [facility] [address], [place], [address], [facility] [place] 3 15:36:59 Type 2 diabetes mellitus 50560563 Active 2024 Ruthann matt MD [address] [facility] [address], [place], [address], [facility] [place] 5 07:42:07 Problem Notes None recorded. Procedures Surgical History Date Name Laterality Status Provider Name and Address Organization Details Recorded Time 11/03/19 22 Carpal tunnel surgery completed Shireen Solorio [facility] 11/20/2021 15:10:46 10/22/19 21 Colonoscopy completed Deepika Peralta [facility] 10/28/2020 11:18:56 07/22/19 19 Carpal tunnel surgery completed Quin jeffrey [place] [facility] 03/05/2019 15:05:37 05/28/20 18 Mini-Cog Test completed Mery Gao [facility] 05/28/2018 13:34:35 03/05/20 18 Unlisted px hands/fingers completed Shireen Solorio [facility] 03/06/2019 15:18:47 02/14/20 18 open reduction of dislocation completed Quin jeffrey [place] [facility] 03/05/2019 15:10:44 01/11/20 18 tooth extraction completed Quin jeffrey MA [facility] 03/05/2019 14:40:16 05/31/20 15 Anoscopy and biopsy completed Quin jeffrey MA [facility] 03/05/2019 14:39:24 04/15/20 15 microscopic examination of anal Papanicolaou smear completed Quin jeffrey MA [facility] 03/05/2019 14:38:34 Oral surgery procedure completed Roxy Gupta MA [facility] 07/10/2022 13:07:19 Imaging Results None recorded. Procedure Notes None recorded. Medical Equipment None Reported. Allergies Allergen ID Allergen Name Allergen Category Reaction Reaction Severity Criticality Documentation Date Start Date Code Code System Note Provider Name and Address Organization Details Recorded Time 91220 hepatitis B surface antigen vaccine medicatio n itching Not available Not available 03/16/2022 21780 2 RxNorm BELKIS Colunga [facility] 2 13:59:27 Medications Name Sig Start Date Stop Date Status Note LastModified by Organization Details LastModified Time acetamino phen/code ine 300-15 mg tabs active Not Available Not Available Not Available loratadin e 10 mg tabs active Not Available Not Available Not Available vitamin d 80829 unit caps active Not Available Not Available [...] Not Available Not Available d3 50 mcg (1999 ut) tabs 09/26 completed Not Available Not Available [...] Available Not Available vitamin d3 50 mcg (1999 ut) 02/21 completed Not Available Not Available Not [...] 03/18 completed RECORDED 03/21/20 11 1:21PM BY PATRICIA LUX PA-C, MEDICATI ON AUTO-EVER CTIVATIO N;TAKE [...] 05/10 completed RECORDED 05/17/20 10 9:41AM BY PATRICIA LUX PA-C, MEDICATI ON AUTO-EVER CTIVATIO N; [...] 12 9:25AM BY RUTHANN SADLER MD, AZUCENA ON/ADDRUFINO DUM; Not Available Not Available Not Available Acular 0.5 % eye drops FOUR TIMES DAILY 06/26 completed RECORDED 06/26/19 12 9:25AM BY RUTHANN SADLER MD, AZUCENA ON/ADDRUFINO DUM; Not Available Not Available Not Available [...] 12 9:25AM BY RUTHANN SADLER MD, ANNOTATI ON/DAVID DUM; Not Available Not Available Not [...] Not Avai lable Nasonex 50 mcg/actua tion Mongo Mongo 2 sprays every day by intranas al [...] 06/07/20 11 2:52PM BY AZUCENA MONTEIRO ON/DAVID DUM;DX=A STHMA Not Available Not Available Not [...] Details Last Updated DateTime 5 180.34 cm 35.4 kg/m2 275850. 46 g 88 /min 98 % 98.3 [degF] 125/84 mm[Hg] Glenny Mann MA [facility] 5 11:03:24 Date Recorded Body height Body mass index (BMI) Body weight Heart rate Oxygen saturation Body temperature Systolic And Diastolic Provider Name and Address Organization Details Last Updated DateTime 5 180.34 cm 34.4 kg/m2 756565. 32 g 85 /min 98 % 98.3 [degF] 117/81 mm[Hg] Glenny Mann MA [facility] 5 13:15:18 Date Recorded Body height Body mass index (BMI) Body weight Heart rate Oxygen saturation Body temperature Systolic And Diastolic Provider Name and Address Organization Details Last Updated DateTime 5 180.34 cm 32.8 kg/m2 132400. 21 g 90 /min 99 % 98 [degF] 128/85 mm[Hg] Patricia Shekhar Raphael MA [facility] 5 14:09:44 Date Recorded Body height Body mass index (BMI) Body weight Heart rate Oxygen saturation Body temperature Systolic And Diastolic Provider Name and Address Organization Details Last Updated DateTime 5 180.34 cm 32.2 kg/m2 011208. 84 g 86 /min 100 % 97.8 [degF] 130/80 mm[Hg] Glenny Mann MA [facility] 5 13:18:35 Date Recorded Body height Body mass index (BMI) Body weight Heart rate Oxygen saturation Body temperature Systolic And Diastolic Provider Name and Address Organization Details Last Updated DateTime 5 180.34 cm 32.4 kg/m2 312065. 43 g 61 /min 96 % 98.1 [degF] 127/86 mm[Hg] Glenny Mann [facility] 5 13:49:23 Social History Question Answer Notes LastModified by Organizat ion Details LastModified Time Tobacco Smoking Status Current Every Day Smoker Not Available [facility] 04/12/2020 03:36:34 Do You Have An Advance Directive? Yes [id number] Information not available 04/12/2020 Is Blood Transfusion Acceptable In An Emergency? Yes [id number] Information not available 04/12/2020 What Is Your Level Of Caffeine Consumption? Heavy 2 Pots Of Coffee Daily (five Large Cups Of Coffee); Occasional Soda Information not available 05/21/2023 How Much Tobacco Do You Chew? None [id number] Information not available 04/12/2020 What Type Of Diet Are You Following? REGULAR Eating More Cabbage [id number] Information not available 04/12/2020 Which Illicit Or Recreational Drugs Have You Used? Marijuana, Crack Quit Crack Cocaine On October 07, 2018 [id number] Information not available 04/12/2020 Are There Any Guns Present In Your Home? No [id number] Information not available 04/12/2020 Live Alone Or [...] Have You Served In The ? No Information not available 04/09/2016 Have You Or [...] Gathering In The Last 10 Days? No [email or web address] Information not available 12/27/2020 What Was The Date Of Your Most Recent Tobacco Screening? 09/29/2024 [email or web address] Information not available 09/29/2024 How Many Children Do You Have? 0 [id number] Information not available 04/12/2020 What Is Your Current Pack Years? 30ormorepa [email or web address] Information not available 06/28/2021 Do You Use Protection During Sex? Usually [id number] Information not available 04/12/2020 Seat Belts Used Routinely Yes Information not available 04/07/2015 Are You Sexually Active? Yes [id number] Information not available 04/12/2020 Smoke Alarm In Home Yes Information not available 04/07/2015 At What Age Did You Start Smoking Tobacco? 13 [id number] Information not available 04/12/2020 Are You Passively Exposed To Smoke? Yes Information not available 04/09/2016 How Much Tobacco Do You Smoke? 0.5 PPD [id number] Information not available 04/12/2020 General Stress Level Medium Information not available 03/23/2014 Do You Use Sunscreen Routinely? No [id number] Information not available 04/12/2020 How Many Years Have You Smoked Tobacco? 41 [id number] Information not available 04/12/2020 Sex: Unknown Functional Status Question Answer Note LastModified by Organizat ion Details LastModified Time Do you use any illicit or recreational drugs? No Information not available 06/28/2021 Do you or have you ever used any other forms of tobacco or nicotine? No Information not available 06/28/2021 What is your level of alcohol consumption? None quit October 07, 2018 [id number] Information not available 04/12/2020 Do you or have you ever used smokeless tobacco? Never used smokeless tobacco [id number] Information not available 04/12/2020 Are you currently employed? No [id number] Information not available 04/12/2020 Are you able to walk independently without assistance or assistive devices? YESWOREST [email or web address] Information not available 02/07/2021 Are you able to care for yourself independently? Yes [id number] Information not available 04/12/2020 What is your occupation? disabled Information not available 03/05/2019 Do you or have you ever used e-cigarettes or vape? Never used electronic cigarettes [id number] Information not available 04/12/2020 What is your exercise level? Occasional walking and using stairs [id number] Information not available 04/12/2020 Mental Status None recorded. Family History Relationship Description Onset Age of this Age Resolved Age Notes LastModified by Organization Details LastModified Time Mother Alzheimer's disease [email or web address] Not available 13:11:23 Mother Diabetes mellitus [email or web address] Not available 13:11:23 Mother Neuropathy due to diabetes mellitus [email or web address] s Not available 03/05/2019 14:49:21 Maternal Grandmother Diabetes mellitus [email or web address] Not available 13:11:23 Father Dementia due to Alzheimer's disease 75 [email or web address] Not available 03/12 14:14:59 Sister Fibromyalgia 48 [email or web address] to s Not available 03/05/2019 14:49:41 Notes:3 brothers and 2 siste rs (1 brother as an infant) Medical History Condition Response Coronary Artery Disease N Gout N Other N Blood Diseases N Kidney Stones N Hyperthyroidism N Breast Cancer N mrsa exposure N Lung Disease N Hypothyroidism N Depression Y COPD N Defects or Inherited Disease N Developmental or Behavioral Disorders N Breast Problem N Anesthesia Complications N Headaches/Migraines N Varicose Veins N Anxiety Disorder N Muscle, Joint, or Bone Problems N Obesity N Vision or Eye Problems N Arthritis N Head Injury/Concussion N Infertility N Polyps N Mental Disorder N Congenital Anomalies N Acid Reflux (GERD) N Cancer N Stroke N ADHD N Endometriosis N High Cholesterol Y Liver Disease N Headaches N Fibromyalgia N Kidney Disease N Heart Problems N Ear or Hearing Problems N Hospitalizations N Thyroid Problems N GI Problems N Developmental Delay N Acne N Eating Disorder N Skin Problems N Anemia N Constipation N Bladder Problems N Mental Illness N Diabetes N Ovarian Cancer N Bedwetting N Blood Transfusions N Heart Problems/Murmur N Seizures/Epilepsy N Tuberculosis N AIDS/HIV Y Congestive Heart Failure (CHF) N Eczema N Abuse/Domestic Violence N Diverticulitis N Asthma Y Allergies N Reflux/GERD N Hepatitis N Heart Disease N Pulmonary Embolism N Hypertension N Chicken Pox N Autism Spectrum Disorder (ASD) N Osteoporosis N Immunizations Vaccine Type Date Status Note Provider Nam e and Address Organization Details Recorded Time Influenza, MDCK, quadrivalent, preservative 9 completed BELKIS Samayoa [facility] 02/21/2022 11:36:55 pneumococcal polysaccharide PPV23 9 completed BELKIS Samayoa [facility] 02/21/2022 11:36:54 meningococcal ACWY, unspecified formulation 7 completed BELKIS Samayoa [facility] 02/21/2022 11:36:54 influenza, whole 2 completed BELKIS Samayoa [facility] 02/21/2022 11:36:54 Hep A-Hep B 3 completed BELKIS Samayoa, [facility] 02/21/2022 11:36:54 Influenza, split virus, trivalent, preservative 3 completed BELKIS Samayoa, [facility] 02/21/2022 11:36:54 pneumococcal polysaccharide PPV23 [facility] 11:36:55 [facility] B 3 [facility] 11:36:55 Hep A-Hep B 4 completed BELKIS Samayoa, [facility] 02/21/2022 11:36:55 influenza, whole 9 completed Mery warren, [facility] 09/22/2019 09:57:03 Hep A, adult 2 completed BELKIS [facility] [facility] 02/21[facility]22 11:36:55 Hep A, adult 2 completed BELKIS Samayoa, [facility] 02/21/2022 11:36:55 Influenza, split virus, trivalent, preservative 8 completed BELKIS Samayoa, [facility] 02/21/2022 11:36:55 Hep B, adult 9 completed BELKIS Samayoa, [facility] 02/21/2022 11:36:55 Tdap 2 completed BELKIS Samayoa, [facility] 02/21/2022 11:36:55 Influenza, split virus, trivalent, preservative 5 completed BELKIS Samayoa, [facility] 02/21/2022 11:36:55 pneumococcal conjugate PCV 7 3 completed BELKIS Samayoa, [facility] 02/21/2022 11:36:55 Hep B, adult 9 completed Mery Gao null, [facility] 09/22/2019 09:57:04 COVID-19, mRNA, LNP-S, PF, 30 mcg/0.3 mL dose 1 completed Roxy Gupta MA null, [facility] 05/31/2021 16:16:34 Influenza, split virus, trivalent, preservative 1 completed Roxy Gupta MA null, [facility] 05/31/2021 16:16:34 zoster recombinant 1 completed Roxy Gupta MA null, [facility] 05/31/2021 16:16:34 COVID-19, mRNA, LNP-S, PF, 30 mcg/0.3 mL dose 1 completed Roxy Gupta MA null, [facility] 05/31/2021 16:16:34 COVID-19, mRNA, LNP-S, PF, 30 mcg/0.3 mL dose 1 completed BELKIS Alvarez, [facility] 05/31/2021 16:16:34 Influenza, MDCK, quadrivalent, preservative 9 completed BELKIS Alvarez, [facility] 05/31/2021 16:16:34 pneumococcal polysaccharide PPV23 2 completed Kelly Cordova [facility] 11/05/2019 13:52:46 [facility] 13:52:46 Influenza, split virus, trivalent, preservative 7 completed [facility] 13:52:46 [facility]dap 8 [facility] 13:52:46 Influenza, split virus, trivalent, preservative 8 completed Kelly Money null, [facility] 11/05/2019 13:52:46 Influenza, split virus, trivalent, preservative 9 completed [facility] 11/05/2019 13:52:46 Novel [id number], all formulations 0 completed Kelly Money [facility], [facility] 11/05/2019 13:52:46 Influenza, split virus, trivalent, preservative 0 completed Kelly Money null, [facility] 11/05/2019 13:52:46 Influenza, split virus, trivalent, preservative 1 completed Kelly Art [facility] 11/05/2019 13:52:46 Influenza, split virus, trivalent, preservative 3 completed Kelly Art [facility] 11/05/2019 13:52:46 COVID-19, mRNA, LNP-S, PF, 10 mcg/0.2 mL dose, jocelyn-sucrose 1 [facility]/21/[facility]22 11:36:54 COVID-19, mRNA, LNP-S, PF, 30 mcg/0.3 mL dose, jocelyn-sucrose 2 completed BELKIS Samayoa, [facility] 02/21/2022 11:36:54 Influenza, split virus, quadrivalent, PF 8 completed BELKIS Samayoa, [facility] 02/21/2022 11:36:54 Td (adult), 2 Lf tetanus toxoid, preservative free, adsorbed 8 [facility] 11:36:55 Influenza, split virus, quadrivalent, PF 7 completed BELKIS Samayoa, [facility] 02/21/2022 11:36:55 Influenza, split virus, quadrivalent, PF 6 completed BELKIS Samayoa, [facility] 02/21/2022 11:36:55 Influenza, split virus, quadrivalent, PF 5 completed BELKIS Samayoa, [facility] 02/21/2022 11:36:55 zoster recombinant 2 completed BELKIS Samayoa, [facility] 02/21/2022 11:36:55 Influenza, split virus, quadrivalent, PF 0 completed BELKIS Samayoa, [facility] 02/21/2022 11:36:55 Influenza, split virus, trivalent, preservative 1 completed BELKIS Samayoa, [facility] 02/21/2022 11:36:55 Influenza, split virus, quadrivalent, PF 5 completed BELKIS Alvarez, [facility] 03/14/2022 13:27:19 Influenza, split virus, quadrivalent, PF 2 completed BELKIS Catalan, [facility] 03/16/2022 13:58:37 Vaccinia, smallpox monkeypox vaccine live, PF, SQ or ID injection 2 completed BELKIS Alvarez, [facility] 07/10/2022 12:57:08 Vaccinia, smallpox monkeypox vaccine live, PF, SQ or ID injection 2 completed BELKIS Alvarez, [facility] 07/10/2022 12:57:08 Influenza, MDCK, quadrivalent, PF 3 completed BELKIS Cummings, [facility] 05/21/2023 13:37:44 COVID-19, mRNA, LNP-S, PF, 50 mcg/0.5 mL 3 completed BELKIS Cummings, [facility] 05/21/2023 13:37:44 COVID-19, mRNA, LNP-S, PF, 50 mcg/0.5 mL 3 completed BELKIS Cummings, [facility] 05/21/2023 13:37:44 Pneumococcal conjugate PCV20, polysaccharide [id number] conjugate, adjuvant, PF 4 completed [facility] 05/04/2025 13:36:15 COVID-19, mRNA, LNP-S, PF, jocelyn-sucrose, 30 mcg/0.3 mL 4 completed Not Available [facility] 05/04/2025 13:36:15 Influenza, MDCK, trivalent, PF 4 completed Not Available [facility] 05/04/2025 13:36:15 Past Encounters Encounter ID Performer Location Encounter Start Date Encounter Closed Date Diagnosis/Indication Diagnosis SNOMED-CT Code Diagnosis ICD10 Code Diagnosis IMO Codes Diagnosis Note [id number] auto[facility]Comm [facility]ce [address] [facility],[address] [place] [address] 11/21/2006 00:00:00 [id number] autoEComm erce [address] [facility],[address] [place] [address] 12/23/2006 00:00:00 [id number] autoEComm erce [address] [facility],[address] [place] [address] 06/13/2006 00:00:00 [id number] autoEComm erce [address] [facility],[address] [place] [address] 02/04/2007 00:00:00 [id number] autoEComm erce [address] [facility],[address] [place] [address] 04/07/2007 00:00:00 [id number] autoEComm erce [address] [facility],[address] [place] [address] 07/07/2007 00:00:00 [id number] autoEComm erce [address] [facility],[address] [place] [address] 10/08/2007 00:00:00 [id number] autoEComm erce [address] [facility] [address] [place] [address] 02/17/2008 00:00:00 [id number] [place] [address] 06/24/2008 00:00:00 [id number] autoEComm erce [address] [facility] [address] [place] [address] 09/21/2008 00:00:00 [id number] autoEComm erce [address] [facility] [address] [place] [address] 12/22/2008 00:00:00 [id number] autoEComm erce [address] [facility] [address] [place] [address] 01/27/2009 00:00:00 [id number] autoEComm erce [address] [facility],[address] [place] [address] 02/01/2009 00:00:00 [id number] autoEComm erce [address] [facility],[address] [place] [address] 03/29/2009 00:00:00 [id number] autoEComm erce [address] [facility],[address] [place] [address] 06/29/2009 00:00:00 [id number] autoEComm erce [address] [facility],[address] [place] [address] 10/04/2009 00:00:00 [id number] autoEComm erce [address] [facility],[address] [place] [address] 11/04/2009 00:00:00 [id number] autoEComm erce [address] [facility] [address] [place] [address] 11/16/2009 00:00:00 [id number] autoEComm erce [address] [facility],[address] [place] [address] 12/15/2009 00:00:00 [id number] [address]Comm [address] [place] [address] 12/29/2009 00:00:00 [id number] [address]Comm erce [address] [place] [address] 03/17/2010 00:00:00 [id number] autoEComm erce [address] [place] [address] 05/03/2010 00:00:00 [id number] [address]Comm erce [address] [place] [address] 07/04/2010 00:00:00 [id number] autoEComm erce [address] [facility] [address] [place] [address] 07/21/2010 00:00:00 [id number] autoEComm erce [address] [facility] [address] [place] [address] 08/25/2010 00:00:00 [id number] autoEComm erce [address] [facility] [address] [place] [address] 10/19/2010 00:00:00 [id number] autoEComm erce [address] [facility],[address] [place] [address] 01/22/2011 00:00:00 [id number] autoEComm erce [address] [facility] [address] [place] [address] 03/02/2011 00:00:00 [id number] autoEComm erce [address] [facility],[address] [place] [address] 03/06/2011 00:00:00 [id number] autoEComm erce [address] [facility],[address] [place] [address] 03/13/2011 00:00:00 [id number] autoEComm erce [address] [facility] [address] [place] [address] 03/21/2011 00:00:00 [id number] autoEComm erce [address] [facility],[address] [place] [address] 04/16/2011 00:00:00 [id number] autoEComm erce [address] [place] [address] 05/23/2011 00:00:00 [id number] autoEComm erce [address] [place] [address] 11/26/2011 00:00:00 [id number] autoEComm erce [address] [place] [address] 01/10/2012 00:00:00 [id number] [address]Comm [address] [place] [address] 04/14/2012 00:00:00 [id number] autoEComm erce [address] [place] [address] 10/15/2012 00:00:00 [id number] autoEComm erce [address] [facility],[address] [place] [address] 10/29/2012 00:00:00 [id number] autoEComm erce [address] [facility],[address] [place] [address] 01/03/2011 00:00:00 [id number] autoEComm erce [address] [facility],[address] [place] [address] 03/05/2013 00:00:00 [id number] autoEComm erce [address] [facility],[address] [place] [address] 04/06/2013 00:00:00 [id number] autoEComm erce [address] [facility] [address] [place] [address] 05/04/2013 00:00:00 [id number] autoEComm erce [address] [facility],[address] [place] [address] 05/25/2013 00:00:00 [id number] autoEComm erce [address] [place] [address] 06/16/2010 00:00:00 [id number] autoEComm erce [address] [place] [address] 07/29/2013 00:00:00 [id number] autoEComm erce [address] [place] [address] 09/03/2013 00:00:00 [id number] autoEComm erce [address] [place] [address] 12/02/2013 00:00:00 [id number] auto[address]Comm erce [address] [place] [address] 04/19/2010 00:00:00 [id number] autoEComm erce [address] [place] [address] 01/21/2009 00:00:00 [id number] autoEComm erce [address] [facility] [address] [place] [address] 11/24/2012 00:00:00 [id number] autoEComm erce [address] [facility],[address] [place] [address] 10/31/2012 00:00:00 [id number] autoEComm erce [address] [facility] [address] [place] [address] 04/02/2012 00:00:00 [id number] autoEComm erce [address] [facility] [address] [place] [address] 10/18/2011 00:00:00 [id number] autoEComm erce [address] [facility],[address] [place] [address] 09/19/2011 00:00:00 [id number] autoEComm erce [address] [facility] [address] [place] [address] 07/18/2011 00:00:00 [id number] autoEComm erce [address] [facility],[address] [place] [address] 07/15/2012 00:00:00 [id number] autoEComm erce [address] [facility] [address] [place] [address] 09/13/2011 00:00:00 [id number] autoEComm erce [address] [facility],[address] [place] [address] 06/20/2011 00:00:00 [id number] autoEComm erce [address] [facility],[address] [place] [address] 05/08/2011 00:00:00 [id number] autoEComm erce [address] [facility],[address] [place] [address] 06/02/2013 00:00:00 [id number] Ruthann Trejo MD Main Office [address] [place] [address] [place] [address] 05/11/2014 15:19:57 05/11/2014 16:02:12 Fracture of two ribs 07102594 pain mg mt; I spoke to the radiologis t and she felt that there was no need for a f/u xray. [id number] Ruthann Trejo MD Main Office [address] [place] [address] [place] [address] 10/07/2014 14:14:09 10/07/2014 14:50:33 Insomnia 792487653 Recurrent major depressive episodes, moderate 164348987 Body mass index 25-29 - overweight 887919624 he has been unsuccessf ul with weight loss. Blood coag ulation disorder 92157980 he is wondering if there is another med he can take since the coumadin limits his food options. Will look into alternativ es. [id number] Ruthann Trejo MD Main Office [address] [address] [place] [address] 12/22/2014 11:07:11 12/22/2014 11:40:20 Pityriasis versicolor 27146458 Asthma 376101667 good control with current management . [id number] Ruthann Trejo MD Main Office [address] [place] [address] [place] [address] 04/07/2015 10:13:05 04/07/2015 11:05:10 Adult health examination 210833227 Z00.00 Needs infl uenza immunization 139860922 Z23 Recurrent major depressive episodes, moderate 103033541 F33.1 start meds and f/u in 1 month. We discussed starting therapy but he feels that he is unable to keep regular appointmen ts because of his schedule with his mother who he cares for. Asymptomat ic human immunodeficiency virus infection 40451501 Z21 followed by Dr Whitman Blood coag ulation disorder 33093632 D69.9 he is wondering if there is another med he can take since the coumadin limits his food options. Will look into alternativ es. Screening for malignant neoplasm of colon 438191830 Z12.11 [id number] Josue Bacon MD Main Office [address] [facility] [address] [place] [address] 04/22/2015 14:43:24 04/22/2015 15:02:53 Tuberculosis screening 695312576 Z11.1 [id number] Ruthann Trejo MD Main Office [address] [place] [address] 05/19/2015 10:17:15 05/19/2015 11:10:03 Recurrent major depressive episodes, moderate 669348269 F33.1 He started the wellbutrin and is taking 300 mg. He is getting minimal help from it. He was encouraged to continue it. Arthropath y of knee joint 831775060 M12.869 we will try a script for T#3 and he understand s that this can be used sparingly. He will also call [facility] when he is due for another injection. Blood coag ulation disorder 19703146 D69.9 currently on life-long coumadin Acute vasc ular insufficiency of intestine 41721148 K55.0 chronic problem. [id number] Gertrude Woods PA-C Main Office [address] [place] [address] 05/24/2015 14:09:22 05/24/2015 15:20:28 Pre-surgery evaluation 280073511 Z01.818 Based on EKG and PE finding pt. has no increased risk for the procedure. Pt. will stop Warfarin for 7 days prior to the procedure which is today and will restart right after the procedure. Labs ordered : CBC, CMP. Abnormal a nal Papanicolaou smear 805484848 R85.619 Blood coag ulation disorder 58873641 D69.9 [id number] Ruthann Trejo MD Main Office [address] [facility] [address] [place] [address] 07/28/2015 12:59:47 07/28/2015 13:59:06 Recurrent major depressive episodes, moderate 570434955 F33.1 He will restart his meds and he will look into counseling . He will call here if he needs assistance . Insomnia 451223695 G47.0 0 He has been taking neurontin but this hasn't been helping. [id number] Ruthann Trejo MD Main Office [address] [address] 09/07/2015 10:26:16 09/07/2015 11:42:34 Asthma 282390960 J45.909 good control with current management . Recurrent major depressive episodes, moderate 678486219 F33.1 We will increase his celexa from 20 to 40 mg and see him back in 1 month. He also has an appointmen t scheduled for counseling with Nelda. Arthropath y of knee joint 025339096 M12.799 we will try a script for T#3 and he understand s that this can be used sparingly. He will also call [facility] when he is due for another injection. [id number] Ruthann Trejo MD Main Office [address] [address] 10/25/2015 13:32:12 10/25/2015 14:26:37 Hearing loss 52295731 H91.92 We will check with ENT about getting him a replacemen t hearing aid. [id number] Ruthann Trejo MD Main Office [address] [address] 04/09/2016 13:35:05 04/09/2016 14:39:16 Adult health examination 796388840 Z00.00 Needs infl uenza immunization 536421336 Z23 Asymptomat ic human immunodeficiency virus infection 81599659 Z21 followed by Dr Whitman Blood coag ulation disorder 97632073 D69.9 currently on life-long coumadin Chronic va scular insufficiency of intestine 910689408 K55.1 on life-long anti coagulatio n Snoring 36220142 R06.83 Hyperlipidemia 96848149 E78.5 Asthma 735772668 J45.90 9 no longer with good nighttime control on flovent and proair only. Will hold the flovent and start symbicort and f/u in 1 month. May add singulair if he is still having symptoms. Degenerati on of lumbar intervertebral disc 91579929 M51.36 we will look into changing his coumadin to eliquis since tylenol is not helping with his back pain and he needs to avoid NSAIDs. [id number] Ruthann Trejo MD Main Office [address] [address] 05/15/2016 13:33:48 05/15/2016 14:29:07 Asthma 386666637 J45.909 He is no longer having nighttime symptoms since starting on the symbicort. No further changes needed at this time. Arthropath y of knee joint 908008443 M12.869 He can now take NSAIDs since he is no longer taking coumadin. Deep venou s thrombosis of lower extremity 331091256 I82.509 this was secondary to a coagulatio n d/o and is on anti-coagu lation Blood coag ulation disorder 51428108 D69.9 currently on life-long anticoagul ation for anti cardiolipi n Ab defect. [id number] Ruthann Trejo MD Main Office [address] [address] 07/17/2016 10:55:51 07/17/2016 11:44:35 Cough 55791277 R05 Fever 422599635 R50.9 [id number] Ruthann Trejo MD Main Office [address] [address] 08/01/2016 11:34:42 08/01/2016 12:11:10 Acute laryngitis 0070151 J04.0 Cough 32437127 R05 Prednisone prescribed . May be an infection since he also has laryngitis or may be related to his asthma. [id number] Ruthann Trejo MD Main Office [address] [address] 11/22/2016 15:35:55 11/22/2016 16:38:07 Asthma 308222304 J45.909 He is no longer having nighttime symptoms since starting on the symbicort. Has more problems in hot and humid weather which doesn't always respond to his rescue inhaler. [id number] Ruthann Trejo MD Main Office [address] [facility] [address] [place] [address] 12/26/2016 15:43:42 12/26/2016 16:16:23 Recurrent major depressive episodes, moderate 484443974 F33.1 Anxiety state 436616732 F41.1 [id number] Ruthann Trejo MD Main Office [address] [address] [place] [address] 01/07/2017 13:48:36 01/07/2017 14:33:53 Recurrent major depressive episodes, moderate 216714823 F33.1 Restarted celexa 40 mg last week. Will hold off on adding wellbutrin and see him back in 1 month before deciding whether it is needed. Arthropath y of knee joint 723004036 M12.869 He can now take NSAIDs since he is no longer taking coumadin. Asymptomat ic human immunodeficiency virus infection 05181734 Z21 followed by Dr Whitman Blood coag ulation disorder 93132594 D69.9 currently on life-long anticoagul ation for anti cardiolipi n Ab defect. [id number] Ruthann Trejo MD Main Office [address] [address] [place] [address] 03/21/2017 11:09:59 03/21/2017 11:48:33 Recurrent major depressive episodes, moderate 603906596 F33.1 Taking celexa and feels that this is helping. Needs infl uenza immunization 692563754 Z23 Asymptomat ic human immunodeficiency virus infection 27033361 Z21 followed [address] Dr Whitman; needs to make a f/u appointmen t with him. Hyperlipidemia 87219993 E78.5 On meds and needs fasting lipids checked. Deep venou s thrombosis of lower extremity 491355998 I82.509 Has a coagulatio n d/o and will be on lifelong coumadin. [id number] Ruthann Trejo MD Main Office [address] [address] [place] [address] 05/07/2017 13:44:25 05/07/2017 13:54:48 Tuberculosis screening 779274116 Z11.1 [id number] Adair goldberg MD Main Office [address] [address] [place] [address] 05/10/2017 13:22:55 05/10/2017 13:34:33 [id number] Ruthann Trejo MD Main Office [address] [address] [place] [address] 05/14/2017 13:34:20 05/14/2017 14:36:32 Adult health examination 867339219 Z00.00 UTD with immunizati ons. He is due for a colonoscop y and we will schedule this for him. Asthma 766642152 J45.90 9 good control with current management . Allergic rhinitis 920840 04 J30.9 Arthropath y of knee joint 700778341 M12.869 Long standing problem not getting any better. Screening for malignant neoplasm of colon 881740182 Z12.11 [id number] Ruthann Trejo MD Main Office [address] [address] [place] [address] 08/19/2017 13:06:02 08/19/2017 13:49:45 Arthropathy of knee joint 739667062 M12.869 Long standing problem not getting any better. He was referred to PT and will do home exercises. Allergic rhinitis 691174 04 J30.9 On meds and have been under good control. Asthma 746123646 J45.90 9 good control with current management . Recurrent major depressive episodes, moderate 374140992 F33.1 Taking celexa and feels that this is helping. [id number] STEPHENIE Fry Main Office [address] [address] [place] [address] 09/06/2017 08:50:11 09/06/2017 09:28:29 Low back pain 464858254 M54.5 left lower back spasm, cyclobenza analia, heat 4 times daily, massage, stretching . no driving or alchol with med. continue meloxicam daily. Injury of ribs 933375322 S29.9XXA Fracture o f multiple ribs 6952637 S22.42XA non displaced fractures of left 9th and 10th ribs on XR. will rx short term hydrocodon e to be used only as needed, no driving or alcohol with meds. rib fractures may take 1-2 months to heal. May use splint for movement, laughing/ coughing etc. try to take deep breaths throughout the day as much as possible. [id number] Ruthann Trejo MD Main Office [address] [address] [place] [address] 12/31/2017 13:17:01 12/31/2017 14:33:25 Pre-surgery evaluation 138066273 Z01.818 Tooth disorder 512030509 K08.9 requires surgery. [id number] Ruthann Trejo MD Main Office [address] [address] [place] [address] 01/27/2018 15:01:19 01/27/2018 16:28:34 Exacerbation of moderate persistent asthma 968474185 J45.41 Traumatic dislocation of joint of finger 159038068 S63.258A [id number] Ruthann Trejo MD Main Office [address] [address] [place] [address] 04/17/2018 16:04:28 04/17/2018 16:16:23 Needs influenza immunization 908843993 Z23 [id number] Ruthann Trejo MD Main Office [address] [address] [place] [address] 05/28/2018 13:31:02 05/28/2018 14:43:11 Adult health examination 430086984 Z00.00 UTD with immunizati ons. He is due for a colonoscop y and we will schedule this for him. Asymptomat ic human immunodeficiency virus infection 32937129 Z21 followed by Dr Whitman; needs to make a f/u appointmen t with him. Requires a tetanus booster 863583366 Z23 Blood coag ulation disorder 52346569 D69.9 currently on life-long anticoagul ation for anti cardiolipi n Ab defect. Hyperlipidemia 52924437 E78.5 On meds and needs fasting lipids checked. [id number] Ruthann Trejo MD Main Office [address] [address] [place] [address] 10/06/2018 12:36:51 10/06/2018 13:33:24 Alcohol dependence 74548963 F10.20 [id number] Ruthann Trejo MD Main Office [address] [address] [place] [address] 10/13/2018 10:32:15 10/13/2018 11:28:18 Alcohol dependence 36001928 F10.20 Advised him to find a counselor (or longtime sober friend) who he can talk to when he is having a desire to drink alcohol. [id number] Ruthann Trejo MD Main Office [address] [address] [place] [address] 11/11/2018 13:59:45 11/11/2018 15:04:29 Alcohol dependence 52305013 F10.20 He is tolerating the med well and hasn't had a drink since October 06. He attends a group as well as participat es in an on-line group. Will check labs and continue with the same mgmt.For the dry mouth I recommende d that he decrease his loratidine to every other day to see if that helps. [id number] Ruthann Trejo MD Main Office [address] [address] [place] [address] 12/09/2018 14:48:07 12/09/2018 15:28:21 Pain in right knee [id number] 84066 M25.561 Has new-onset knee pain with a burning sensation. [id number] Ruthann Trejo MD Main Office [address] [address] [place] [address] 12/25/2018 15:08:55 12/25/2018 15:53:58 Alcohol dependence 53088058 F10.20 He is tolerating the med well and hasn't had a drink since October 06. He continues to attend a group around the corner from his home once or twice a week as well as participat ing in an on-line group daily which he finds helpful. Will continue with same mgmt. Gastroesop hageal reflux disease 002054026 K21.9 He will try OTC antacids since PPI \'s can interfere with his HIV meds. [id number] Ruthann Trejo MD Main Office [address] [address] [place] [address] 03/05/2019 14:34:09 03/05/2019 15:26:50 Alcohol dependence 58530661 F10.20 He is tolerating the med well and hasn't had a drink since October 06. He continues to attend a group around the corner from his home once or twice a week as well as participat ing in an on-line group daily which he finds helpful. Will continue with same mgmt. Screening for malignant neoplasm of prostate 904669331 Z12.5 Screening for malignant neoplasm of colon 294408610 Z12.11 Hyperlipidemia 09569646 E78.5 On meds and needs fasting lipids checked. Recurrent major depressive episodes, moderate 216474016 F33.1 [id number] Ruthann Trejo MD Main Office [address] [address] [place] [address] 06/12/2019 12:51:01 06/12/2019 14:03:07 Adult health examination 752733126 Z00.00 UTD with immunizati ons. He is due for a colonoscop y and he will schedule this. Asymptomat ic human immunodeficiency virus infection 95702657 Z21 followed by Dr Whitman and c/w meds. Recurrent major depressive episodes, moderate 856276311 F33.1 Will increase his bupropion from 300 to 450 mg. Blood coag ulation disorder 22882215 D69.9 currently on life-long anticoagul ation for anti cardiolipi n Ab defect. Metallic taste 39954079 R43.8 Stop his loratidine since he has been on that for years and try cetirizine . Alcohol dependence 81262 003 F10.20 He is tolerating the med well and hasn't had a drink since October 06. He continues to attend a group around the corner from his home once or twice a week as well as participat ing in an on-line group daily which he finds helpful. Will continue with same mgmt. [id number] Ruthann Trejo MD Main Office [address] [address] [place] [address] 08/05/2019 13:17:31 08/05/2019 13:45:35 Recurrent major depressive episodes, moderate 395372166 F33.1 He increased his bupropion to 450 mg but has not noticed any change in his depression . [id number] Ruthann Trejo MD Main Office [address] [address] [place] [address] 08/24/2019 10:48:25 08/24/2019 12:29:28 Seasonal allergic rhinitis 389748079 J30.2 Migraine 35407773 G43.90 9 Essential hypertension 03341430 I10 He will start meds and follow his BP. F/u here in 1 month. [id number] Ruthann Trejo MD Main Office [address] [address] [place] [address] 09/02/2019 15:07:38 09/02/2019 16:29:18 Essential hypertension 10533826 I10 He will start meds and follow his BP. F/u here in 1 month. Headache 10136263 R51 Doubt if this is from his BP. He will stop his naltrexone to see if that relieves his SHERIFF. Alcohol dependence 21316 003 F10.20 He hasn't had a drink since October 06 (almost 11 months). He continues to attend an on-line group which he finds helpful. He will hold the naltrexone for now to see if that relieves his SHERIFF. [id number] Ruthann Trejo MD Main Office [address] [address] [place] [address] 09/22/2019 08:56:34 09/22/2019 12:59:24 Essential hypertension 54848714 I10 Will start a diuretic and f/u in 3 weeks. He will get lab work done before that time. Alcohol dependence 54058 003 F10.20 He hasn't had a drink since October 06. He continues to attend an on-line group which he finds helpful. Headache 40081342 R51 These have lessened although still present at times. [id number] Ruthann Trejo MD Main Office [address] [address] [place] [address] 10/14/2019 10:51:06 10/15/2019 08:25:49 Essential hypertension 87876295 I10 His BP is still running high but did not get the diuretic delivered from his pharmacy. We will call and check on it and send another scrpt as well. [id number] Ruthann Trejo MD Main Office [address] [address] [place] [address] 11/05/2019 13:24:41 11/05/2019 14:05:24 Essential hypertension 93484188 I10 BP now under control. Continue current mgmt. 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 Body mass index 30+ - obesity 887341626 E66.01 Z68.35 Alcohol dependence 92208 003 F10.20 He hasn't had a drink since October 06, 2018. He continues to attend an on-line group which he finds helpful. Right late ral elbow tendinopathy 0047960383 [address] Fontana. Doing exercises and just started wearing a patch. [id number] Ruthann Trejo MD Main Office [address] [address] [place] [address] 12/01/2019 13:20:18 12/01/2019 14:29:18 Recurrent major depressive episodes, moderate 107313832 F33.1 He will wean from the celexa and will take 20 mg daily for 2 weeks and then stop. He will return in 2 weeks and if tolerating the effexor we will increase his dose. [id number] Ruthann Trejo MD Main Office [address] [address] [place] [address] 12/23/2019 13:21:55 12/23/2019 14:14:07 Recurrent major depressive episodes, moderate 858555468 F33.1 He weaned from the celexa and started with effexor XR 37.5 mg. Went up to 75 mg last night. He will take that for 2 weeks and then increase to 150 mg on January 08. Return 4 weeks after that time for evaluation and possible increase of 37.5 or 75 mg. Essential hypertension 31527823 I10 BP running low and symptomati c. Will continue his amlodipine and hold his chlorthali done [id number] Ruthann Trejo MD Main Office [address] [place] [address] [address] [place] [address] 02/09/2020 13:06:40 02/09/2020 14:22:33 Recurrent major depressive episodes, moderate 291990874 F33.1 He weaned from the celexa and started with effexor XR 37.5 mg. He has since gone up to 150 mg and still feeling depressed. He has good days and bad days but the med does not yet seem to be helping. We will increase to the max dose of 225 as recommende d by [facility] psych med consult and see him back in 6 weeks. If needed we will augment with wellbutrin at that time. [id number] Ruthann Trejo MD Main Office [address] [address] [place] [address] 03/18/2020 11:11:06 03/18/2020 12:12:11 Essential hypertension 44861690 I10 BP still running low after stopping his chlorthali done. We will decrease his amlodipine from 10 to mg and follow. His BP may be returning to normal because he is no longer drinking excess alcohol daily. Needs infl uenza immunization 244902148 Z23 Pityriasis versicolor 56 907647 B36.0 Alcohol dependence 50080 003 F10.20 He hasn't had a drink since October 06, 2018. He continues to attend an on-line group which he finds helpful. Recurrent major depressive episodes, moderate 740949916 F33.1 He weaned from the celexa and started with effexor XR 37.5 mg. He has since gone up to 150 mg. If this is not helping we will increase it to 225 mg. [id number] Adair goldberg MD [address] [address] [place] [address] 04/02/2020 09:14:18 04/02/2020 11:04:35 Recurrent major depressive episodes, moderate 711239739 F33.1 pt off venlafaxin e for 1 week, feeling low mood, irritable, headaches, insurance issue with refill, Andreina looked into issue, she will call in venlafaxin e to total 225mg a day today with what preparatio n is approved by his insurance, she will talk with the pharmacist . pt denies suicidal plans. Message sent to Dr Darling as an FYI [id number] Ruthann Trejo MD [address] [address] [place] [address] 05/16/2020 14:00:43 05/16/2020 16:04:17 Pruritic disorder 104607237 L29.9 No rash nor known exposures. He will use cortisone cream and if that doesn't help he will take diphenhydr amine. If it persists he will call for an appointmen t to be evaluated in the office. [id number] Ruthann Trejo MD Main Office [address] [place] [address] 06/23/2020 13:24:24 06/23/2020 14:38:49 Adult health examination 778626782 Z00.00 UTD with immunizati ons. He is due for a colonoscop y and we will schedule this. Polyuria 20574619 R35.8 We discussed adding meds but he is not interested Asymptomat ic human immunodeficiency virus infection 47184866 Z21 followed by Dr Whitman and c/w meds. Blood coag ulation disorder 67771122 D69.9 currently on life-long anticoagul ation for anti cardiolipi n Ab defect. Alcohol dependence 14578 003 F10.20 He hasn't had a drink since October 06, 2018. He continues to attend an on-line group which he finds helpful. Recurrent major depressive episodes, moderate 420556443 F33.1 He weaned from the celexa. Now on effexor XR 225 mg. Body mass index 30+ - obesity 040615677 E66.01 Z68.35 Screening for malignant neoplasm of colon 407308033 Z12.11 Substance abuse 90651364 F19.10 He has been clean since October 06, 2018. [id number] Ruthann Trejo MD Main Office [address] [place] [address] 09/26/2020 13:18:05 09/26/2020 14:25:00 Essential hypertension 68810130 I10 BP good after stopping chlorthali done and decreasing his amlodipine from 10 to 5 mg. Alcohol dependence 22289 003 F10.20 He hasn't had a drink since October 06, 2018. He continues to attend an on-line group which he finds helpful. Asymptomat ic human immunodeficiency virus infection 04885319 Z21 followed by Dr Whitman and c/w meds. Had a small blip in his viral load at 60 when all previous ones had been undetectab le. This was in June and he states may be from missing some doses. He has a f/u with ID today and will get repeat blood work. Insomnia 700210653 G47.0 0 Followed by sleep medicine. Hyperlipidemia 27901466 E78.5 On meds and needs fasting lipids checked at next appointmen t. Recurrent major depressive episodes, moderate 142021614 F33.1 He weaned from the celexa. Now on effexor XR 225 mg. [id number] Ruthann Trejo MD Main Office [address] [place] [address] 11/02/2020 12:50:35 11/02/2020 13:51:25 Trigger finger of left hand [id number] 2979128 M65.342 He had surgery in the past on the right hand. [id number] Gertrude Woods PA-C Main Office [address] [place] [address] 12/16/2020 14:19:25 12/16/2020 15:19:49 Prediabetes 282118248 R73.03 A1C today of 5.8% compared to 5.8% on 06/23/20. Itching of eye 58306584 L29.8 Likely due to dryness and constant rubbing. If persist, advised to see ophthalmol ogist. Dizziness 472916401 R42 Check labs to r/o electrolyt e abnormalit y and anemia. No postural blood pressure changes. No arrhythmia signs. Possibly middle ear fluid due to allergies. PT. is advised to continue allergy meds. F/u after labs as scheduled with PCP. Eczema of ear lobe 02457 000 H60.542 start using steroid cream for 2 weeks. F/u with PCP or schedule with derm if symptoms continue. [id number] Ruthann Trejo MD Main Office [address] [place] [address] 12/27/2020 13:13:54 12/27/2020 14:27:58 Essential hypertension 39461435 I10 BP running a little high today possibly from headaches. Will not make any changes at this time. Tension-type headache 39 4268056 G44.209 He will restart his diclofenac and we will check in with him. If his headaches persist we will do a trial of a triptan. [id number] Ruthann Trejo MD Main Office [address] [place] [address] 02/07/2021 14:54:21 02/07/2021 15:47:22 Essential hypertension 72771773 I10 Good control; continue current mgmt. Recurrent major depressive episodes, moderate 330265016 F33.1 He weaned from the celexa. Now on effexor XR 225 mg. Will consider adding celexa back into his regimen if his symptoms persist. Anxiety 37723429 F41.9 We will do this for a short time during this acute phase. Referral to [facility] for counseling . [id number] Ruthann Trejo MD Main Office [address] [address] [place] [address] 05/31/2021 15:52:24 05/31/2021 16:40:57 Essential hypertension 47445449 I10 Good control; continue current mgmt. He will get a new cuff since he has been using a wrist cuff which may not be giving an accurate reading. [id number] Ruthann Trejo MD Main Office [address] [place] [address] 06/28/2021 13:45:06 06/28/2021 14:58:44 Adult health examination 038357070 Z00.00 UTD with immunizati ons including his COVID vaccine and booster. He had a colonoscop y last year and is due again in 2025. Essential hypertension 61357963 I10 Good control; continue current mgmt. Hyperlipidemia 02989049 E78.5 On meds and needs fasting lipids checked. Recurrent major depressive episodes, moderate 905182854 F33.1 He weaned from the celexa. Now on effexor XR 225 mg. Will consider adding celexa back into his regimen if his symptoms persist. Tobacco de pendence syndrome 24157632 F17.200 He has been cutting down. Obstructiv e sleep apnea syndrome 20802009 G47.33 Pain in left foot 724663 6069 48760 M79.672 Nocturia 599690890 R35.1 Asymptomat ic human immunodeficiency virus infection 82220094 Z21 followed by Dr Whitman and c/w meds. His last labs show a non-detect able viral load. Blood coag ulation disorder 24695257 D69.9 currently on life-long anticoagul ation for anti cardiolipi n Ab defect. Alcohol dependence 47721 003 F10.20 He hasn't had a drink since October 06, 2018. He continues to attend an on-line group which he finds helpful. [id number] Ruthann Trejo MD Main Office [address] [address] [place] [address] 01/23/2022 12:48:13 01/23/2022 13:20:58 Essential hypertension 91892969 I10 Good control; continue current mgmt. Recurrent major depressive episodes, moderate 897453097 F33.1 He weaned from the celexa. Now on effexor XR 225 mg which was helping better in the past but now with increased symptoms of anxiety and depression . Will add wellbutrin 150 mg and see him back in 4 weeks and may increase to 300 mg. [id number] Ruthann Trejo MD Main Office [address] [place] [address] 02/21/2022 11:17:30 02/21/2022 13:27:26 Recurrent major depressive episodes, moderate 050397954 F33.1 He weaned from the celexa. Now on effexor XR 225 mg which was helping better in the past but now with increased symptoms of anxiety and depression . We added wellbutrin 150 mg but he only started it 8 days ago. He will continue with this dose and we will see him in 3 weeks to decide whether or not to increase it to 300 mg. Needs infl uenza immunization 259690692 Z23 Alcohol dependence 96751 003 F10.20 He hasn't had a drink since October 06, 2018. He continues to attend an on-line group which he finds helpful. [id number] Ruthann Trejo MD Main Office [address] [facility] [address] [place] [address] 03/14/2022 08:24:15 03/14/2022 14:24:47 Recurrent major depressive episodes, moderate 828378592 F33.1 He weaned from the celexa. Now on effexor XR 225 mg which was helping better in the past but now with increased symptoms of anxiety and depression . We added wellbutrin 150 mg but he only started it 8 days ago. He will continue with this dose and we will see him in 3 weeks to decide whether or not to increase it to 300 mg. [id number] Josue Bacon MD Main Office [address] [facility] [address] [place] [address] 03/16/2022 07:51:02 03/16/2022 16:22:05 COVID-19 290161312 U07.1 Hypercoagu lability state 23871874 D68.59 Was positive for anticardio lipin Ab but has become negative. 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 [id number] Ruthann Trejo MD [facility] [address] [facility] [address] [place] [address] 04/19/2022 08:25:19 04/20/2022 14:40:08 Recurrent major depressive episodes, moderate 357445270 F33.1 He weaned from the celexa. Now on effexor XR 225 mg and wellbutrin XL 300 mg and his depression is no longer a problem and his anxiety is improved. Continue with current mgmt w/o change an reassess in 3 months. [id number] Ruthann Trejo MD Main Office [address] [facility] [address] [place] [address] 07/10/2022 12:41:47 07/10/2022 13:47:00 Adult health examination 347131743 Z00.00 UTD with immunizati ons including his COVID vaccine and booster. He had a colonoscop y 2 years ago and is due again in 2025. Essential hypertension 68076979 I10 Good control; continue current mgmt. Human immunodeficiency virus enteropathy 894069090 B20 [address] Whitman and remained undetectab le. Insomnia 602519388 G47.0 0 Followed by sleep medicine. Unable to tolerate CPAP. Hypercoagu lability state 27742753 D68.59 He watches for blood and will call if this becomes a problem. Alcohol dependence 31354 003 F10.20 He hasn't had a drink since October 06, 2018. He continues to attend an on-line group which he finds helpful. Recurrent major depressive episodes, moderate 288069996 F33.1 On effexor XR 225 mg and wellbutrin XL 300 mg and his depression was well-contr olled for years but has recently become a problem again. We will refer him back to [facility] for a psych consult. Hyperlipidemia 48531132 E78.5 On meds and needs fasting lipids checked. Nocturia 552710273 R35.1 Asthma 468210270 J45.20 good control with current management . He rarely uses his rescue inhaler. [id number] Ruthann Trejo MD [facility] [address] [facility] [address] [facility] [place] [address] 08/09/2022 14:33:48 08/10/2022 12:28:03 Recurrent major depressive episodes, moderate 361115177 F33.1 He will decrease his bupropion from 300 mg to 150 mg in hopes of decreasing his irritabili ty and anxiety while continuing to treat his depression . We will see him again in 2 weeks. Generalize d anxiety disorder 31106011 F41.1 His anxiety may improve with a decrease in his bupropion dose from 300 to 150 mg. The recommenda tion from [facility] med psych was to go to effexor XR 225 mg but he is already at mx dose. If he improves with the lower dose of bupropion we will try stopping it all together. Id he stills needs augmentati on we will add lamictal at 25 mg and increase to a max of 200 mg if needed. Hyperlipidemia 48725962 E78.5 LDL still not at goal. We will change his simvastati n to atorvastat in to get better control. [id number] Sandy lyn, PAINT SPECIALIST Main Office [address] [facility] [address] [facility] [place] [address] 12/12/2022 15:18:15 12/12/2022 16:39:32 Headache 22133249 R51.9 Severe headache for a week, not responding to oct meds although he has not taken any tylenol today. He is under significan t stress and likely had tension component to the headache. Due length of time and intensity would recommend imaging. Pt does not have anyone to take him to the ED, declines ambulance, prefers to to outpatient imaging. Suggested ED evaluation tonight if worsening. CT ordered stat for tomorrow. Offered gabapentin , pt does not want this. Essential hypertension 08128559 I10 BP controlled today Generalize d anxiety disorder 93784036 F41.1 Relaxation exercises, deep breathing, followup with therapist for anxiety , having new med evaluation provider [id number] Ruthann Trejo MD Main Office [address] [place] [address] [place] [address] 01/07/2023 12:31:40 01/07/2023 13:25:18 Essential hypertension 57014649 I10 Good control; continue current mgmt. 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 He was instructed to fill the script and to bring it in so we can show him how to draw it up and inject himself. He understand s that this med may need a PA and that it may not be covered by his insurance. 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 [id number] Casey Danielle MD [facility] [address] [address] [place] [address] 02/12/2023 12:15:05 02/12/2023 14:08:33 COVID-19 238410751 U07.1 advised pt to hold statin for 1 week, and to decrease his eliquis and buspar dosages by 50% for 5 days cont otc meds (prn tyl, robitussin ) as dir, cont self-isola tion, cont push fluid intake, rest, consider extra vit D for a few days to help boost immune system advised pt only to go to ER if significan t sob where may need to be admitted, o/w avoid going to hospital if at all possible --- call us in 2-3 days if no sig change/imp rovement - consider adding abx == meanwhile, will add cough suppressan t and pred pulse to help keep him out of the hospital -- he is the primary caregiver of his mother who lives with him - he went through this back in 10.22 when he was covid +, the sxs were similar and his mother never got it from him === also, he has nebulizer at home for prn use Persistent cough 0542519 02 R05.3 Asthmatic bronchitis 405 843646 J45.909 Counseling 640271852 Z71 .9 Health advice, education or counseling done for COVID 19 [id number] Malgorzata Mcdowell MD Main Office [address] [address] 05/21/2023 13:32:26 05/21/2023 14:40:52 Essential hypertension 62842243 I10 BP stable in office. Advised pt to not use wrist BP cuff & instead use a regular arm cuff at home. He states that he will get a new cuff. Will have pt bring new machine to bring in at next visit to validate. Encouraged him to cont monitoring daily. Cont amlodipine , lower caffeine to 1-2 cups per day and follow low sodium diet. Dizziness 265874365 R42 Check labs to r/o electrolyt e abnormalit y and anemia. No postural blood pressure changes. No arrhythmia signs. EKG NSR. Possibly middle ear fluid due to allergies or viral illness. PT. is advised to continue allergy meds. F/u after labs as scheduled with PCP. Vitamin D above reference range 894384126 R89.8 vitamin D levels elevated in Januarypt stopped taking supplement sretest levels [id number] Ruthann Trejo MD Main Office [address] [address] 07/17/2023 13:03:45 07/17/2023 14:04:23 Adult health examination 221713790 Z00.00 UTD with immunizati ons including his COVID vaccine and booster. He had a colonoscop y in 2020 and is due again in 2025. Essential hypertension 65885591 I10 Good control; continue current mgmt. Asymptomat ic human immunodeficiency virus infection 00281019 Z21 followed by Dr Whitman and c/w meds. His last labs show a non-detect able viral load. Gastroesop hageal reflux disease 367227817 K21.9 He will try OTC antacids since PPI's can interfere with his HIV meds. Hyperlipidemia 96863634 E78.5 LDL was not at goal on simvastati n so we changed him to atorvastat in a year ago. Hypercoagu lability state 86632332 D68.59 He watches for blood and will call if this becomes a problem. Recurrent major depressive episodes, moderate 847326041 F33.1 He is followed by psych who has been adjusting his meds. Tobacco de pendence syndrome 04587689 F17.200 He has been cutting down. He set a quit date for 10/07/23. Nocturia 024163177 R35.1 Pain of to e of right foot 5895651613 46051 M79.674 Has had pain for months sometimes making it difficult to walk. He will make his own appointmen t. 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 He will look for a pharmacy that carries this and will then make an appointmen t so we can go over how to inject it. [id number] Ruthann Trejo MD Main Office [address] [facility] [address] [place] [address] 02/04/2024 11:21:31 02/04/2024 12:08:17 Essential hypertension 85506660 I10 Good control; continue current mgmt. Pityriasis versicolor [id number] B36.0 Alcohol dependence 19698 003 F10.20 He hasn't had a drink since October 06, 2018. He continues to attend an on-line group which he finds helpful. Asymptomat ic human immunodeficiency virus infection 89141759 Z21 followed by Dr Whitman and c/w veronika. His last labs show a non-detect able viral load. [id number] Ruthann Trejo MD Main Office [address] [facility] [address] [place] [address] 09/29/2024 10:58:09 09/29/2024 12:01:43 Adult health examination [id number] Z00.00 UTD with immunizati ons including his COVID vaccine and booster. He had a colonoscop y in 2020 and is due again in 2025. Acute vasc ular insufficiency of intestine 71772418 K55.9 Chronic. No longer followed by a specialist . On lifelong anticoagul ation and understand s to contact us if he develops any bleeding that doesn't stop. Alcohol dependence 63207 003 F10.20 He hasn't had a drink since October 06, 2018. He continues to attend an on-line group which he finds helpful. Asymptomat ic human immunodeficiency virus infection 64310932 Z21 followed by Dr Whitman and c/w meds. His last labs show a non-detect able viral load. Essential hypertension 28371369 I10 Good control; continue current mgmt. Gastroesop hageal reflux disease 056607558 K21.9 He will try OTC antacids since PPI's can interfere with his HIV meds. Generalize d anxiety disorder 53829210 F41.1 His anxiety continues to be a problem but he does not want to make any changes at this time. He feels that much of his problem is situationa l since he is the primary caregiver for his mother who has dementia. Refer to [facility] letter for changes in the future. Hyperlipidemia 99574007 E78.5 Last LDL was not at goal. Will check fasting lipid level and adjust atorvastat in as needed. Obstructiv e sleep apnea syndrome 36544111 G47.33 He had a machine in the past (maybe 10 years ago?) which was sent back for unclear reasons. He would like to be evaluated again. Recurrent major depressive episodes, moderate 854189342 F33.1 He is followed by psych who has been adjusting his meds. Tobacco de pendence syndrome 10673989 F17.200 He has been cutting down. Eczema of ear lobe 61504 000 H60.549 Body mass index 30+ - obesity 582409756 Z68.35 769207 He would like to see a bariatric surgeon to discuss his options. [id number] Ruthann Trejo MD Main Office [address] [facility] [address] [facility] [place] [address] 01/06/2025 13:09:57 01/06/2025 13:51:39 Essential hypertension 19454453 I10 Good control; continue current mgmt. Type 2 nancy betes mellitus 13053009 E11.9 [id number] His A1C is normal today. He has been working on lifestyle changes. Alcohol dependence 21787 003 F10.20 He hasn't had a drink since October 06, 2018. He continues to attend an on-line group which he finds helpful. Asymptomat ic human immunodeficiency virus infection 98668392 Z21 followed by Dr Whitman and c/w veronika. His last labs show a non-detect able viral load. [id number] Ruthann Trejo MD Main Office [address] [place] [address] 02/17/2025 13:54:54 02/17/2025 15:07:14 Acute low back pain 562345353 M54.50 [id number] No prior episodes. Appears to be muscular. Will get imaging if this persists. [id number] Ruthann Trejo MD Main Office [address] [place] [address] 04/13/2025 13:13:51 04/13/2025 14:20:58 Radicular pain 30976698 M54.10 [id number] He will hold his meloxicam while taking the medrol dose pack. Disorder o f left sciatic nerve 3484701474 56326 M54.32 651131 [id number] Ruthann Trejo MD Main Office [address] [facility] [address] 05/04/2025 13:35:26 05/04/2025 14:32:38 Disorder of left sciatic nerve [id number] 85444 M54.32 [id number] He is scheduled for an MRI on [...] by Organization Details LastModified Time None Recorded Advance Directives Directive Y: Payers Insurance Date Sequence Insurance Name Policy Number Policy Kebede Covered Member ID Kebede Member ID Guarantor Name 06/13/2023 1 [employer] - TOGETHER (MEDICAID HMO) Toby Brasher [id number] Toby Brasher 06/13/2023 1 [employer] [facility] [employer] - MEDICAID ESSENTIAL (MEDICAID HMO) [id number] Toby Brahser [id number] Toby Brasher 05/21/2025 1 [place] [facility] Toby Brasher [id number] Toby Brasher 06/13/2023 1 [facility] (MEDICAID REPLACEMENT - HMO) [id number] Toby Brasher [id number] Toby Brasher Notes Date Note Type Note Provider Name and Address Organization Details Recorded Time 09/29/2024 text/html Generic HPI TemplateReported by PatientUTD with colonoscopy done by Dr Schreiber in 2020 and due again in 2025.UTD with COVID, tetanus, flu, pneumonia, shingles and hepatitis vaccines.Followed by Dr Whitman for his HIV and has remained undetectable.Depressio n and anxiety continue to be a problem.Weight gain despite multiple diets has also been a problem. He would like to look into surgical options.ROS as noted in the HPI Ruthann Trejo MD [address] [address], [place], [phone], [facility] [place] 09/29/2024 19:05:52 01/06/2025 text/html Hypertension F/UReported by PatientHPIFor associated symptoms, patient reportsno dizziness,no lightheadedness,no chest pain,no shortness of breath,no palpitations,no edema, andno calf pain with exertion. For lifestyle, patient reportsregular exerciseandlimiting/av oiding salt. For medications, patient reportstaking medications as directedandno side effects from medication.ROS as noted in the HPI Followed by Dr Whitman for HIV and last viral load from 6 months ago was undetectable.He continues to do well staying off alcohol now more than 6 years.His A1C has been elevated in the past and he has kept this under control with lifestyle changes. Ruthann Trejo MD [address] [facility] [address], [place], [address], [facility] [place] 01/06/2025 13:58:42 02/17/2025 text/html ROS as noted in the HPI He suddenly started having lower back pain about 1 week ago. He denies any injury or prior episodes. He has been taking acetaminophen w/o much help. He has pain with sitting. Denies any radiation. The pain is across his lower back. He has not had any spasms. Denies bowel and bladder problems. Ruthann Trejo MD [address] [address], [place], [address], [facility] [place] 02/17/2025 17:40:03 04/13/2025 text/html ROS as noted in the [...] which was helping. Ruthann Trejo MD [address] [address], [place], [address], [facility] [place] 04/13/2025 20:32:39 05/04/2025 text/html ROS as noted in the [...] Mgmt appointment 05/28. Ruthann Trejo MD [address] [address], [place], [address], [facility] [place] 05/04/2025 14:46:54
== END 2025-05-28 14:02 | disposition home or self-care (01) ==
LOC: HO.HPHYS 13:19
PROVIDERS: PCP Internal Medicine; Visit Provider Physician Assistant
DX: M54.16 Radiculopathy, lumbar region (principal); M47.816 Spondylosis without myelopathy or radiculopathy, lumbar region
CPT/HCPCS: 99204

== ENCOUNTER → 2025-05-28 13:19 | Outpatient (BNVA) | payer MEDICAID, SELFPAY | PROVIDERS: PCP Internal Medicine; Visit Provider Physician Assistant | DX: M47.26 Other spondylosis with radiculopathy, lumbar region (principal) | CPT/HCPCS: 99202 ==